=== PATIENT | female | born 1960 | race Caucasian/White ===

== ENCOUNTER → 2018-01-26 08:56 | Outpatient (CLI) | payer BC, SELFPAY ==
--- NOTE | 2018-01-26 08:59 | MM_ITS ---
. MM Dig screening mamm BI w/CAD CAD Screening ORDERING PHYSICIAN : Enma Fleming PATIENT AGE: 57 years GENDER: Female COMPARISON: Previous mammograms: December 2016. September 2015, August 2014 INDICATION: Routine screening. No hormones no new complaints previous benign surgical excisional biopsy right breast Family history. Maternal aunt with breast cancer TECHNIQUE: Standard CC and MLO images were obtained. R2 CAD reviewed. FINDINGS: Moderate breast density with minor elements most evident towards upper-outer quadrant. RIGHT BREAST:Scattered calcifications throughout the upper-outer quadrant right breast appears similar to studies dating back to at least 2016 as well as 2013. No significant progression in interval change. Scattered character favors benign nature follow up one year adequate. The overall glandular pattern of the right breast appears stable. Follow up one year adequate. LEFT BREAST:New~9 mm x 10 mm ovoid density seen at the retroareolar region.. This is labeled X. At may merely reflect a area of ductal prominence cyst but would benefit from from a CC, and 90 degree spot view followed by ultrasound to further evaluate IMPRESSION: LEFT BREAST New appearing 10 mm focal ovoid density retroareolar region. Recommend spot views and ultrasound to further evaluate RIGHT BREAST stable. Follow-up right mammogram in one year BI-RADS Category: 0 Need Additional Imaging Evaluaiton RECOMMENDED FOLLOW-UP: IMM - IMMEDIATE FOLLOW-UP RECOMMENDED Spot views and ultrasound left breast (A letter has been sent to the patient regarding results of the study.)
--- NOTE | 2018-01-26 09:00 | XR_ITS ---
DEXA SCAN.-BONE DENSITY STUDY HIPS AND LUMBAR SPINE HISTORY: Postmenopausal female TECHNIQUE: . The most complete data summary and color graphic presentation of the today's ( and any prior ) DEXA findings are available in PACS. Definition and treatment guidelines included. COMPARISON: None listed LUMBAR SPINE: Mild dextrocurvature L-spine with Overall mild osteopenia L2 vertebral body demonstrates the lowest T score -2.0 with BMD0.961 g/cm sq Overall mean lumbar L1-L4 T score -1.2 with BMD1.04 g/cm sq . . HIPS: Normal bone density at both hips and both femoral necks Femoral neck density is best predictor of hip fracture risk . demonstrates the lowest T score -0.7 with BMD0.935 g/cm sq . Averaging all region included yields today's Hip Mean T score 0.0 with BMD1.008 g/cm sq . . IMPRESSION 1. LUMBAR SPINE: Overall lumbar T score -1.2 indicating osteopenia . Lowest bone density encountered at L2 vertebra with T score = -2.0 2. HIPS: Overall bilateral hip T score 0.0 = normal Normal bone density at AND both femoral necks. WHO criteria for post-menopausal, Women: Normal: T-score at or above -1 SD Osteopenia: T-score between -1 and -2.5 SD Osteoporosis: T-score at or below -2.5 SD
== END ==
PROVIDERS: Family Provider Physician Assistant; PCP Physician Assistant; Visit Provider Physician Assistant
DX: Z12.31 Encounter for screening mammogram for malignant neoplasm of breast (principal); Z13.820 Encounter for screening for osteoporosis
CPT/HCPCS: 77067; 77080

== ENCOUNTER → 2018-02-05 14:19 | Outpatient (CLI) | payer BC, SELFPAY ==
--- NOTE | 2018-02-05 14:25 | MM_ITS ---
MM Dig mamm DX unilat LT CAD, US breast LT complete . ORDERING PHYSICIAN : Enma Fleming PATIENT AGE: 57 years GENDER: Female COMPARISON: Previous mammograms: January 2018, December INDICATION: Further evaluation retroareolar nodular density with diagnostic spot view mammography; & ultrasound TECHNIQUE: Standard CC and MLO images were obtained. R2 CAD reviewed. ======== DIAGNOSTIC LEFT MAMMOGRAM-WITH SPOT VIEWS . Nodular density at the retroareolar region is again seen measuring just over 8 mm. This was noted on recent screening study from January 2018. Ultrasound will be performed to further evaluate. LEFT BREAST ULTRASOUND . Small cluster tiny apocrine cysts most likely accounts for the area seen at the 11:00 retroareolar region on today's ultrasound. This measures up to 8.5 mm length & likely accounts for the ovoid density behind nipple on today and recent mammography. No dilated ducts or intraductal lesions seen on ultrasound. Is also a small, tiny 3.2 mm benign cyst at 10:00. Deep breast. .. Scattered benign axillary lymph nodes surveyed. No significant findings here.. . IMPRESSION: 8 mm cluster small apocrine cyst,... Most Likely accounts for the density on & recent mammograms Would recommend follow-up mammogram and ultrasound 6 months to confirm stability BI-RADS Category: 3 Benign Finding Short Term Follow-up RECOMMENDED FOLLOW-UP: 6M - 6 MONTH FOLLOW-UP (A letter has been sent to the patient regarding results of the study.)
== END ==
PROVIDERS: Family Provider Physician Assistant; PCP Physician Assistant; Visit Provider Physician Assistant
DX: R92.8 Other abnormal and inconclusive findings on diagnostic imaging of breast (principal)
CPT/HCPCS: 76641; 77065

== ENCOUNTER → 2018-07-30 12:46 | Outpatient (CLI) | payer BC, SELFPAY ==
--- NOTE | 2018-07-30 12:52 | MM_ITS ---
MM Dig mamm DX unilat LT CAD Ordering Physician: Enma Fleming Patient Age: 57 years Female COMPARISON: January 26, 2018, December 2016, September 2015, left mammogram February 2017 INDICATION: Follow-up nodularity retroareolar region left breast. . DIAGNOSTIC LEFT MAMMOGRAM: TECHNIQUE. Full Cc MLO along with CC and MLO spot views left breast performed.. findings: Left breast appears stableNo new areas of concern. . If anything the nodularity at retroareolar region slightly less apparent than on February studies.. Resume Routine follow-up adequate ========= LEFT BREAST ULTRASOUND including axillary survey: On previous February 2018 ultrasound there is a cluster of tiny apocrine cysts at 10 o'clock position. This area is regressed decreased in size since prior study intermediate echogenicity-tiny cysts at this specific area with less fluid.... Now measures 6.5 mm length of 2.6 mm (previously 8.3 mm length x 4.2 mm). This can be followed At 10:00 central breast tiny less than 3 mm cyst At 2:00 small benign 6 mm x 2.6 mm cyst.. Axillary survey with a few small benign lymph node nodes. Largest 1.7 cm ------ IMPRESSION: ------ 1. Stable left mammogram. No new areas of concern 2. Left breast ultrasound: Regression of the previously noted clustered tiny apocrine cyst collection at10:00. This area can be followed . 3. Resume annual bilateral screening mammogram schedule follow-up BI-RADS Category: 2 Benign Finding(s) RECOMMENDED FOLLOW-UP: 6M 6 MONTH FOLLOW-UP to Resume annual bilateral screening schedule. A letter has been sent to the patient regarding results of the study.) Dictated By: Raphael Maxwell Signed By: 08/02/18 0809
--- NOTE | 2018-07-30 14:44 | US_ITS ---
Ordering Physician: Enma Fleming Birad: 2Benign Finding(s) Date of Service: 07/30/18 Follow Up: 6 Month Follow-Up Procedure(s): MM Dig mamm DX unilat LT CAD Accession Number(s): [id number] cc: Enma Fleming ; Raphael Maxwell MM Dig mamm DX unilat LT CAD Ordering Physician: Enma Fleming Patient Age: 57 years Female COMPARISON: January 26, 2018, December 2016, September 2015, left mammogram February 2017 INDICATION: Follow-up nodularity retroareolar region left breast. ===== DIAGNOSTIC LEFT MAMMOGRAM: TECHNIQUE. Full Cc MLO along with CC and MLO spot views left breast performed.. findings: Left breast appears stableNo new areas of concern. . If anything the nodularity at retroareolar region slightly less apparent than on February studies.. Resume Routine follow-up adequate ==== LEFT BREAST ULTRASOUND including axillary survey: On previous February 2018 ultrasound there is a cluster of tiny apocrine cysts at 10 o'clock position. This area is regressed decreased in size since prior study intermediate echogenicity-tiny cysts at this specific area with less fluid.... Now measures 6.5 mm length of 2.6 mm (previously 8.3 mm length x 4.2 mm). This can be followed At 10:00 central breast tiny less than 3 mm cyst At 2:00 small benign 6 mm x 2.6 mm cyst.. Axillary survey with a few small benign lymph node nodes. Largest 1.7 cm ------ IMPRESSION: ------ 1. Stable left mammogram. No new areas of concern 2. Left breast ultrasound: Regression of the previously noted clustered tiny apocrine cyst collection at10:00. This area can be followed . 3. Follow-up in one year recommended BI-RADS Category: 2 Benign Finding(s) RECOMMENDED FOLLOW-UP: 6M 6 MONTH FOLLOW-UP to Resume annual bilateral screening schedule. A letter has been sent to the patient regarding results of the study.) Dictated By: Raphael Maxwell Signed By: 08/02/18 0809
== END ==
PROVIDERS: PCP Physician Assistant; Visit Provider Physician Assistant
DX: R92.8 Other abnormal and inconclusive findings on diagnostic imaging of breast (principal)
CPT/HCPCS: 76641; 77065

== ENCOUNTER → 2020-02-19 10:04 | Outpatient (CLI) | payer BC, SELFPAY ==
--- NOTE | 2020-02-19 10:11 | XR_ITS ---
PROCEDURE: XR MULTIPLE SPINE 6+V CLINICAL INDICATION: LOW BACK PAIN COMPARISON: No exams were available for comparison FINDINGS: Thoracic spine: There is mild multilevel degenerative disc disease with normal alignment. No acute fracture or dislocation. Lumbar spine: Mild lumbar scoliosis convex right. Degenerative disc disease L4-5 and L5-S1. No lytic or blastic change. IMPRESSION: Multilevel thoracic and lumbar degenerative changes Dictated by: Zac Live MD 02/19/2020 14:55 Electronically signed by Zac Live MD in [place] 02/19/2020 14:55
== END ==
PROVIDERS: PCP Nurse Practitioner Family; Visit Provider Nurse Practitioner Family
DX: M54.5 Low back pain (principal)
CPT/HCPCS: 72084

== ENCOUNTER → 2020-02-24 16:40 | Outpatient (CLI) | payer BC, SELFPAY ==
--- NOTE | 2020-02-24 | MM_ITS ---
PROCEDURE: MM DIG SCREENING MAMM BI W/CAD DIGITAL BREAST TOMOSYNTHESIS INCLUDED Patient Age:59Y CLINICAL INDICATION: ROUTINE SCREENING but no hormones but no new complaints.. Right breast. Previous excisional biopsy. Family history. Maternal aunt with breast cancer COMPARISON: [facility] D[facility] MAMM-SCREEN MYRANDA from 08/29/2014 [facility] D[facility] MAMM-SCREEN MYRANDA from 09/16/2015 [facility] MAMM-SCREEN MYRANDA W/CAD from 12/22/2016 [facility] MM Dig screening mamm BI w/CAD from 01/26/2018 BREASTLT US breast LT complete from 02/05/2018 [facility] MM Dig mamm DX unilat LT CAD from 02/05/2018 DXLT MM Dig mamm DX unilat LT CAD from 07/30/2018 BREASTLT US breast LT complete from 07/30/2018 TECHNIQUE: Standard CC and MLO images were obtained. R2 CAD reviewed. Bilateral digital breast tomosynthesis included.. Additional axillary CC view both breast included FINDINGS: Stable appearing wqlv-da-admnivit fibroglandular elements bilaterally most evident towards upper-outer quadrant. Stable mild asymmetry but no new dominant or suspicious mass. No suspicious calcifications. Right breast no new areas of concern t Left breast: No new areas of significant concern. The the cyst/nodule at the retroareolar region noted in 1999 [age] a is no longer evident However there is a stable small spindle shaped area lateral central breast is again noted and appears similar to 2018 MLO and CC view is seen on tomosynthesis today. It measures up to 9 mm x 4.5 mm on today's MLO view. A small elongated cyst at 2 o'clock noted on July 2018 ultrasound may correlate. Given the stability since 2018 mammogram believe a follow-up bilateral mammogram 1 year adequate but should be encouraged emphasized IMPRESSION: No new areas of significant concern Small stable ovoid density at the lateral left breast most likely cyst.-No significant change here since 2018 Bilateral follow-up 1 year recommended and should be emphasized/encouraged BI-RAD Category: 2 Benign Finding(s) FOLLOW-UP: 1YR 1 Year Follow-up (A letter has been sent to the patient regarding results of the study.) Dictated by: Kristopher Maxwell MD 02/26/2020 11:13 Electronically signed by Kristopher Maxwell MD in [place] 02/26/2020 11:13
== END ==
PROVIDERS: PCP Nurse Practitioner Family; Visit Provider Nurse Practitioner Family
DX: Z12.31 Encounter for screening mammogram for malignant neoplasm of breast (principal)
CPT/HCPCS: 77063; 77067

== ENCOUNTER → 2020-03-17 13:22 | Outpatient (CLI) | payer BC, SELFPAY ==
--- NOTE | 2020-03-17 | XR_ITS ---
PROCEDURE: XR HIP RT 2-3V W/PELVIS CLINICAL INDICATION: Pain pain COMPARISON: XR HIP LT 2-3V W/PELVIS from 03/17/2020 FINDINGS: No fracture or dislocation is evident. No significant degenerative change. No lytic or blastic change. Unremarkable soft tissues. 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
--- NOTE | 2020-03-17 | XR_ITS ---
PROCEDURE: XR HIP LT 2-3V W/PELVIS CLINICAL INDICATION: USPECIFIED OSTEOARTHRITIS, USPECIFIED SITE Pain COMPARISON: No exams were available for comparison FINDINGS: No fracture or dislocation is evident. No significant degenerative change. No lytic or blastic change. Unremarkable soft tissues. IMPRESSION: Negative left hip Dictated by: Zac Live MD 03/17/2020 14:46 Electronically signed by Zac Live MD in [place] 03/17/2020 14:46
--- NOTE | 2020-03-17 13:30 | XR_ITS ---
PROCEDURE: XR KNEE LT 2V CLINICAL INDICATION: pain COMPARISON: KNEE3R KNEE-3 VIEWS-RT from 09/02/2015 KNEE3L KNEE-3 VIEWS-LT from 06/17/2017 FINDINGS: No fracture or dislocation. No lytic or blastic change. There is normal mineralization. Mild osteoarthritic change of the medial and lateral compartment Other findings:None. IMPRESSION: Mild osteoarthritis Dictated by: Zac Live MD 03/17/2020 14:48 Electronically signed by Zac Live MD in [place] 03/17/2020 14:48
--- NOTE | 2020-03-17 13:30 | XR_ITS ---
PROCEDURE: XR KNEE RT 2V CLINICAL INDICATION: Knee pain COMPARISON: KNEE3R KNEE-3 VIEWS-RT from 09/02/2015 KNEE3L KNEE-3 VIEWS-LT from 06/17/2017 FINDINGS: No fracture or dislocation. No lytic or blastic change. There is normal mineralization. There are mild tricompartmental osteoarthritic changes Other findings:None. IMPRESSION: Mild osteoarthritis Dictated by: Zac Live MD 03/17/2020 14:47 Electronically signed by Zac Live MD in [place] 03/17/2020 14:47
== END ==
PROVIDERS: PCP Nurse Practitioner Family; Visit Provider Internal Medicine Rheumatology
DX: M19.90 Unspecified osteoarthritis, unspecified site (principal)
CPT/HCPCS: 73502; 73560

== ENCOUNTER → 2020-06-18 07:40 | Outpatient (CLI) | payer BC, SELFPAY ==
--- NOTE | 2020-06-18 07:47 | CT_ITS ---
PROCEDURE: CT HEAD/BRAIN WO CON CLINICAL INDICATION: PERSISTENT HEADACHE COMPARISON: No exams were available for comparison TECHNIQUE: Axial images obtained. All CT scans at the facility use one or more dose reduction, viz: automated exposure control, ma/kV adjustment per patient size (including targeted exams where dose is matched to indication, i.e. head), or iterative reconstruction technique. FINDINGS: No midline shift, mass effect, intracranial hemorrhage, hydrocephalus, or extra-axial fluid collection is evident. The calvarium has an unremarkable appearance. No mastoid effusion. No sinus air-fluid level. Because ule thickening of the roof of the maxillary sinus on the right. IMPRESSION: No acute intracranial finding Dictated by: Zac Live MD 06/18/2020 13:25 Zac Live MD in [place] 06/18/2020 13:25
== END ==
PROVIDERS: PCP Nurse Practitioner Family; Visit Provider Nurse Practitioner Family
DX: G44.52 New daily persistent headache (NDPH) (principal)
CPT/HCPCS: 70450

== ENCOUNTER 2021-09-15 17:07 | Emergency (ER) | payer BC, SELFPAY ==
--- NOTE | 2021-09-15 17:21 | XR_ITS ---
PROCEDURE INFORMATION: Exam: XR Right Hand Exam date and time: 09/15/2021 5:21 PM Age: 60 years old Clinical indication: Pain; Hand; Right; Additional info: Pain at 3rd mcp joint; No injury or trauma TECHNIQUE: Imaging protocol: XR Right hand. Views: 3 or more views. COMPARISON: No relevant prior studies available. FINDINGS: Bones/joints: No fracture. Degenerative/arthritic change at the 3rd metacarpal phalangeal joint, no periarticular erosion. Soft tissues: Possible minimal edema. IMPRESSION: 3rd MCP joint degenerative/arthritic change.
[2021-09-15 17:26] VITALS: BP 148/88; PULSE 66; RESP 18; TEMP 36.8; O2SAT 97; BMI 41.5
--- NOTE | 2021-09-15 17:54 | HMH.EDUTC ---
[facility] [place] Disposition Clinical Impression: Hand pain Qualifiers: Laterality: right Qualified Code(s): M79.641 - Pain in right hand Disposition: Home, Self-Care Condition on Discharge: Good Instructions: DI for Arthritis Additional Instructions: Power wrap may help with swelling and pain Elevate when at rest may help with swelling Follow up iwth your Family Doctor if no improvement or any worsening of symptoms Over the counter Motrin and/or Tylenol arthritis if you can take it Return if needed Follow up with your Family Doctor if symptoms persist Referrals: Karen Darling [Primary Care Provider] - As needed Time of Disposition: 18:18 Medical Decision Making - Mika Inquiry Pt receiving controlled substance: No Mika was queried for this patient: No Vital Signs: 09/15/21 17:26 Temperature 98.3 F Temperature Source Oral Pulse Rate [Left] 66 Respiratory Rate 18 Blood Pressure [Right Arm] 148/88 H Blood Pressure Mean [Right Arm] 108 02 Sat by Pulse Oximetry 97 [facility] [place] HPI - General Stated complaint: Pain R hand Time Seen by Provider: 09/15/21 17:54 Mode of Arrival: Ambulatory Source of Information: Patient Limitations: No Limitations Description of Symptoms (Recalled from Triage Doc. by RN): pt states she woke up with am with R hand pain. pt states he hand started swelling as the day went on. pts index and middle finger knuckes are swollen. HEENT Symptoms (Recalled from RN notes): No Resp Symptoms (Recalled from RN notes): No Skin Symptoms (Recalled from RN notes): No MS Symptoms (Recalled from RN notes): Yes Functional Status (Recalled from RN notes): wnl - History of Present Illness Provider Complaint: Patient states that when she woke up this morning she was having pain in her right hand State that she went on about a her day and noticed it looked like she was having some swelling around the base of her index and middle finger and hurt when she would try to bend them so this evening she was still having pain so she came in - Related Data Allergies Allergy/AdvReac Type Severity Reaction Status Date / Time cephalexin [From KEFLEX] Allergy Intermediate I-HIVES Verified 12/12/18 15:23 codeine [CODEINE] Allergy Mild NA-NAUSEA/V Verified 12/12/18 15:23 OMITING levofloxacin [From LEVAQUIN] Allergy Mild JOINT Verified 12/12/18 15:23 PAIN - Worker's Comp Is this a Worker's Comp case?: No H History - Hepatitis A Screen Drug use history?: No High risk sexual behaviors?: No History of sexually transmitted infection?: No Currently employed?: No Childcare worker?: No Do you have indoor plumbing?: Yes Do you have electricity?: Yes Attestation statement:: This patient has been screened for Hepatitis A risk factors. I have reviewed the patient's past medical history: Yes Laterality Cases: Bilateral: Tonsillectomy Fractures: Yes (HAND,ANKLE,ARM) - Social History Alcohol Intake: never Occupational Status: employed ROS Obtained: Yes All systems reviewed & no additional complaints, Yes Systems reviewed as appropriate & no additional complaints - Constitutional Constitutional: Reports system reviewed and no additional complaints, except as docu, Denies body ache, Denies chills, Denies fever(s) - ENT Ears, Nose, Mouth, and Throat: Reports system reviewed and no additional complaints, except as docu - Cardiovascular Cardiovascular: Reports system reviewed and no additional complaints, except as docu - Respiratory Respiratory: Reports system reviewed and no additional complaints, except as docu - Gastrointestinal Gastrointestingal: Reports: system reviewed and no additional complaints, except as docu - Musculoskeletal Musculoskeletal: Reports system reviewed and no additional complaints, except as docu, Reports other (pain and mild swelling in right hand no injury) Physical Exam - General General appearance: alert, in no apparent distress - Respiratory Respiratory exam: Present: n
[2021-09-15 18:20] VITALS: BP 148/88; PULSE 66; RESP 18; TEMP 36.8
== END 2021-09-15 18:21 | disposition home or self-care (01) ==
PROVIDERS: Emergency Provider Nurse Practitioner; PCP Nurse Practitioner Family
DX: M79.641 Pain in right hand (principal); Z88.1 Allergy status to other antibiotic agents
CPT/HCPCS: 73130; 99202; G0463

== ENCOUNTER 2022-06-14 13:18 | Inpatient (IN) | payer BC, SELFPAY ==
[2022-06-14] VITALS (8 sets, daily range): BP systolic 110–147; BP diastolic 62–87; PULSE 85–103; RESP 16–18; TEMP 37.4–38; O2SAT 94–98; BMI 41.9; BMI 42.0
--- NOTE | 2022-06-14 13:35 | CT_ITS ---
FINAL REPORT CLINICAL HISTORY: Lwr abd pain wrapping around to bilat sides of lwr back x 1 day, NKT FINDINGS: CT OF THE ABDOMEN AND PELVIS WITH CONTRAST Axial CT images of the abdomen and pelvis were obtained after the administration of intravenous contrast. Coronal reformatted images were also obtained and reviewed.This study was performed with techniques to keep radiation doses as low as reasonably achievable (ALARA). Individualized dose reduction techniques using automated exposure control or adjustment of mA and/or kV according to the patient's size were employed. Abdomen: There is mild bibasilar atelectasis.. The heart is normal in size. The liver has an unremarkable appearance. There is evidence of cholecystectomy. There is mild biliary duct dilatation that may represent post cholecystectomy change. The spleen is unremarkable. No adrenal mass is present. The pancreas has an unremarkable appearance. The kidneys are normal, without evidence of mass or hydronephrosis. The aorta is normal in caliber. There is no free fluid or adenopathy. No mass or abnormal fluid collection is seen. Pelvis: The appendix is not well-visualized. The urinary bladder is unremarkable. There is diverticulosis of the sigmoid colon. There is stranding adjacent to the proximal sigmoid colon that may represent mild acute diverticulitis or sequela of prior diverticulitis. There is a focus of extraluminal air in this region consistent with micro perforation. Inferior to the inflammation is a 3.4 cm focus of heterogeneous soft tissue of uncertain etiology. This could represent the left ovary or possibly inflamed soft tissue. There has been hysterectomy. IMPRESSION: Sigmoid colon diverticulosis with adjacent stranding that may represent mild acute diverticulitis or sequela of prior diverticulitis. There is a micro perforation in this region. Heterogeneous soft tissue inferior to the inflammation could represent the left ovary or possibly inflamed soft tissue. This could be followed up with CT or ultrasound. Reviewed, Interpreted and Dictated by Young Leroy III, MD Transcribed by Wyatt Saba Authenticated and [facility]
[2022-06-14 13:42] LABS: Microscopic, Urine URINE MICROSCOPIC (MICROSCOPIC)
--- NOTE | 2022-06-14 13:45 | HMH.EDGENADL ---
Discharge Plan Disposition Patient Disposition: Admitted As Inpatient Condition: Fair Referrals Follow up/Referrals: Karen Darling [Primary Care Provider] - See instructions Clinical Impressions Clinical Impression: Diverticulitis of colon with perforation Instructions Patient Instructions: DI for Acute Abdominal Pain Discharge ED Provider: Ismael Sanabria General Adult HPI General Chief complaint: Abdominal Pain Stated complaint: Severe stomach pain Time Seen by Provider: 06/14/22 13:39 Mode of Arrival: Ambulatory Source of Information: Patient Limitations: No Limitations Description of Symptoms (Recalled from ER Triage Doc. by RN): c/o lower abdominal pain that started earlier today with pain traveling to her back now, fever and chills, tylenol taken prior to arrival, clint any n/v/d History of Present Illness HPI narrative: This morning awakened with left lower quadrant pain which is since now become diffuse across her lower abdomen into her lower back. Developed a fever of 102 degrees and chills. She took Tylenol for that. No nausea, vomiting, diarrhea, or urinary symptoms. No previous similar symptoms. She has had a prior cholecystectomy and appendectomy. Related Data Allergies Allergy/AdvReac Type Severity Reaction Status Date / Time cephalexin [From KEFLEX] Allergy Intermediate I-HIVES Verified 12/12/18 15:23 codeine [CODEINE] Allergy Mild NA-NAUSEA/V Verified 12/12/18 15:23 OMITING levofloxacin [From LEVAQUIN] Allergy Mild JOINT Verified 12/12/18 15:23 PAIN PFSH PFSH Social History Smoking Status: Never smoker alcohol intake: never current occupational status: employed Travel in the last 8 weeks: None ROS Obtained: Yes Systems reviewed as appropriate & no additional complaints except as documented Constitutional Constitutional: Reports chills, Reports fever(s), Denies headache(s) and Denies weakness ENT Ears, Nose, Mouth, and Throat: Denies headache(s), Denies nasal discharge and Denies sore throat Cardiovascular Cardiovascular: Denies chest pain Respiratory Respiratory: Denies shortness of breath and Denies cough Gastrointestinal Gastrointestingal: Reports abdominal pain; Denies constipation, diarrhea or vomiting Genitourinary Female Genitourinary: Denies difficulty voiding, Denies dysuria and Denies flank pain Musculoskeletal Musculoskeletal: Denies numbness Neurologic Neurologic: Denies headache(s), Denies numbness and Denies weakness Physical Exam General General appearance: alert and in no apparent distress Head Head exam: atraumatic and normocephalic Eye Eye exam: Present normal appearance and EOMI ENT ENT exam: Present mucous membranes moist Neck Neck exam: Present normal inspection and trachea midline Chest Chest inspection: Present normal inspection and symmetric chest wall rise Respiratory Respiratory exam: Present normal lung sounds bilaterally; Absent respiratory distress Cardiovascular Cardiovascular exam: Present regular rate, normal rhythm and normal heart sounds Abdominal Exam Abdominal exam: Present soft, tenderness and diminished bowel sounds; Absent distention, guarding, rebound or rigidity Abdominal tenderness: Present RLQ, LLQ and suprapubic Extremities Exam Extremities exam: Present normal inspection Back Exam Back exam: Absent CVA tenderness (R) or CVA tenderness (L) Neurological Exam Neurological exam: Present alert and oriented X3 Psychiatric Psychiatric exam: Present normal affect and normal mood Skin Skin exam: Present warm and dry Medical Decision Making Mika Inquiry Pt receiving controlled substance: No Vital Signs: 06/14/22 13:18 06/14/22 14:01 06/14/22 14:30 Temperature 99.5 F Temperature Source Oral Pulse Rate 85 90 Pulse Rate [Left Radial] 91 H Respiratory Rate 18 18 16 Blood Pressure 127/62 147/63 H Blood Pressure [Right Arm] 134/74 Blood Pressure Mean 93 91 Blood Pressure Mean [Right Arm] 94 Blood P
[2022-06-14 13:48] LABS: Alanine Aminotransferase 27 U/L (12-78); Albumin Level 4.2 g/dl (3.5-5.0); Albumin/Globulin Ratio 1.2 (1.1-1.8); Alkaline Phosphatase 143 U/L (38-126); Amylase 62 U/L (30-110); Anion Gap 12.2 mEq/L (5-15); Aspartate Amino Transferase 32 U/L (14-36); Bilirubin,Total 0.6 mg/dl (0.2-1.3); Blood Urea Nitrogen 19 mg/dl (7-17); Carbon Dioxide 27 mmol/L (22.0-30.0); Chloride 102 mmol/L (98-107); Creatinine Clearance Estimated 53 mL/min (50-200); Estimated Glomerular Filt Rate 73 ml/min (>60); GFR (African American) 88 ML/MIN (>60); Globulin 3.4 g/dL (1.3-3.2); Glucose 100 mg/dl (74-100); Lipase 197 U/L (23-300); Potassium 4.2 mmoL/L (3.5-5.1); Sodium 137 mmol/L (136-145); Total Protein,Serum 7.6 g/dl (6.3-8.2)
[2022-06-14 13:50] LABS: Appearance,Urine CLEAR (Clear); Bilirubin,Urine Negative (Negative); Blood, Urine Negative (Negative); Color,Urine YELLOW (Yellow); Glucose,Urine (UA) Negative (Negative); Ketones,Urine Negative (Negative); Leukocyte Esterase,Urine Negative (Negative); Nitrate,Urine Negative (Negative); PH,Urine 6.5 (5.0-8.5); Protein,Urine Negative (Negative); Urobilinogen,Urine 0.2 EU/dl (0.2)
[2022-06-14 13:56] LABS: Basophils # 0.1 K/mm3 (0-0.2); Basophils % 0.4 % (0.1-2.0); Eosinophils # 0.2 K/mm3 (0.0-0.4); Eosinophils % 1.3 % (0.1-12.0); Hemoglobin 14.4 g/dL (12.2-16.2); Lymphocytes # 1.1 K/mm3 (0.7-4.5); Lymphocytes % 8.2 % (10-50); Mean Corpuscular HGB Conc 32.7 g/dL (31.8-35.4); Mean Corpuscular Hemoglobin 27.9 pg (27.0-31.2); Mean Corpuscular Volume 85.1 fl (81-99); Mean Platelet Volume 7.7 fl (7.4-10.4); Monocytes # 0.5 K/mm3 (0.1-1.0); Monocytes % 3.8 % (1.7-9.3); Neutrophils # 11.3 K/mm3 (1.8-7.8); Neutrophils % 86.3 % (37.0-80.0); Platelet Count 282 K/mm3 (142-424); Red Blood Count 5.17 M/mm3 (4.20-5.40); Red Cell Distribution Width 13.4 % (11.5-17.5); White Blood Count 13.1 K/mm3 (4.8-10.8)
[2022-06-14 14:08] LABS: MANUAL DIFFERENTIAL MANUAL DIFFERENTIAL (MANUAL DIFF)
[2022-06-14 14:09] LABS: Coronavirus 19, PCR Not Detected (NotDetected); Influenza A, PCR Not Detected (NotDetected); Influenza B, PCR Not Detected (NotDetected)
[2022-06-14 14:13] LABS: Lymphocytes % 13 % (10-50); Monocytes % 5 % (2-9); Neutrophils % 82 % (42-76); Total Cells Counted 100
[2022-06-14 14:14] LABS: Platelet Estimate Normal; RBC Morphology Normal
--- NOTE | 2022-06-14 15:18 | PC.NURSE ---
Dr Sanabria speaking with Dr Weinstein
--- NOTE | 2022-06-14 15:23 | EXP.SURG.CON ---
History of Present Illness *Admission Date: 06/14/22 *Reason for visit:: Abdominal pain, diverticulitis *History of present illness: Patient is a 61-year-old female from [place]. She had presented to the emergency department with complaints of lower abdominal pain beginning earlier today with radiation into her back. She did have some apparent fevers at home and had treated prior to arrival with Tylenol. Pain initiated in the left lower quadrant and then became more diffuse with radiation to the back. She has previously had cholecystectomy as well as appendectomy. Evaluation in the emergency department revealed mild leukocytosis of 13,000. She underwent CT scan which revealed findings of sigmoid diverticulosis with adjacent stranding which may represent mild acute diverticulitis . However, there was also a microperforation in this region . There was also noted to be heterogeneous soft tissue inferior to the findings of inflammation which was felt to be possibly left ovary or possibly inflamed soft tissue according to the radiologist reading. Patient does state that she had a colonoscopy about 5 years ago. Exact details are unknown. [facility] Medical History (Updated 06/14/22 @ 15:51 by Divya Wilson RN) Hypertension Hypothyroid Surgical History (Updated 06/14/22 @ 15:51 by Divya Wilson RN) History of appendectomy History of cholecystectomy History of hysterectomy History of tonsillectomy Social History Smoking Status: Never smoker alcohol intake: never current occupational status: employed Travel in the last 8 weeks: None Review of Systems Constitutional Constitutional: Denies headache(s) and Denies weakness ENT Ears, Nose, Mouth, and Throat: Denies headache(s) *Musculoskeletal Musculoskeletal: Denies numbness *Neurologic Neurologic: Denies headache(s), Denies numbness and Denies weakness Meds Home Medications and Allergies Home Medications Medication Instructions Recorded Confirmed Type buspirone 10 mg tablet 10 mg PO TID Anxiety 06/14/22 06/14/22 History fluoxetine 10 mg capsule 10 mg PO .EVERY OTHER DAY mood 06/14/22 06/14/22 History levothyroxine 112 mcg tablet 112 mcg PO DAILY thyroid 06/14/22 06/14/22 History liothyronine 5 mcg tablet 5 mcg PO DAILY thyroid 06/14/22 06/14/22 History liraglutide (weight loss) 3 mg/0.5 0.6 mg SQ DAILY Weight loss 06/14/22 06/14/22 History mL (18 mg/3 mL) subcut pen injector (Sathish) losartan 25 mg tablet 25 mg PO DAILY High blood pressure 06/14/22 06/14/22 History meloxicam 15 mg tablet 15 mg PO DAILY muscle relaxant 06/14/22 06/14/22 History New Prescriptions to Start Prescriptions: Allergies Allergy/AdvReac Type Severity Reaction Status Date / Time cephalexin [From KEFLEX] Allergy Intermediate I-HIVES Verified 12/12/18 15:23 codeine [CODEINE] Allergy Mild NA-NAUSEA/V Verified 12/12/18 15:23 OMITING levofloxacin [From LEVAQUIN] Allergy Mild JOINT Verified 12/12/18 15:23 PAIN Exam (Inpt) Vital signs and Labs for Last 24 Hours: Temp Pulse Resp BP Pulse Ox 99.5 F 90 16 147/63 H 98 06/14/22 13:18 06/14/22 14:30 06/14/22 14:30 06/14/22 14:30 06/14/22 14:30 Laboratory Results - last 24 hr 06/14/22 13:21: Urine Color Yellow, Urine Appearance Clear, Urine pH 6.5, Ur Specific [place] 1.010, Urine Protein Negative, Urine Glucose (UA) Negative, Urine Ketones Negative, Urine Blood Negative, Urine Nitrate Negative, Urine Bilirubin Negative, Urine Urobilinogen 0.2, Ur Leukocyte Esterase Negative, Urine RBC None, Urine WBC 3-5, Ur Squamous Epith Cells 5-10, Urine Bacteria None 06/14/22 13:30: WBC 13.1 H, RBC 5.17, Hgb 14.4, Hct 44.0, MCV 85.1, MCH 27.9, MCHC 32.7, RDW 13.4, Plt Count 282, MPV 7.7, Neut % (Auto) 86.3 H, Lymph % (Auto) 8.2 L, [place] % (Auto) 3.8, Eos % (Auto) 1.3, Baso % (Auto) 0.4, Neut # (Auto) 11.3 H, Lymph # (Auto) 1.1, [place] # (Auto) 0.5, Eos # (Auto) 0.2, Baso # (Auto) 0.1, Total Counted 100, Neutr
--- NOTE | 2022-06-14 15:24 | PC.NURSE ---
Dr Sanabria speaking to hospitalist
--- NOTE | 2022-06-14 15:32 | PC.NURSE ---
Dr Sanabria spoke with Dr Kumar for admission
--- NOTE | 2022-06-14 15:46 | PC.NURSE ---
Dr Weinstein in with pt.
--- NOTE | 2022-06-14 15:46 | PC.NURSE ---
Care management called for admission
--- NOTE | 2022-06-14 16:00 | HMH.PHAINT1 ---
Pharmacy Intervention Comments: Home medication reconciliation completed using outpatient pharmacy list.
--- NOTE | 2022-06-14 16:12 | PC.NURSE ---
called report to dylan on med/surg. awaiting admission orders by hospitalist
--- NOTE | 2022-06-14 16:28 | EXP.HP ---
History of Present Illness *Admission Date: 06/14/22 *History of present illness: Patient is a 61-year-old female from [place]. She had presented to the emergency department with complaints of lower abdominal pain beginning earlier today with radiation into her back. She did have some apparent fevers at home and had treated prior to arrival with Tylenol. Pain initiated in the left lower quadrant and then became more diffuse with radiation to the back. Pt has h/o cholecystectomy, appendectomy, and hysterectomy. She does still have her ovaries. Evaluation in the emergency department revealed mild leukocytosis of 13.1. She underwent CT scan which revealed findings of sigmoid diverticulosis with adjacent stranding which may represent mild acute diverticulitis . However, there was also a microperforation in this region . There was also noted to be heterogeneous soft tissue inferior to the findings of inflammation which was felt to be possibly left ovary or possibly inflamed soft tissue according to the radiologist reading. Patient does state that she had a colonoscopy about 5 years ago. Exact details are unknown. - Pt reports fever of 102 at home and chills, ROS is otherwise negative. PFSH PFSH Medical History (Updated 06/14/22 @ 16:37 by Fuentes Kumar MD) Hypertension Hypothyroid Surgical History (Updated 06/14/22 @ 15:51 by Divya Wilson RN) History of appendectomy History of cholecystectomy History of hysterectomy History of tonsillectomy Social History Smoking Status: Never smoker alcohol intake: never current occupational status: employed Travel in the last 8 weeks: None Review of Systems Constitutional Constitutional: Reports chills, Reports fatigue, Reports fever(s), Denies headache(s) and Denies weakness Eyes Eyes: Denies change in vision ENT Ears, Nose, Mouth, and Throat: Denies dizziness, Denies dysphagia, Denies headache(s) and Denies sinus pressure *Cardiovascular Cardiovascular: Denies chest pain, Denies dyspnea, Denies edema and Denies palpitations *Respiratory Respiratory: Denies cough, Denies dyspnea and Denies hemoptysis *Gastrointestinal Gastrointestinal: Reports abdominal pain (LLQ), Denies change in bowel habits, Denies change in stool character, Denies coffee ground emesis, Denies constipation, Denies dysphagia, Denies hematemesis, Denies hematochezia and Denies melena *Genitourinary Genitourinary: Denies difficulty voiding, Denies dysuria and Denies hematuria *Musculoskeletal Musculoskeletal: Denies abnormal gait, Denies arthralgias and Denies numbness *Neurologic Neurologic: Denies abnormal gait, Denies behavioral changes, Denies confusion, Denies dizziness, Denies headache(s), Denies numbness and Denies weakness Psychiatric Psychiatric: Denies anxiety, Denies behavioral changes, Denies change in appetite, Denies confusion and Denies depression Endocrine Endocrine: Reports fatigue and Denies palpitations Meds Home Medications and Allergies Home Medications Medication Instructions Recorded Confirmed Type buspirone 10 mg tablet 10 mg PO TID Anxiety 06/14/22 06/14/22 History fluoxetine 10 mg capsule 10 mg PO .EVERY OTHER DAY mood 06/14/22 06/14/22 History levothyroxine 112 mcg tablet 112 mcg PO DAILY thyroid 06/14/22 06/14/22 History liothyronine 5 mcg tablet 5 mcg PO DAILY thyroid 06/14/22 06/14/22 History liraglutide (weight loss) 3 mg/0.5 0.6 mg SQ DAILY Weight loss 06/14/22 06/14/22 History mL (18 mg/3 mL) subcut pen injector (Saxenda) losartan 25 mg tablet 25 mg PO DAILY High blood pressure 06/14/22 06/14/22 History meloxicam 15 mg tablet 15 mg PO DAILY muscle relaxant 06/14/22 06/14/22 History New Prescriptions to Start Prescriptions: Allergies Allergy/AdvReac Type Severity Reaction Status Date / Time cephalexin [From KEFLEX] Allergy Intermediate I-HIVES Verified 12/12/18 15:23 codeine [CODEINE] Allergy Mild NA-NAUSEA/V Verified 12/12/18 15:23 OMITING levof
[2022-06-15] VITALS (7 sets, daily range): BP systolic 109–127; BP diastolic 60–77; PULSE 72–82; RESP 17–18; TEMP 36.7–37.3; O2SAT 94–97; BMI 42.0
--- NOTE | 2022-06-15 05:44 | PC.NURSE ---
AOx4. Pt has c/o of mid lower abdominal pain 2 x t/o shift. IV Toradol administered per MAR, pt states favorable results. Able to ambulate to BR with standby assist. Call light within reach.
[2022-06-15 06:33] LABS: Chloride 108 mmol/L (98-107); Potassium 3.7 mmoL/L (3.5-5.1); Sodium 140 mmol/L (136-145)
[2022-06-15 06:35] LABS: Blood Urea Nitrogen 14 mg/dl (7-17); Creatinine Clearance Estimated 53 mL/min (50-200); Estimated Glomerular Filt Rate 73 ml/min (>60); GFR (African American) 88 ML/MIN (>60)
[2022-06-15 06:36] LABS: Alanine Aminotransferase 21 U/L (12-78); Albumin Level 3.4 g/dl (3.5-5.0); Albumin/Globulin Ratio 1.2 (1.1-1.8); Alkaline Phosphatase 116 U/L (38-126); Anion Gap 10.7 mEq/L (5-15); Aspartate Amino Transferase 28 U/L (14-36); Bilirubin,Total 0.8 mg/dl (0.2-1.3); Carbon Dioxide 25 mmol/L (22.0-30.0); Globulin 2.9 g/dL (1.3-3.2); Glucose 99 mg/dl (74-100); Total Protein,Serum 6.3 g/dl (6.3-8.2)
[2022-06-15 06:37] LABS: Magnesium 2.1 mg/dl (1.6-2.3)
[2022-06-15 06:46] LABS: Basophils % 0.4 % (0.1-2.0); Eosinophils # 0.2 K/mm3 (0.0-0.4); Eosinophils % 2.8 % (0.1-12.0); Hematocrit 38.7 % (37.0-47.0); Lymphocytes # 1.1 K/mm3 (0.7-4.5); Lymphocytes % 13.1 % (10-50); Mean Corpuscular HGB Conc 31.4 g/dL (31.8-35.4); Mean Corpuscular Hemoglobin 27.2 pg (27.0-31.2); Mean Corpuscular Volume 86.7 fl (81-99); Mean Platelet Volume 7.3 fl (7.4-10.4); Monocytes # 0.5 K/mm3 (0.1-1.0); Monocytes % 5.9 % (1.7-9.3); Neutrophils # 6.5 K/mm3 (1.8-7.8); Neutrophils % 77.9 % (37.0-80.0); Platelet Count 207 K/mm3 (142-424); Red Blood Count 4.47 M/mm3 (4.20-5.40); Red Cell Distribution Width 12.7 % (11.5-17.5); White Blood Count 8.3 K/mm3 (4.8-10.8)
[2022-06-15 06:48] LABS: Hemoglobin 12.1 g/dL (12.2-16.2)
--- NOTE | 2022-06-15 08:29 | P.PN_ITS ---
Subjective Patient reports: feels better and still having pain Exam Data for Last 24 hours Vital signs and Labs for Last 24 Hours: Temp Pulse Resp BP Pulse Ox 98.2 F 76 17 124/61 96 06/15/22 07:49 06/15/22 07:49 06/15/22 07:49 06/15/22 07:49 06/15/22 07:49 Laboratory Results - last 24 hr 06/14/22 13:21: Urine Color Yellow, Urine Appearance Clear, Urine pH 6.5, Ur Specific [place] 1.010, Urine Protein Negative, Urine Glucose (UA) Negative, Urine Ketones Negative, Urine Blood Negative, Urine Nitrate Negative, Urine Bilirubin Negative, Urine Urobilinogen 0.2, Ur Leukocyte Esterase Negative, Urine RBC None, Urine WBC 3-5, Ur Squamous Epith Cells 5-10, Urine Bacteria None 06/14/22 13:30: WBC 13.1 H, RBC 5.17, Hgb 14.4, Hct 44.0, MCV 85.1, MCH 27.9, MCHC 32.7, RDW 13.4, Plt Count 282, MPV 7.7, Neut % (Auto) 86.3 H, Lymph % (Auto) 8.2 L, [place] % (Auto) 3.8, Eos % (Auto) 1.3, Baso % (Auto) 0.4, Neut # (Auto) 11.3 H, Lymph # (Auto) 1.1, [place] # (Auto) 0.5, Eos # (Auto) 0.2, Baso # (Auto) 0.1, Total Counted 100, Neutrophils % (Manual) 82 H, Lymphocytes % (Manual) 13, Monocytes % (Manual) 5, Platelet Estimate Normal, RBC Morphology Normal 06/14/22 13:30: Sodium 137, Potassium 4.2, Chloride 102, Carbon Dioxide 27, Anion Gap 12.2, BUN 19 H, Creatinine 0.80, Estimated Creat Clear 53, Estimated GFR 73, Est GFR ( Amer) 88, Glucose 100, Calcium 9.0, Total Bilirubin 0.6, AST 32, ALT 27, Alkaline Phosphatase 143 H, Total Protein 7.6, Albumin 4.2, Globulin 3.4 H, Albumin/Globulin Ratio 1.2, Amylase 62, Lipase 197 06/14/22 13:30: SARS-CoV-2 (PCR) Not detected, Influenza A Untype (PCR) Not detected, Influenza Type B (PCR) Not detected 06/15/22 05:46: WBC 8.3 D, RBC 4.47, Hgb 12.1 L D, Hct 38.7, MCV 86.7, MCH 27.2, MCHC 31.4 L, RDW 12.7, Plt Count 207 D, MPV 7.3 L, Neut % (Auto) 77.9, Lymph % (Auto) 13.1, [place] % (Auto) 5.9, Eos % (Auto) 2.8, Baso % (Auto) 0.4, Neut # (Auto) 6.5, Lymph # (Auto) 1.1, [place] # (Auto) 0.5, Eos # (Auto) 0.2, Baso # (Auto) 0.0 06/15/22 05:46: Sodium 140, Potassium 3.7, Chloride 108 H, Carbon Dioxide 25, Anion Gap 10.7, BUN 14 D, Creatinine 0.80, Estimated Creat Clear 53, Estimated GFR 73, Est GFR ( Amer) 88, Glucose 99, Calcium 8.0 L, Magnesium 2.1, Total Bilirubin 0.8, AST 28, ALT 21, Alkaline Phosphatase 116, Total Protein 6.3, Albumin 3.4 L D, Globulin 2.9, Albumin/Globulin Ratio 1.2 I & O for Last 24 hours: Intake & Output 06/12/22 06/13/22 06/14/22 06/15/22 11:59 11:59 11:59 11:59 Intake Total 2627 / 2627 Output Total 300 / 300 Balance 2327 / 2327 Weight 252 lb 4 oz Constitutional Constitutional: no acute distress *Routine Respiratory Exam Respiratory: Absent respiratory distress *Routine Cardiovascular Exam Cardiovascular: Absent tachycardia *Routine Abdominal Exam Abdominal: Present soft and tenderness Progress Note: A&P Assessment and plan (1) Diverticulitis large intestine: Status: Acute Assessment and plan: Clinically improving on antibiotics. Continue current therapy for now. Likely transition to PO antibiotics soon. Full liquid diet ordered. (2) Hypothyroid: Status: Acute (3) Hypertension: Status: Acute (4) Anxiety and depression: Status: Acute
--- NOTE | 2022-06-15 15:03 | EXP.PN ---
Subjective *Date: 06/15/22 *Time: 15:03 Interval history: Patient reports feeling better today, she still does not have much of an appetite and is eating very little of her clear liquid diet. Abdominal pain improved. Exam Data for Last 24 hours Vital signs and Labs for Last 24 Hours: Temp Pulse Resp BP Pulse Ox 98.1 F 72 17 118/73 97 06/15/22 11:12 06/15/22 11:12 06/15/22 11:12 06/15/22 11:12 06/15/22 11:12 Laboratory Results - last 24 hr 06/15/22 05:46: WBC 8.3 D, RBC 4.47, Hgb 12.1 L D, Hct 38.7, MCV 86.7, MCH 27.2, MCHC 31.4 L, RDW 12.7, Plt Count 207 D, MPV 7.3 L, Neut % (Auto) 77.9, Lymph % (Auto) 13.1, [place] % (Auto) 5.9, Eos % (Auto) 2.8, Baso % (Auto) 0.4, Neut # (Auto) 6.5, Lymph # (Auto) 1.1, [place] # (Auto) 0.5, Eos # (Auto) 0.2, Baso # (Auto) 0.0 06/15/22 05:46: Sodium 140, Potassium 3.7, Chloride 108 H, Carbon Dioxide 25, Anion Gap 10.7, BUN 14 D, Creatinine 0.80, Estimated Creat Clear 53, Estimated GFR 73, Est GFR ( Amer) 88, Glucose 99, Calcium 8.0 L, Magnesium 2.1, Total Bilirubin 0.8, AST 28, ALT 21, Alkaline Phosphatase 116, Total Protein 6.3, Albumin 3.4 L D, Globulin 2.9, Albumin/Globulin Ratio 1.2 I & O for Last 24 hours: Intake & Output 06/12/22 06/13/22 06/14/22 06/15/22 23:59 23:59 23:59 23:59 Intake Total 600 / 600 2447 / 2447 Output Total 300 / 300 0 / 0 Balance 300 / 300 2447 / 2447 Weight 114.419 kg 114.4 kg Constitutional Constitutional: no acute distress and cooperative *Routine HEENT Exam Head: Present normocephalic and atraumatic Eye: Present EOMI and PERRL ENT: Present mucous membranes moist and oropharynx clear *Routine Neck Exam Neck: Present supple and full ROM *Routine Respiratory Exam Respiratory: Present CTA bilaterally; Absent accessory muscle use or respiratory distress *Routine Cardiovascular Exam Cardiovascular: Present RRR, Normal S1 and Normal S2; Absent murmur *Routine Abdominal Exam Abdominal: Present soft, normoactive bowel sounds and tenderness (diffusely but better than yesterday ); Absent distended, rebound or guarding *Routine Extremities Exam Extremities: Present full ROM, pulses intact and normal capillary refill; Absent edema or tenderness *Routine Neurological Exam Neurological: Present alert, oriented X3, CN II-XII intact, moving all extremities, normal tone and normal speech; Absent sensory deficit or motor deficit Routine Psychiatric Exam Psychiatric: Present normal affect, normal thought process, cooperative, good insight and good judgment Assessment and Plan *Assessment and plan (1) Diverticulitis of colon with perforation: Status: Acute Category: Medical Code(s): K57.20 - Diverticulitis of large intestine with perforation and abscess without bleeding (2) Hypothyroid: Status: Acute Category: Medical Code(s): E03.9 - Hypothyroidism, unspecified (3) Hypertension: Status: Acute Category: Medical Code(s): I10 - Essential (primary) hypertension (4) Anxiety and depression: Status: Acute Category: Medical Code(s): F41.9 - Anxiety disorder, unspecified; F32.A - Depression, unspecified Plan Patient is a pleasant 61-year-old female with past medical history of hypertension, hypothyroidism, and anxiety who is admitted to the hospital for diverticulitis with micro perforation of the colon. Surgery was consulted in the ER and Dr. Weinstein does not see an immediate need for surgical intervention. - Continue Zosyn 4.5 mg every 6 hours, transition to Augmentin perhaps tomorrow. - Surgery following and they agree pt seems to be improving with non-surgical intervention. - Continue home meds including irbesartan 37.5 mg PO qd (for losartan 25 mg PO qd) (BP well controlled), levothyroxine, fluoxetine, and BuSpar. Will hold her home meds of Saxenda and liothyronine
[2022-06-16 04:00] VITALS: BP 159/57; PULSE 88; RESP 18; TEMP 37.2; O2SAT 96
[2022-06-16 04:57] VITALS: BMI 42.2
[2022-06-16 06:57] LABS: Basophils % 0.4 % (0.1-2.0); Eosinophils # 0.3 K/mm3 (0.0-0.4); Eosinophils % 3.2 % (0.1-12.0); Hemoglobin 12.5 g/dL (12.2-16.2); Lymphocytes # 1.1 K/mm3 (0.7-4.5); Lymphocytes % 11.2 % (10-50); Mean Corpuscular HGB Conc 32.8 g/dL (31.8-35.4); Mean Corpuscular Hemoglobin 27.4 pg (27.0-31.2); Mean Corpuscular Volume 83.6 fl (81-99); Mean Platelet Volume 7.9 fl (7.4-10.4); Monocytes # 0.6 K/mm3 (0.1-1.0); Monocytes % 5.9 % (1.7-9.3); Neutrophils # 7.7 K/mm3 (1.8-7.8); Neutrophils % 79.3 % (37.0-80.0); Platelet Count 229 K/mm3 (142-424); Red Blood Count 4.55 M/mm3 (4.20-5.40); Red Cell Distribution Width 13.2 % (11.5-17.5); White Blood Count 9.7 K/mm3 (4.8-10.8)
--- NOTE | 2022-06-16 07:27 | EXP.SURG.PN ---
Subjective Narrative: Patient states she feels terrible . She has persistent pain with exacerbations produced when eating full liquids. Exam Data for Last 24 hours Vital signs and Labs for Last 24 Hours: Temp Pulse Resp BP Pulse Ox 98.9 F 88 18 159/57 H 96 06/16/22 04:00 06/16/22 04:00 06/16/22 04:00 06/16/22 04:00 06/16/22 04:00 Laboratory Results - last 24 hr 06/16/22 05:53: WBC 9.7, RBC 4.55, Hgb 12.5, Hct 38.0, MCV 83.6, MCH 27.4, MCHC 32.8, RDW 13.2, Plt Count 229, MPV 7.9, Neut % (Auto) 79.3, Lymph % (Auto) 11.2, [place] % (Auto) 5.9, Eos % (Auto) 3.2, Baso % (Auto) 0.4, Neut # (Auto) 7.7, Lymph # (Auto) 1.1, [place] # (Auto) 0.6, Eos # (Auto) 0.3, Baso # (Auto) 0.0 I & O for Last 24 hours: Intake & Output 06/13/22 06/14/22 06/15/22 06/16/22 11:59 11:59 11:59 11:59 Intake Total 2627 / 2627 1794 / 1794 Output Total 300 / 300 0 / 0 Balance 2327 / 2327 1794 / 1794 Weight 252 lb 3.341 oz 253 lb 8.505 oz *Routine Abdominal Exam Abdominal: Present soft and tenderness Progress Note: A&P Assessment and plan (1) Diverticulitis of colon with perforation: Status: Acute Assessment and plan: Will switch to Invanz. Repeat CT scan with IV and ORAL contrast. May need surgical intervention. (2) Hypothyroid: Status: Acute (3) Hypertension: Status: Acute (4) Anxiety and depression: Status: Acute
[2022-06-16 07:50] LABS: Chloride 107 mmol/L (98-107); Sodium 140 mmol/L (136-145)
[2022-06-16 07:53] LABS: Alanine Aminotransferase 28 U/L (12-78); Albumin Level 3.4 g/dl (3.5-5.0); Alkaline Phosphatase 143 U/L (38-126); Aspartate Amino Transferase 35 U/L (14-36); Bilirubin,Total 0.5 mg/dl (0.2-1.3); Blood Urea Nitrogen 6 mg/dl (7-17); Carbon Dioxide 23 mmol/L (22.0-30.0); Creatinine Clearance Estimated 51 mL/min (50-200); Estimated Glomerular Filt Rate 102 ml/min (>60); GFR (African American) 123 ML/MIN (>60)
[2022-06-16 07:54] LABS: Albumin/Globulin Ratio 1.1 (1.1-1.8); Anion Gap 13.5 mEq/L (5-15); Calcium 7.9 mg/dl (8.4-10.2); Glucose 88 mg/dl (74-100); Potassium 3.5 mmoL/L (3.5-5.1); Total Protein,Serum 6.4 g/dl (6.3-8.2)
[2022-06-16 08:00] VITALS: BP 121/74; PULSE 87; RESP 17; TEMP 36.9; O2SAT 95
--- NOTE | 2022-06-16 08:01 | PC.NURSE ---
Shift summary: Pt has c/o lower abdominal pain 1x t/o shift. Toradol admin per mar with favorable results. Pt able to ambulate to BR independently. Call light within reach.
--- NOTE | 2022-06-16 10:00 | CT_ITS ---
FINAL REPORT TECHNIQUE: After the administration of oral and intravenous contrast, axial images were obtained through the abdomen and pelvis by computed tomography. The study was performed with techniques to keep radiation dose as low as reasonably achievable, (ALARA). Individual dose reduction techniques using automated exposure control or adjustment of mA and/or kV according to the patient's size were employed. CLINICAL HISTORY: ABDOMINAL PAIN, DIVERTICULITIS COMPARISON: June 14, 2022 FINDINGS: Abdomen: Calcified granulomas in the lung bases. The liver parenchyma is homogeneous. The gallbladder is surgically absent. Calcified granulomas in the spleen. The pancreas, adrenals and kidneys appear unremarkable. The aorta is normal in caliber. There is no free fluid or adenopathy. Pelvis: The appendix is not identified. Abnormal mucosal thickening throughout the proximal sigmoid colon. Extensive sigmoid diverticulosis. Persistent extraluminal air seen on image 83 of series 2. Uterus is not identified and probably surgically absent. Soft tissue density is again seen in the left hemipelvis favoring the left ovary. The urinary bladder is unremarkable. There is no free fluid or adenopathy. IMPRESSION: Extensive mucosal edema throughout the proximal sigmoid colon with extensive sigmoid diverticulosis. Persistent extraluminal air. Reviewed, Interpreted and Dictated by Tim Gallardo MD Transcribed by Wyatt Saba Authenticated and [facility]
[2022-06-16 11:07] VITALS: BP 131/72; PULSE 73; RESP 17; TEMP 37.1; O2SAT 98
--- NOTE | 2022-06-16 11:51 | EXP.SURG.PN ---
Subjective Narrative: Patient feels much better now than several hours ago. Her abdominal pain is improved. She has been switched to Invanz. I did add some Toradol. CT scan reveals no worsening with findings consistent with uncomplicated acute diverticulitis. Exam Data for Last 24 hours Vital signs and Labs for Last 24 Hours: Temp Pulse Resp BP Pulse Ox 98.7 F 73 17 131/72 98 06/16/22 11:07 06/16/22 11:07 06/16/22 11:07 06/16/22 11:07 06/16/22 11:07 Laboratory Results - last 24 hr 06/16/22 05:53: WBC 9.7, RBC 4.55, Hgb 12.5, Hct 38.0, MCV 83.6, MCH 27.4, MCHC 32.8, RDW 13.2, Plt Count 229, MPV 7.9, Neut % (Auto) 79.3, Lymph % (Auto) 11.2, [place] % (Auto) 5.9, Eos % (Auto) 3.2, Baso % (Auto) 0.4, Neut # (Auto) 7.7, Lymph # (Auto) 1.1, [place] # (Auto) 0.6, Eos # (Auto) 0.3, Baso # (Auto) 0.0 06/16/22 05:53: Sodium 140, Potassium 3.5, Chloride 107, Carbon Dioxide 23, Anion Gap 13.5, BUN 6 L D, Creatinine 0.60 D, Estimated Creat Clear 51, Estimated GFR 102, Est GFR ( Amer) 123 D, Glucose 88, Calcium 7.9 L, Total Bilirubin 0.5, AST 35, ALT 28 D, Alkaline Phosphatase 143 H, Total Protein 6.4, Albumin 3.4 L, Globulin 3.0, Albumin/Globulin Ratio 1.1 I & O for Last 24 hours: Intake & Output 06/13/22 06/14/22 06/15/22 06/16/22 11:59 11:59 11:59 11:59 Intake Total 2627 / 2627 4208 / 4208 Output Total 300 / 300 0 / 0 Balance 2327 / 2327 4208 / 4208 Weight 252 lb 3.341 oz 253 lb 8.505 oz Progress Note: A&P Assessment and plan (1) Diverticulitis of colon with perforation: Status: Acute Assessment and plan: Continue Invanz. I will limit her to a clear liquid diet. She may be a candidate ultimately for PICC line and outpatient Invanz for complete course. (2) Hypothyroid: Status: Acute (3) Hypertension: Status: Acute (4) Anxiety and depression: Status: Acute
--- NOTE | 2022-06-16 14:18 | EXP.PN ---
Subjective *Date: 06/16/22 *Time: 14:18 Interval history: Patient reports she is feeling a little better on midmorning rounds. She does get some abdominal pain with eating. She had a bowel movement yesterday that she describes as soft but not bloody or dark and tarry. Abdominal pain has improved although is still present Exam Data for Last 24 hours Vital signs and Labs for Last 24 Hours: Temp Pulse Resp BP Pulse Ox 98.7 F 73 17 131/72 98 06/16/22 11:07 06/16/22 11:07 06/16/22 11:07 06/16/22 11:07 06/16/22 11:07 Laboratory Results - last 24 hr 06/16/22 05:53: WBC 9.7, RBC 4.55, Hgb 12.5, Hct 38.0, MCV 83.6, MCH 27.4, MCHC 32.8, RDW 13.2, Plt Count 229, MPV 7.9, Neut % (Auto) 79.3, Lymph % (Auto) 11.2, [place] % (Auto) 5.9, Eos % (Auto) 3.2, Baso % (Auto) 0.4, Neut # (Auto) 7.7, Lymph # (Auto) 1.1, [place] # (Auto) 0.6, Eos # (Auto) 0.3, Baso # (Auto) 0.0 06/16/22 05:53: Sodium 140, Potassium 3.5, Chloride 107, Carbon Dioxide 23, Anion Gap 13.5, BUN 6 L D, Creatinine 0.60 D, Estimated Creat Clear 51, Estimated GFR 102, Est GFR ( Amer) 123 D, Glucose 88, Calcium 7.9 L, Total Bilirubin 0.5, AST 35, ALT 28 D, Alkaline Phosphatase 143 H, Total Protein 6.4, Albumin 3.4 L, Globulin 3.0, Albumin/Globulin Ratio 1.1 I & O for Last 24 hours: Intake & Output 06/13/22 06/14/22 06/15/22 06/16/22 23:59 23:59 23:59 23:59 Intake Total 600 / 600 3821 / 3821 2414 / 2414 Output Total 300 / 300 0 / 0 0 / 0 Balance 300 / 300 3821 / 3821 241 / 2414 Weight 114.419 kg 114.4 kg 115 kg Constitutional Constitutional: no acute distress and cooperative *Routine HEENT Exam Head: Present normocephalic and atraumatic Eye: Present EOMI and PERRL ENT: Present mucous membranes moist and oropharynx clear *Routine Neck Exam Neck: Present supple and full ROM *Routine Respiratory Exam Respiratory: Present CTA bilaterally; Absent accessory muscle use or respiratory distress *Routine Cardiovascular Exam Cardiovascular: Present RRR, Normal S1 and Normal S2; Absent murmur *Routine Abdominal Exam Abdominal: Present soft, normoactive bowel sounds and tenderness (diffusely but again better than yesterday ); Absent distended, rebound or guarding *Routine Extremities Exam Extremities: Present full ROM, pulses intact and normal capillary refill; Absent edema or tenderness *Routine Neurological Exam Neurological: Present alert, oriented X3, CN II-XII intact, moving all extremities, normal tone and normal speech; Absent sensory deficit or motor deficit Routine Psychiatric Exam Psychiatric: Present normal affect, normal thought process, cooperative, good insight and good judgment Assessment and Plan *Assessment and plan (1) Diverticulitis of colon with perforation: Status: Acute Category: Medical Code(s): K57.20 - Diverticulitis of large intestine with perforation and abscess without bleeding (2) Hypothyroid: Status: Acute Category: Medical Code(s): E03.9 - Hypothyroidism, unspecified (3) Hypertension: Status: Acute Category: Medical Code(s): I10 - Essential (primary) hypertension (4) Anxiety and depression: Status: Acute Category: Medical Code(s): F41.9 - Anxiety disorder, unspecified; F32.A - Depression, unspecified Plan Patient is a pleasant 61-year-old female with past medical history of hypertension, hypothyroidism, and anxiety who is admitted to the hospital for diverticulitis with micro perforation of the colon. - Surgery is consulted and following, appreciate Dr. Weinstein's recommendations. - Zosyn 4.5 mg every 6 hours is switched to ertapenam 1g IV qd. - Repeat CT Ab/pelvis x/contrast today is stable as compared to - Continue home meds including irbesartan 37.5 mg PO qd (for losartan 25 mg PO qd) (BP well controlled), levothyroxine, fluoxetine, and BuSpar. Will hold her home meds of Saxenda and liothyronine
[2022-06-16 15:19] VITALS: BP 147/68; PULSE 76; RESP 17; TEMP 37.3; O2SAT 97
--- NOTE | 2022-06-16 18:43 | PC.NURSE ---
aox4, did c/o abd pain this am that was relieved by toradol iv. has ambulated to restroom independently.
[2022-06-16 20:00] VITALS: BP 155/95; PULSE 84; RESP 20; TEMP 37.2; O2SAT 97
[2022-06-17] VITALS: BP 135/68; PULSE 86; RESP 18; TEMP 37.1; O2SAT 99
[2022-06-17 04:00] VITALS: BP 127/72; PULSE 76; RESP 20; TEMP 37; O2SAT 95
[2022-06-17 05:00] VITALS: BMI 42.9
--- NOTE | 2022-06-17 05:32 | PC.NURSE ---
NO ACUTE CHANGES THIS SHIFT. PT HAS RESTED WELL. LUNG SOUNDS CLEAR, TOLERATING ROOM AIR WELL. AMBULATING INDEPENDENTLY TO THE BATHROOM. HAS STATED THAT HER ABD PAIN HAS BEEN ABOUT A 4/10 THIS SHIFT. RECEIVING [facility] PAIN MEDS. NO C/O N/V/D. TOLERATING SMALL AMOUNTS OF CLEAR LIQUIDS. VSS. CALL TABARES WITHIN REACH.
[2022-06-17 06:37] LABS: Basophils % 0.3 % (0.1-2.0); Eosinophils # 0.4 K/mm3 (0.0-0.4); Eosinophils % 4.8 % (0.1-12.0); Hemoglobin 12.5 g/dL (12.2-16.2); Lymphocytes # 1.2 K/mm3 (0.7-4.5); Lymphocytes % 14.9 % (10-50); Mean Corpuscular HGB Conc 32.8 g/dL (31.8-35.4); Mean Corpuscular Hemoglobin 27.3 pg (27.0-31.2); Mean Corpuscular Volume 83.2 fl (81-99); Mean Platelet Volume 7.7 fl (7.4-10.4); Monocytes # 0.4 K/mm3 (0.1-1.0); Monocytes % 5.5 % (1.7-9.3); Neutrophils # 5.9 K/mm3 (1.8-7.8); Neutrophils % 74.5 % (37.0-80.0); Platelet Count 245 K/mm3 (142-424); Red Blood Count 4.56 M/mm3 (4.20-5.40); Red Cell Distribution Width 13.2 % (11.5-17.5); White Blood Count 7.9 K/mm3 (4.8-10.8)
[2022-06-17 06:40] LABS: Chloride 107 mmol/L (98-107)
[2022-06-17 06:41] LABS: Potassium 3.4 mmoL/L (3.5-5.1); Sodium 140 mmol/L (136-145)
[2022-06-17 06:43] LABS: Alanine Aminotransferase 27 U/L (12-78); Aspartate Amino Transferase 32 U/L (14-36); Bilirubin,Total 0.5 mg/dl (0.2-1.3); Blood Urea Nitrogen 4 mg/dl (7-17); Creatinine Clearance Estimated 51 mL/min (50-200); Estimated Glomerular Filt Rate 102 ml/min (>60); GFR (African American) 123 ML/MIN (>60)
[2022-06-17 06:44] LABS: Albumin Level 3.4 g/dl (3.5-5.0); Albumin/Globulin Ratio 1.1 (1.1-1.8); Alkaline Phosphatase 136 U/L (38-126); Anion Gap 14.4 mEq/L (5-15); Carbon Dioxide 22 mmol/L (22.0-30.0); Globulin 3.1 g/dL (1.3-3.2); Glucose 78 mg/dl (74-100); Total Protein,Serum 6.5 g/dl (6.3-8.2)
[2022-06-17 08:00] VITALS: O2SAT 95
--- NOTE | 2022-06-17 08:10 | XR_ITS ---
FINAL REPORT CLINICAL HISTORY: Confirm PICC line placement FINDINGS: SINGLE-VIEW CHEST The heart size is normal. The mediastinum is normal. The lungs are clear. Left PICC line tip terminates in the mid SVC. There is postoperative change in the left shoulder. There is no pneumothorax. IMPRESSION: Left PICC line tip terminates in the mid SVC. Reviewed, Interpreted and Dictated by Young Leroy III, MD Transcribed by Viola West Authenticated and [facility]
--- NOTE | 2022-06-17 08:11 | P.PN_ITS ---
Subjective Patient reports: feels better and tolerating liquids well Exam Data for Last 24 hours Vital signs and Labs for Last 24 Hours: Temp Pulse Resp BP Pulse Ox 98.6 F 76 20 127/72 95 06/17/22 04:00 06/17/22 04:00 06/17/22 04:00 06/17/22 04:00 06/17/22 04:00 Laboratory Results - last 24 hr 06/17/22 05:58: WBC 7.9, RBC 4.56, Hgb 12.5, Hct 38.0, MCV 83.2, MCH 27.3, MCHC 32.8, RDW 13.2, Plt Count 245, MPV 7.7, Neut % (Auto) 74.5, Lymph % (Auto) 14.9, [place] % (Auto) 5.5, Eos % (Auto) 4.8, Baso % (Auto) 0.3, Neut # (Auto) 5.9, Lymph # (Auto) 1.2, [place] # (Auto) 0.4, Eos # (Auto) 0.4, Baso # (Auto) 0.0 06/17/22 05:58: Sodium 140, Potassium 3.4 L, Chloride 107, Carbon Dioxide 22, Anion Gap 14.4, BUN 4 L D, Creatinine 0.60, Estimated Creat Clear 51, Estimated GFR 102, Est GFR ( Amer) 123, Glucose 78, Calcium 8.0 L, Total Bilirubin 0.5, AST 32, ALT 27, Alkaline Phosphatase 136 H, Total Protein 6.5, Albumin 3.4 L, Globulin 3.1, Albumin/Globulin Ratio 1.1 I & O for Last 24 hours: Intake & Output 06/14/22 06/15/22 06/16/22 06/17/22 11:59 11:59 11:59 11:59 Intake Total 2627 / 2627 4208 / 4208 1310 / 1310 Output Total 300 / 300 0 / 0 500 / 500 Balance 2327 / 2327 4208 / 4208 810 / 810 Weight 252 lb 3.341 oz 253 lb 8.505 oz 257 lb 12.8 oz Constitutional Constitutional: no acute distress *Routine Respiratory Exam Respiratory: Absent respiratory distress *Routine Cardiovascular Exam Cardiovascular: Absent tachycardia *Routine Abdominal Exam Abdominal: Present soft and tenderness Progress Note: A&P Assessment and plan (1) Diverticulitis large intestine: Status: Acute Assessment and plan: Continuing to improve after episodic increased pain yesterday morning. She is currently on Invanz (changed from Zosyn yesterday). PICC line ordered for continuation of Invanz in the outpatient setting Full liquid diet ordered
--- NOTE | 2022-06-17 09:04 | SW/DCPLANNER ---
This patient will have a PICC line placed today and will need 8 additional days of IV Invanz. CM did have a discussion with patient regarding discharge plans: patient prefers to return to [facility] [place] outpatient setting for 8 days of IV Invanz. Patient will discharge home later today. Patient has no further needs at this time.
[2022-06-17 10:00] VITALS: BP 140/86; PULSE 74; RESP 18; TEMP 36.7; O2SAT 97
[2022-06-17 12:00] VITALS: BP 156/82; PULSE 99; RESP 16; TEMP 36.8; O2SAT 98
--- NOTE | 2022-06-17 12:17 | EXP.DC.SUM ---
General Admission date:: 06/14/22 Discharge date: 06/17/22 HPI HPI HPI: Patient is a 61-year-old female from [place]. She had presented to the emergency department with complaints of lower abdominal pain beginning earlier today with radiation into her back. She did have some apparent fevers at home and had treated prior to arrival with Tylenol. Pain initiated in the left lower quadrant and then became more diffuse with radiation to the back. Pt has h/o cholecystectomy, appendectomy, and hysterectomy. She does still have her ovaries. Evaluation in the emergency department revealed mild leukocytosis of 13.1. She underwent CT scan which revealed findings of sigmoid diverticulosis with adjacent stranding which may represent mild acute diverticulitis . However, there was also a microperforation in this region . There was also noted to be heterogeneous soft tissue inferior to the findings of inflammation which was felt to be possibly left ovary or possibly inflamed soft tissue according to the radiologist reading. Patient does state that she had a colonoscopy about 5 years ago. Exact details are unknown. - Pt reports fever of 102 at home and chills, ROS is otherwise negative. Hospital Course Hospital Course Hospital Course: Patient was admitted late afternoon on 06/14 for acute sigmoid diverticulitis with microperforation. She was initially placed on Zosyn 4.5 g every 6 hours, however she seem to be improving gradually, and therefore a repeat CT abdomen and pelvis with contrast was ordered the morning of 06/16 which was essentially unchanged. Patient was switched from Zosyn to IV or ertapenem and today she feels much better. She tolerated a full liquid diet and mashed potatoes for lunch without any difficulty. Patient will be discharged home today and will continue ertapenem 1 g IV daily for 8 days to complete a 10-day course. Patient will do this by coming to the hospital daily in the morning to receive an outpatient IV infusion. Exam Data for Last 24 hours Vital signs and Labs for Last 24 Hours: Temp Pulse Resp BP Pulse Ox 98.1 F 74 18 140/86 97 06/17/22 10:00 06/17/22 10:00 06/17/22 10:00 06/17/22 10:00 06/17/22 10:00 Laboratory Results - last 24 hr 06/17/22 05:58: WBC 7.9, RBC 4.56, Hgb 12.5, Hct 38.0, MCV 83.2, MCH 27.3, MCHC 32.8, RDW 13.2, Plt Count 245, MPV 7.7, Neut % (Auto) 74.5, Lymph % (Auto) 14.9, [place] % (Auto) 5.5, Eos % (Auto) 4.8, Baso % (Auto) 0.3, Neut # (Auto) 5.9, Lymph # (Auto) 1.2, [place] # (Auto) 0.4, Eos # (Auto) 0.4, Baso # (Auto) 0.0 06/17/22 05:58: Sodium 140, Potassium 3.4 L, Chloride 107, Carbon Dioxide 22, Anion Gap 14.4, BUN 4 L D, Creatinine 0.60, Estimated Creat Clear 51, Estimated GFR 102, Est GFR ( Amer) 123, Glucose 78, Calcium 8.0 L, Total Bilirubin 0.5, AST 32, ALT 27, Alkaline Phosphatase 136 H, Total Protein 6.5, Albumin 3.4 L, Globulin 3.1, Albumin/Globulin Ratio 1.1 I & O for Last 24 hours: Intake & Output 06/14/22 06/15/22 06/16/22 06/17/22 23:59 23:59 23:59 23:59 Intake Total 600 / 600 3821 / 3821 3724 / 3724 Output Total 300 / 300 0 / 0 0 / 250 500 / 500 Balance 300 / 300 3821 / 3821 3724 / 3474 -500 / -500 Weight 114.419 kg 114.4 kg 115 kg 116.936 kg Constitutional Constitutional: no acute distress and cooperative *Routine HEENT Exam Head: Present normocephalic and atraumatic Eye: Present EOMI and PERRL ENT: Present mucous membranes moist and oropharynx clear *Routine Neck Exam Neck: Present supple and full ROM *Routine Respiratory Exam Respiratory: Present CTA bilaterally; Absent accessory muscle use or respiratory distress *Routine Cardiovascular Exam Cardiovascular: Present RRR, Normal S1 and Normal S2; Absent murmur *Routine Abdominal Exam Abdominal: Present soft and normoactive bowel sounds; Absent tenderness, distended, rebound or guarding *Routine Extremities Exam Extremities: Present full ROM, pulses intact and normal capillary refill; Absent edema
--- NOTE | 2022-06-20 14:28 | CARE MANAGER ---
Spoke with patient for post-discharge phone interview. Patient states that she is doing well and has no issues since discharge, she is returning for IV antibitocs to [facility].
== END 2022-06-17 14:02 | disposition home or self-care (01) | DRG 392 ==
LOC: ER 15:30 → 2ND 16:29
PROVIDERS: Admitting Provider Emergency Medicine; Emergency Provider Emergency Medicine; PCP Nurse Practitioner Family; Visit Provider Emergency Medicine
DX: K57.20 Diverticulitis of large intestine with perforation and abscess without bleeding (principal); F41.9 Anxiety disorder, unspecified; F32.A Depression, unspecified; E03.9 Hypothyroidism, unspecified; I10 Essential (primary) hypertension
CPT/HCPCS: 36410; 36415; 36569; 71045; 74177; 80053; 81001; 82150; 83690; 83735; 85007; 85025; 99285; C1751; C9803; J1335; J2543; Q9967; U0003; U0005

== ENCOUNTER → 2022-06-18 08:05 | Outpatient (CLI) | payer BC, OTHER, SELFPAY | PROVIDERS: PCP Nurse Practitioner Family; Visit Provider Internal Medicine Adolescent Medicine | DX: K57.32 Diverticulitis of large intestine without perforation or abscess without bleeding (principal) | CPT/HCPCS: 96365; J1335 ==

== ENCOUNTER → 2022-06-19 08:13 | Outpatient (CLI) | payer BC, OTHER, SELFPAY ==
[2022-06-19 09:15] VITALS: BP 123/74; PULSE 69; RESP 18; TEMP 37; O2SAT 94
[2022-06-19 09:55] VITALS: BP 123/74; PULSE 69; RESP 18; TEMP 37; O2SAT 94
== END ==
PROVIDERS: PCP Nurse Practitioner Family; Visit Provider Internal Medicine Adolescent Medicine
DX: K57.20 Diverticulitis of large intestine with perforation and abscess without bleeding (principal)
CPT/HCPCS: 96365; J1335

== ENCOUNTER 2022-06-20 07:48 | Outpatient (CLI) | payer BC, SELFPAY ==
[2022-06-20 08:22] VITALS: BP 115/66; PULSE 75; RESP 18; O2SAT 95
[2022-06-20 09:10] VITALS: BP 123/75; PULSE 68; RESP 18
== END 2022-06-20 09:10 | disposition home or self-care (01) ==
LOC: INF 07:49
PROVIDERS: PCP Nurse Practitioner Family; Visit Provider Internal Medicine Adolescent Medicine
DX: K57.20 Diverticulitis of large intestine with perforation and abscess without bleeding (principal)
CPT/HCPCS: 96365

== ENCOUNTER → 2022-06-21 07:41 | Outpatient (CLI) | payer BC, OTHER, SELFPAY ==
[2022-06-21 08:23] VITALS: BP 102/52; PULSE 74; RESP 18; O2SAT 93
[2022-06-21 09:02] VITALS: BP 115/66; PULSE 61; RESP 18
== END ==
PROVIDERS: PCP Nurse Practitioner Family; Visit Provider Internal Medicine Adolescent Medicine
DX: K57.20 Diverticulitis of large intestine with perforation and abscess without bleeding (principal)
CPT/HCPCS: 96365; J1335

== ENCOUNTER 2022-06-22 07:46 | Outpatient (CLI) | payer BC, OTHER, SELFPAY ==
[2022-06-22 08:17] VITALS: BP 116/63; PULSE 56; RESP 18; O2SAT 99
[2022-06-22 09:10] VITALS: BP 120/76; PULSE 72; RESP 18; O2SAT 99
== END 2022-06-22 09:10 | disposition home or self-care (01) ==
LOC: INF 07:47
PROVIDERS: PCP Nurse Practitioner Family; Visit Provider Internal Medicine Adolescent Medicine
DX: K57.20 Diverticulitis of large intestine with perforation and abscess without bleeding (principal)
CPT/HCPCS: 96365; J1335

== ENCOUNTER 2022-06-23 07:41 | Outpatient (CLI) | payer BC, OTHER, SELFPAY ==
[2022-06-23 08:54] VITALS: BP 113/59; PULSE 66; RESP 18; TEMP 36.4; O2SAT 96
[2022-06-23 09:40] VITALS: BP 129/81; PULSE 64; RESP 18; O2SAT 97
== END 2022-06-23 09:45 | disposition home or self-care (01) ==
LOC: INF 07:42
PROVIDERS: PCP Nurse Practitioner Family; Visit Provider Internal Medicine Adolescent Medicine
DX: K57.20 Diverticulitis of large intestine with perforation and abscess without bleeding (principal)
CPT/HCPCS: 96365; J1335

== ENCOUNTER 2022-06-24 07:40 | Outpatient (CLI) | payer BC, OTHER, SELFPAY ==
[2022-06-24 08:45] VITALS: BP 130/73; PULSE 81; RESP 18; TEMP 36.3; O2SAT 99
[2022-06-24 08:58] VITALS: BP 135/76; PULSE 72; RESP 18; O2SAT 100
== END 2022-06-24 08:58 | disposition home or self-care (01) ==
LOC: INF 07:41
PROVIDERS: PCP Nurse Practitioner Family; Visit Provider Internal Medicine Adolescent Medicine
DX: K57.20 Diverticulitis of large intestine with perforation and abscess without bleeding (principal); Z45.2 Encounter for adjustment and management of vascular access device
CPT/HCPCS: 96365; J1335

== ENCOUNTER 2022-06-25 08:21 | Outpatient (CLI) | payer BC, OTHER, SELFPAY ==
[2022-06-25 09:25] VITALS: BP 118/67; PULSE 59; RESP 16; TEMP 36.8; O2SAT 93
[2022-06-25 09:30] VITALS: BMI 42.9
== END 2022-06-25 09:51 | disposition home or self-care (01) ==
LOC: INF 08:21
PROVIDERS: PCP Nurse Practitioner Family; Visit Provider Surgery
DX: K57.20 Diverticulitis of large intestine with perforation and abscess without bleeding (principal)
CPT/HCPCS: 96365; J1335

== ENCOUNTER 2022-06-26 08:21 | Outpatient (CLI) | payer BC, OTHER, SELFPAY ==
[2022-06-26 08:28] VITALS: BMI 42.9
== END 2022-06-26 09:28 | disposition home or self-care (01) ==
LOC: INF 08:22
PROVIDERS: PCP Nurse Practitioner Family; Visit Provider Surgery
DX: K57.20 Diverticulitis of large intestine with perforation and abscess without bleeding (principal)
CPT/HCPCS: 96365; J1335

== ENCOUNTER 2022-06-27 07:48 | Outpatient (CLI) | payer BC, OTHER, SELFPAY ==
[2022-06-27 08:17] VITALS: BP 120/76; PULSE 68; RESP 18; O2SAT 99
[2022-06-27 09:03] VITALS: BP 114/74; PULSE 72; RESP 18; O2SAT 100
== END 2022-06-27 09:04 | disposition home or self-care (01) ==
LOC: INF 07:49
PROVIDERS: PCP Nurse Practitioner Family; Visit Provider Surgery
DX: Z45.2 Encounter for adjustment and management of vascular access device (principal); K57.32 Diverticulitis of large intestine without perforation or abscess without bleeding
CPT/HCPCS: 96365; J1335

== ENCOUNTER 2022-06-28 07:54 | Outpatient (CLI) | payer BC, OTHER, SELFPAY ==
[2022-06-28 08:22] VITALS: BP 114/67; PULSE 85; RESP 20; TEMP 36.4; O2SAT 97
[2022-06-28 09:15] VITALS: BP 122/74; PULSE 78; RESP 20; O2SAT 97
== END 2022-06-28 09:20 | disposition home or self-care (01) ==
LOC: INF 07:54
PROVIDERS: PCP Nurse Practitioner Family; Visit Provider Surgery
DX: K57.32 Diverticulitis of large intestine without perforation or abscess without bleeding (principal); Z45.2 Encounter for adjustment and management of vascular access device
CPT/HCPCS: 96365; J1335

== ENCOUNTER 2022-06-29 07:47 | Outpatient (CLI) | payer BC, OTHER, SELFPAY ==
[2022-06-29 08:26] VITALS: BP 97/56; PULSE 66; RESP 18; TEMP 36.3; O2SAT 99
[2022-06-29 09:13] VITALS: BP 111/50; PULSE 68; RESP 18; O2SAT 99
== END 2022-06-29 09:14 | disposition home or self-care (01) ==
LOC: INF 07:48
PROVIDERS: PCP Nurse Practitioner Family; Visit Provider Surgery
DX: K57.32 Diverticulitis of large intestine without perforation or abscess without bleeding (principal); Z48.01 Encounter for change or removal of surgical wound dressing
CPT/HCPCS: 96365; J1335

== ENCOUNTER 2022-06-30 07:49 | Outpatient (CLI) | payer BC, SELFPAY ==
[2022-06-30 08:33] VITALS: BMI 41.2
[2022-06-30 08:55] VITALS: BP 124/80; PULSE 60; RESP 16; TEMP 36.6; O2SAT 97
[2022-06-30 09:07] LABS: Blood Urea Nitrogen 9 mg/dl (7-17); Creatinine Clearance Estimated 53 mL/min (50-200); Estimated Glomerular Filt Rate 73 ml/min (>60); GFR (African American) 88 ML/MIN (>60)
== END 2022-06-30 08:55 | disposition home or self-care (01) ==
LOC: INF 07:51
PROVIDERS: PCP Nurse Practitioner Family; Visit Provider Surgery
DX: K57.32 Diverticulitis of large intestine without perforation or abscess without bleeding (principal); Z45.2 Encounter for adjustment and management of vascular access device
CPT/HCPCS: 36592; 82565; 84520

== ENCOUNTER → 2022-07-01 07:33 | Outpatient (CLI) | payer BC, SELFPAY ==
--- NOTE | 2022-07-01 07:34 | CT_ITS ---
FINAL REPORT TECHNIQUE: After the administration of oral and intravenous contrast, axial images were obtained through the abdomen and pelvis by computed tomography. The study was performed with techniques to keep radiation dose as low as reasonably achievable, (ALARA). Individual dose reduction techniques using automated exposure control or adjustment of mA and/or kV according to the patient's size were employed. CLINICAL HISTORY: diverticulitis COMPARISON: 06/16/2022 FINDINGS: Abdomen: There is mild bibasilar atelectasis. There are several calcified granulomas at the lung bases. The patient is status post cholecystectomy. The liver is normal in size and attenuation. The spleen is unremarkable. The adrenals are normal. The pancreas is unremarkable. The kidneys enhance appropriately. The aorta is normal in caliber. There is no free fluid or adenopathy. Pelvis: The appendix is not identified. There is descending and sigmoid diverticulosis. There has been interval improvement in the inflammatory change in the region of the proximal sigmoid colon. There is a persistent focus of extra luminal air adjacent to the sigmoid colon measuring 22 mm consistent with micro perforation. No new fluid collection is identified to suggest an abscess. The urinary bladder is unremarkable. There is no free fluid or adenopathy. IMPRESSION: Improved diverticulitis. Persistent focus of extra luminal air consistent with micro perforation. Reviewed, Interpreted and Dictated by Young Leroy III, MD Transcribed by Viola West Authenticated and [facility]
== END ==
PROVIDERS: PCP Nurse Practitioner Family; Visit Provider Surgery
DX: K57.32 Diverticulitis of large intestine without perforation or abscess without bleeding (principal)
CPT/HCPCS: 74177; Q9967

== ENCOUNTER 2022-07-07 09:08 | Outpatient (CLI) | payer BC, SELFPAY | END 2022-07-07 09:20 | disposition home or self-care (01) | PROVIDERS: PCP Nurse Practitioner Family; Visit Provider Surgery | DX: K57.32 Diverticulitis of large intestine without perforation or abscess without bleeding (principal); Z45.2 Encounter for adjustment and management of vascular access device | CPT/HCPCS: G0463 ==

== ENCOUNTER 2022-08-05 08:12 | Day surgery (SDC) | payer BC, SELFPAY ==
[2022-08-05 08:49] VITALS: BP 125/63; PULSE 67; RESP 18; TEMP 36.3; O2SAT 94; BMI 39.9
--- NOTE | 2022-08-05 09:22 | EXP.ANES.CKL ---
[facility] Disclaimer: The information contained in this section may have been updated after the patient was seen, as this information can be updated by other users. Medical History COPD (chronic obstructive pulmonary disease) Hypertension Continue losartan 25 mg p.o. daily Hypothyroid Continue levothyroxine Sleep apnea Surgical History History of appendectomy History of cholecystectomy History of colonoscopy History of hysterectomy History of tonsillectomy Family History (Updated 08/05/22 @ 08:48 by Kevin Beach RN) Other Family history of cancer Family history of diabetes mellitus type II Family history of hypertension Social History (Updated 08/05/22 @ 08:48 by Kevin Beach RN) Smoking Status: Never smoker alcohol intake: never substance use type: denies use current occupational status: employed Travel in the last 8 weeks: None [facility] Anesthesia Checklist Patient Identification Patient Identification: Arm Band Structural Data Admitted From: Home Planned Operative Procedure/s: EGD/Colonoscopy Consent for Planned Operative Procedure(s) Verified: Yes Verified Documents: Surgical Consent and History and Physical NPO Status Verified Time NPO: 00:00 Additional verifications Anesthesia Reactions: No Airway Assessment C-Spine Mobility Assessed: Yes TMJ Mobility Assessed: Yes Dentition: Good Dentition Neurological Assessment Level of Consciousness: Awake and Alert Anesthesia Plan Anesthesia Risk discussed: Yes Anesthesia Plan: Verified ASA Class: III Anesthesia Type: MAC
[2022-08-05 09:29] VITALS: O2SAT 94
--- NOTE | 2022-08-05 09:40 | P.PCN_ITS ---
Procedure: Date: 08/05/22 Patient Date of :: 1960 Procedure Performed:: Esophagogastroduodenoscopy with biopsies Indications:: Patient is a 61-year-old female who presents for colonoscopy due to recent hi story of diverticulitis. She is also had postprandial epigastric pain. She has had previous cholecystectomy. Plan was made for upper endoscopy along with colonoscopy. Patient is on meloxicam. At the time of presentation for endoscopy her symptoms have improved. Performing Provider:: Young Weinstein MD Referring Provider:: Karen Darling Sedation:: MAC sedation Procedure:: Patient was taken to endoscopy procedure room. She was positioned in lateral decubitus position. Adequate intravenous sedation was achieved with anesthesia titration of propofol. Olympus endoscope was inserted via the oropharynx. Esophagus was cannulated. There is minor tortuosity to the esophagus but no evidence of any obvious esophagitis. Gastroesophageal junction was encountered at 38 cm. Stomach was cannulated and insufflated. Retroflexion revealed no evidence of any obvious hiatal hernia. There is diffuse moderate gastritis/gastropathy. Gastric antral mucosal biopsies obtained for CLOtest for H. pylori. Pylorus was traversed. Within the duodenal bulb there was moderate duodenitis. Distal duodenum appeared unremarkable. Biopsies were obtained of the duodenitis. Endoscope was withdrawn into the stomach and gastric biopsy was obtained for histopathologic analysis. Endoscope was withdrawn. Findings:: Gastroesophageal junction at 38 cm Moderate diffuse gastritis/gastropathy Moderate duodenitis within the duodenal bulb Recommendations:: May require H2 gisselle or PPI Complications:: None immediate Estimated blood obtained (mL): 2
--- NOTE | 2022-08-05 10:18 | HMH.SCOPE ---
Procedure: Date: 08/05/22 Patient Date of :: 1960 Procedure Performed:: Total colonoscopy with polypectomy using biopsy Indications:: Patient presents for colonoscopy and EGD.? She was admitted with diverticulitis on 06/14/2022.? There was a small focus of extraluminal air.? She was initially placed on Zosyn and seem to be improving but then had developed some acute abdominal pain and was switched to Invanz.? She improved significantly with this and was discharged home on continued IV Invanz.? She has been seen in the office in follow-up and was doing better.? I had her undergo a follow-up CT scan which revealed improved diverticulitis .? But there was a persistent small focus of extraluminal air.? I have been able to obtain her prior colonoscopy which I had actually performed in 2013 which revealed poor colonic preparation.? Patient states that that time she did not begin moving her bowels until she actually presented for the colonoscopy that morning.? She has undergone cholecystectomy which I had performed in the past. When she was seen in the office for second follow-up after her inpatient admission for diverticulitis she had been complaining of some postprandial epigastric pain. Plan was made to proceed with interval colonoscopy as well as EGD. Her postprandial epigastric pain has improved. She underwent aggressive bowel preparation due to prior history. Performing Provider:: Young Weinstein MD Referring Provider:: Karen Darling Sedation:: MAC sedation Procedure:: Patient history was obtained and appropriate physical examination was performed. Patient's medications and allergies were reviewed. Informed consent was obtained after explaining the benefits, alternatives, and risks of the procedure including, but not limited to, bleeding, perforation, missed lesions, and adverse reaction to anesthesia medications. Patient was transported to endoscopy procedure room. Patient was connected to monitoring devices. Throughout the procedure the patient's blood pressure, pulse, and oxygen saturations were monitored continuously. Patient identification and planned procedure were verified by the staff. Patient was positioned in lateral decubitus position. Digital anorectal exam was performed. Variable stiffness Olympus colonoscope was inserted and advanced under direct visualization to the cecum. Adequacy of the colonic preparation was noted. The ileocecal valve and appendiceal orifice were identified. The colonoscope was then slowly withdrawn while carefully examining the color, texture, anatomy, and integrity of the mucosoa circumferentially. Within the rectum retroflexion was performed. Colonoscope was then withdrawn. Impression: She had somewhat of fair preparation mostly of the right colon with some particulate liquid stool and some stool coating the ruiz of the colon. With aggressive irrigation this was able to be cleared. There was a minor possible irregularity of the mucosa in the ascending colon and this was biopsied, likely lymphoid aggregate. There was noted to be moderate diverticular burden in the distal sigmoid colon between 20 and 30 cm. No evidence of any active diverticulitis. In the rectosigmoid region there were several hyperplastic appearing polyps removed with cold biopsy forceps. Retroflexion in the rectum revealed no evidence of any pathologic internal hemorrhoids. Colonoscope was withdrawn. Findings:: Initially fair preparation, good visualization with thorough irrigation and suctioning Hyperplastic appearing rectosigmoid polyps Diverticulosis of distal sigmoid without diverticulitis Recommendations:: Likely repeat colonoscopy 3 to 5 years. Complications:: None immediately apparent Estimated blood obtained (mL): 1
[2022-08-05 10:20] VITALS: BP 106/62; PULSE 72; RESP 16; TEMP 36.2; O2SAT 91
[2022-08-05 10:30] VITALS: BP 123/77; PULSE 64; RESP 18; O2SAT 94
[2022-08-05 10:40] VITALS: BP 120/79; PULSE 56; RESP 18; O2SAT 96
[2022-08-05 10:50] VITALS: BP 122/79; PULSE 53; RESP 18; O2SAT 96
== END 2022-08-05 10:50 | disposition home or self-care (01) ==
PROVIDERS: PCP Nurse Practitioner Family; Visit Provider Surgery
PROC: 0DJ08ZZ Inspection of Upper Intestinal Tract, Via Natural or Artificial Opening Endoscopic (ICD-10-PCS; CPT 43235; principal; 2022-08-05 09:30)
DX: K29.80 Duodenitis without bleeding (principal); K63.5 Polyp of colon; Z12.11 Encounter for screening for malignant neoplasm of colon
CPT/HCPCS: 45380; 43239; 87339; 88305; J2704

== ENCOUNTER 2022-08-11 17:07 | Emergency (ER) | payer BC, SELFPAY ==
[2022-08-11 17:19] VITALS: BP 158/96; PULSE 100; RESP 18; TEMP 37.9; O2SAT 97; BMI 39.9
--- NOTE | 2022-08-11 18:55 | HMH.EDFEV ---
Discharge Plan Disposition Patient Disposition: Home, Self-Care Condition: Good Prescriptions Prescriptions: New benzonatate [benzonatate] 100 mg capsule 100 mg PO TIDP PRN (Reason: Cough) Qty: 30 0RF methylprednisolone 4 mg Tablets,Dose Pack 4 mg PO DIRECTED Qty: 21 0RF No Action sodium,potassium,mag sulfates [Suprep Bowel Prep Kit] 17.5-3.13-1.6 gram recon soln See Rx Instructions PO .COMPLEX Rx Instructions: DILUTE; drink full amount early evening before AND next morning at least 2 hr before procedure; follow w 960 mL water PO levothyroxine 112 mcg tablet 112 mcg PO DAILY Saxenda 3 mg/0.5 mL (18 mg/3 mL) pen injector 0.6 mg SQ DAILY meloxicam 15 mg tablet 15 mg PO DAILY liothyronine 5 mcg tablet 5 mcg PO DAILY buspirone 10 mg tablet 10 mg PO TID losartan 25 mg tablet 25 mg PO DAILY fluoxetine 10 mg capsule 10 mg PO .EVERY OTHER DAY Referrals Follow up/Referrals: Karen Darling [Primary Care Provider] - See instructions Activity Restrictions/Add. Instructions Additional Instructions/Restrictions: Drink plenty of fluids. Take tylenol or ibuprofen for pain or fever. Take the medications as directed. Follow up with your regular doctor. GO TO THE ER FOR ANY WORSENING SYMPTOMS If your abdominal symptoms worsen or continue, please follow up or go to the ER. Clinical Impressions Clinical Impression: Acute viral syndrome, Pharyngitis Stand Alone Forms Stand Alone Forms: Work/School Release Instructions Patient Instructions: DI for Pharyngitis/Tonsillopharyngitis -- Adult, DI for Viral Syndrome Discharge ED Provider: Saqib Cueto Fever HPI General Chief Complaint: Fever Stated Complaint: Vomiting& Diarrhea, Fever Time Seen by Provider: 08/11/22 18:55 Mode of Arrival: Ambulatory Source of Information: Patient Limitations: No Limitations Description of Symptoms (Recalled from ER Triage Doc. by RN): pt states she hasn't felt good since Monday, she vomited on Monday, woke up with a fever this morning, has also had body aches and back pain, states she has been around her grandson that has the flu History of Present Illness HPI Narrative: She states that for the past 2 days she has had fever, chills, body aches, productive cough with yellowish sputum and malaise. Related Data Home Medications Medication Instructions Recorded Confirmed buspirone 10 mg tablet 10 mg PO TID Anxiety 06/14/22 07/07/22 fluoxetine 10 mg capsule 10 mg PO .EVERY OTHER DAY mood 06/14/22 07/07/22 levothyroxine 112 mcg tablet 112 mcg PO DAILY thyroid 06/14/22 07/07/22 liothyronine 5 mcg tablet 5 mcg PO DAILY thyroid 06/14/22 07/07/22 liraglutide (weight loss) 3 mg/0.5 0.6 mg SQ DAILY Weight loss 06/14/22 07/07/22 mL (18 mg/3 mL) subcut pen injector (Saxenda) losartan 25 mg tablet 25 mg PO DAILY High blood pressure 06/14/22 07/07/22 meloxicam 15 mg tablet 15 mg PO DAILY muscle relaxant 06/14/22 07/07/22 sodium,potassium,mag sulfates 17.5 See Rx Instructions PO .COMPLEX 08/05/22 gram-3.13 gram-1.6 gram oral soln prep (Suprep Bowel Prep Kit) Previous Rx's Medication Instructions Recorded benzonatate 100 mg capsule 100 mg PO TIDP PRN Cough #30 caps 08/11/22 methylprednisolone 4 mg tablets in 4 mg PO DIRECTED #21 tabs 08/11/22 a dose pack Allergies Allergy/AdvReac Type Severity Reaction Status Date / Time cephalexin [From KEFLEX] Allergy Intermediate I-HIVES Verified 08/11/22 19:19 codeine [CODEINE] Allergy Mild NA-NAUSEA/V Verified 08/11/22 19:19 OMITING levofloxacin [From LEVAQUIN] Allergy Mild JOINT Verified 08/11/22 19:19 PAIN PFSH [facility] Disclaimer: The information contained in this section may have been updated after the patient was seen, as this information can be updated by other users. Medical History COPD (chronic obstructive pulmonary disease)
[2022-08-11 18:58] LABS: Coronavirus 19, PCR Not Detected (NotDetected); Influenza A, PCR Not Detected (NotDetected); Influenza B, PCR Not Detected (NotDetected)
[2022-08-11 19:17] VITALS: BP 145/87; PULSE 92; RESP 18; TEMP 37.6; O2SAT 97; BMI 39.9
[2022-08-11 20:15] VITALS: BP 145/87; PULSE 92; RESP 18; TEMP 37.6
[2022-08-11 20:24] LABS: Adenovirus,PCR Not Detected (NotDetected); Bordetella Pertussis Not Detected (NotDetected); Chlamydophila Pneumoniae, PCR Not Detected (NotDetected); Coronavirus 19, PCR Not Detected (NotDetected); Coronavirus 229E Not Detected (NotDetected); Coronavirus NL63 Not Detected (NotDetected); Coronavirus OC43 Not Detected (NotDetected); Coronovirus HKU1,PCR Not Detected (NotDetected); Human Metapneumovirus Not Detected (NotDetected); Influenza A, PCR Not Detected (NotDetected); Influenza AH1, 2009 Not Detected (NotDetected); Influenza AH1, PCR Not Detected (NotDetected); Influenza AH3,PCR Not Detected (NotDetected); Influenza B, PCR Not Detected (NotDetected); Mycoplasma Pneumoniae, PCR Not Detected (NotDetected); Parainfluenza 1, PCR Not Detected (NotDetected); Parainfluenza 2, PCR Not Detected (NotDetected); Parainfluenza 3, PCR Not Detected (NotDetected); Parainfluenza 4, PCR Not Detected (NotDetected); Respiratory Syncytial Virus Not Detected (NotDetected); Rhinovirus/Enterovirus Not Detected (NotDetected)
== END 2022-08-11 20:23 | disposition home or self-care (01) ==
PROVIDERS: Emergency Provider Nurse Practitioner Family; PCP Nurse Practitioner Family
DX: R50.9 Fever, unspecified (principal); R11.10 Vomiting, unspecified; R19.7 Diarrhea, unspecified; M79.10 Myalgia, unspecified site; M54.9 Dorsalgia, unspecified; Z20.822 Contact with and (suspected) exposure to COVID-19; R05.9 Cough, unspecified; R53.81 Other malaise; I10 Essential (primary) hypertension; E03.9 Hypothyroidism, unspecified; G47.30 Sleep apnea, unspecified; J44.9 Chronic obstructive pulmonary disease, unspecified; Z79.52 Long term (current) use of systemic steroids; Z88.5 Allergy status to narcotic agent; Z88.8 Allergy status to other drugs, medicaments and biological substances; Z82.49 Family history of ischemic heart disease and other diseases of the circulatory system; Z83.3 Family history of diabetes mellitus; Z80.9 Family history of malignant neoplasm, unspecified
CPT/HCPCS: 87581; 87632; 87798; 99213; C9803; G0463; U0003; U0005

== ENCOUNTER 2023-09-03 10:19 | Emergency (ER) | payer BC, SELFPAY ==
[2023-09-03 10:20] VITALS: BP 132/79; PULSE 108; RESP 20; O2SAT 95; BMI 43.2
--- NOTE | 2023-09-03 10:24 | ED_ITS ---
Discharge Plan Disposition Patient Disposition: Home, Self-Care Condition: Good Prescriptions Prescriptions: New albuterol sulfate 90 mcg/actuation HFA aerosol inhaler 4 inh inhalation Q6H PRN (Reason: shortness of breath or wheezing) Qty: 8.5 0RF prednisone 20 mg tablet 20 mg PO BID 3 Days Qty: 6 0RF dextromethorphan-guaifenesin 10-100 mg/5 mL liquid 10 ml PO Q6H PRN (Reason: cough) Qty: 500 0RF Discontinued methylprednisolone 4 mg Tablets,Dose Pack 4 mg PO DIRECTED Qty: 21 0RF No Action omeprazole 40 mg capsule,delayed release(DR/EC) 40 mg PO DAILY Qty: 30 2RF sodium,potassium,mag sulfates [Suprep Bowel Prep Kit] 17.5-3.13-1.6 gram recon soln See Rx Instructions PO .COMPLEX Rx Instructions: DILUTE; drink full amount early evening before AND next morning at least 2 hr before procedure; follow w 960 mL water PO benzonatate [benzonatate] 100 mg capsule 100 mg PO TIDP PRN (Reason: Cough) Qty: 30 0RF levothyroxine 112 mcg tablet 112 mcg PO DAILY Saxenda 3 mg/0.5 mL (18 mg/3 mL) pen injector 0.6 mg SQ DAILY meloxicam 15 mg tablet 15 mg PO DAILY liothyronine 5 mcg tablet 5 mcg PO DAILY buspirone 10 mg tablet 10 mg PO TID losartan 25 mg tablet 25 mg PO DAILY fluoxetine 10 mg capsule 10 mg PO .EVERY OTHER DAY Referrals Follow up/Referrals: Karen Darling [Primary Care Provider] - See instructions Activity Restrictions/Add. Instructions Additional Instructions/Restrictions: Please take the medications as described. Please return with any new or worsening symptoms. Please be cognizant of any triggers that might be making him more short of breath. Clinical Impressions Clinical Impression: Bronchitis Instructions Patient Instructions: DI for Acute Bronchitis Discharge ED Provider: Cal Lynch General Adult HPI General Chief complaint: Upper Respiratory Infection Stated complaint: cough,SOA Time Seen by Provider: 09/03/23 10:24 History of Present Illness HPI narrative: The patient reports having bronchitis off and on since the 04 of August. They have been treated with two rounds of antibiotics and steroids, which provided temporary relief. However, the patient's symptoms worsened this morning. The patient experienced some improvement in their symptoms while on medication, but the relief was not sustained. They deny any specific triggers for their symptoms and express concern about the possibility of multiple infectious illnesses or environmental factors affecting their lungs. Related Data Home Medications Medication Instructions Recorded Confirmed buspirone 10 mg tablet 10 mg PO TID Anxiety 06/14/22 07/07/22 fluoxetine 10 mg capsule 10 mg PO .EVERY OTHER DAY mood 06/14/22 07/07/22 levothyroxine 112 mcg tablet 112 mcg PO DAILY thyroid 06/14/22 07/07/22 liothyronine 5 mcg tablet 5 mcg PO DAILY thyroid 06/14/22 07/07/22 liraglutide (weight loss) 3 mg/0.5 0.6 mg SQ DAILY Weight loss 06/14/22 07/07/22 mL (18 mg/3 mL) subcut pen injector (Saxenda) losartan 25 mg tablet 25 mg PO DAILY High blood pressure 06/14/22 07/07/22 meloxicam 15 mg tablet 15 mg PO DAILY muscle relaxant 06/14/22 07/07/22 sodium,potassium,mag sulfates 17.5 See Rx Instructions PO .COMPLEX 08/05/22 gram-3.13 gram-1.6 gram oral soln prep (Suprep Bowel Prep Kit) Previous Rx's Medication Instructions Recorded benzonatate 100 mg capsule 100 mg PO TIDP PRN Cough #30 caps 08/11/22 omeprazole 40 mg capsule,delayed 40 mg PO DAILY #30 caps 08/16/22 release albuterol sulfate 90 mcg/actuation 4 inh inhalation Q6H PRN shortness 09/03/23 aerosol inhaler of breath or wheezing #8.5 grams dextromethorphan-guaifenesin 10 10 ml PO Q6H PRN cough #500 mL 09/03/23 mg-100 mg/5 mL oral liquid prednisone 20 mg tablet 20 mg PO BID 3 days #6 tabs 09/03/23 Allergies Allergy/AdvReac Type Severity Reaction Status Date / Time cephalexin [From KEFLEX] Allergy Intermediate I-HIVES Verified 08/11/22 19:19 codeine [CODEINE] Allergy Mild NA-NAUSEA/V Verified 08/11/22 19:19 OMITING levofloxacin [From LEVAQUIN] Allergy Mild JOINT Verified 08/11/22 19:19 PAIN cefaclor [From Ceclor] Allergy Verified 09/03/23 10:28 [facility] Disclaimer: The information contained in this section may have been updated after the patient was seen, as this information can be updated by other users. Medical History COPD (chronic obstructive pulmonary disease) Hypertension Hypothyroid Sleep apnea Surgical History History of appendectomy History of cholecystectomy History of colonoscopy History of hysterectomy History of tonsillectomy Family History Other Family history of cancer Family history of diabetes mellitus type II Family history of hypertension Social History Smoking Status: Never smoker alcohol intake: never substance use type: denies use current occupational status: employed Travel in the last 8 weeks: None ROS Obtained: Yes Systems reviewed as appropriate & no additional complaints except as documented As per HPI Physical Exam General General appearance: alert, in no apparent distress and other (Frequent nonproductive cough) Head Head exam: atraumatic and normocephalic Eye Eye exam: Present normal appearance Neck Neck exam: Present normal inspection Chest Chest inspection: Present normal inspection and symmetric chest wall rise Respiratory Respiratory exam: Present normal lung sounds bilaterally and wheezes; Absent respiratory distress Cardiovascular Cardiovascular exam: Present regular rate and normal rhythm Abdominal Exam Abdominal exam: Present soft Neurological Exam Neurological exam: Present alert and oriented X3 Psychiatric Psychiatric exam: Present normal affect and normal mood Skin Skin exam: Present warm and dry Medical Decision Making Medical Records Medical records reviewed: Yes I reviewed the patient's medical records. Mika Inquiry Pt receiving controlled substance: No Vital Signs: 09/03/23 10:20 09/03/23 11:52 Temperature 97.9 F Temperature Source Oral Pulse Rate 108 H Pulse Rate [Radial] 108 H Respiratory Rate 20 20 Blood Pressure 132/79 Blood Pressure [Right Arm] 132/79 Blood Pressure Mean [Right Arm] 96 Blood Pressure Source Automatic Cuff Blood Pressure Source [Right Arm] Automatic Cuff Blood Pressure Position Sitting Blood Pressure Position [Right Arm] Sitting 02 Sat by Pulse Oximetry 95 Oxygen Delivery Method Room Air Room Air Lab Data Lab Results 09/03/23 10:40: SARS-CoV-2 (PCR) Not detected, Influenza A Untype (PCR) Not detected, Influenza Type B (PCR) Not detected Orders (Tests/Meds): ED MEDICATIONS Discontinued Medications Generic Name Dose Route Start Last Admin Trade Name Freq PRN Reason Stop Dose Admin Albuterol/Ipratropium 3 ml 09/03/23 10:35 09/03/23 10:40 Ipratropium/Albuterol 3 Ml Neb IH 09/03/23 10:36 3 ml ONCE ONE Administration Albuterol/Ipratropium 3 ml 09/03/23 11:32 09/03/23 11:34 Ipratropium/Albuterol 3 Ml Neb IH 09/03/23 11:33 3 ml ONCE ONE Administration Guaifenesin 10 ml 09/03/23 11:01 09/03/23 11:09 Guaifenesin/Dextromethorphan 200mg/20mg 10ml Udc PO 09/03/23 11:02 10 ml ONCE ONE Administration ORDERS Category Date Time Status XR chest 2V Stat Exams 09/03/23 10:35 Completed Rapid PCR Covid and Flu A/B Stat Lab 09/03/23 10:40 Completed Medical Decision Narrative: Patient with history and exam per above presenting for evaluation of frequent nonproductive cough Diagnoses considered include bronchitis, pneumonia, FERNANDA inhibitor induced, reactive airway disease, asthma, URI ED workup and treatment included: ED MEDICATIONS Discontinued Medications Generic Name Dose Route Start Last Admin Trade Name Freq PRN Reason Stop Dose Admin Albuterol/Ipratropium 3 ml 09/03/23 10:35 09/03/23 10:40 Ipratropium/Albuterol 3 Ml Neb IH 09/03/23 10:36 3 ml ONCE ONE Administration Albuterol/Ipratropium 3 ml 09/03/23 11:32 09/03/23 11:34 Ipratropium/Albuterol 3 Ml Neb IH 09/03/23 11:33 3 ml ONCE ONE Administration Guaifenesin 10 ml 09/03/23 11:01 09/03/23 11:09 Guaifenesin/Dextromethorphan 200mg/20mg 10ml Udc PO 09/03/23 11:02 10 ml ONCE ONE Administration ORDERS Category Date Time Status XR chest 2V Stat Exams 09/03/23 10:35 Completed Rapid PCR Covid and Flu A/B Stat Lab 09/03/23 10:40 Completed Labs were independently interpreted by me, significant for COVID-negative Imaging was independently visualized and interpreted by me, significant for small right infrahilar opacity, etiology unclear, will require outpatient CT scanning, patient and family member were notified of this finding and verbalized understanding and plan to follow-up Symptoms at this time are thought to be most consistent with bronchitis, react carline airway disease, patient had improvement of symptoms after administration of breathing treatment and antitussive, etiology of finding on chest x-ray is unclear at this time however his clinical picture is overall reassuring. I suspect patient likely has component of reactive airway disease. She will continue as needed nebulizer, prescribe short course of steroids, I do not have a clear indication to administer antibiotics at this time, will return with any new or worsening symptoms, additionally prescribed antitussive. Return precautions were given. Critical Care Critical Care Time Critical Care Time: No
--- NOTE | 2023-09-03 10:35 | XR_ITS ---
PROCEDURE INFORMATION: Exam: XR Chest Exam date and time: 09/03/2023 10:56 AM Age: 62 years old Clinical indication: Cough and shortness of breath; Additional info: SOA, productive cough, HX reported bronchitis, TECHNIQUE: Imaging protocol: Radiologic exam of the chest. Views: 2 views. COMPARISON: CR XR CHEST PORTABLE PICC PLAC 06/17/2022 8:49 AM FINDINGS: Lungs: Small indistinct right infrahilar opacity on the current study that may represent confluence of overlapping bronchovascular structures and inconclusive for small infiltrate or mass. Remaining lung mac are aerated and clear. Pleural spaces: Unremarkable. No pleural effusion. No pneumothorax. Heart/Mediastinum: Unremarkable. No cardiomegaly. Bones/joints: Unremarkable for age. IMPRESSION: Interval development of indistinct right infrahilar opacity inconclusive for small infiltrate or mass. Recommend continued follow-up or nonemergent CT chest for further assessment.
[2023-09-03] MEDS: IPRATROPIUM/ALBUTEROL 3 ML NEB IH ×2 (10:40→11:34)
[2023-09-03 10:43] LABS: Coronavirus 19, PCR Not Detected (NotDetected); Influenza A, PCR Not Detected (NotDetected); Influenza B, PCR Not Detected (NotDetected)
[2023-09-03] MEDS: GUAIFENESIN/DEXTROMETHORPHAN 200MG/20MG 10ML UDC 10 ML PO (11:09)
[2023-09-03 11:52] VITALS: BP 132/79; PULSE 108; RESP 20; TEMP 36.6; O2SAT 95
== END 2023-09-03 11:53 | disposition home or self-care (01) ==
PROVIDERS: Emergency Provider Emergency Medicine; PCP Nurse Practitioner Family
DX: J44.0 Chronic obstructive pulmonary disease with (acute) lower respiratory infection (principal); I10 Essential (primary) hypertension; E03.9 Hypothyroidism, unspecified; G47.30 Sleep apnea, unspecified
CPT/HCPCS: 71046; 87636; 99284

== ENCOUNTER 2023-09-14 17:29 | Emergency (ER) | payer BC, SELFPAY ==
--- NOTE | 2023-09-14 17:28 | ECG_ITS ---
APPROVED REPORT Exam: Resting ECG HR:81 bpm ECG Measurements Heart Rate 81 AXES NE 165 P 50 QRSd 92 QRS 19 QT 372 T 20 QTc 409 Conclusion SINUS RHYTHM LOW QRS VOLTAGE IN PRECORDIAL LEADS [QRS DEFLECTION < 1.0 mV IN CHEST LEADS] BORDERLINE ECG UNCONFIRMED REPORT Electronically signed by : Steve Sanchez MD 09/14/2023 20:06:10
[2023-09-14 17:29] VITALS: BP 136/116; PULSE 87; RESP 16; O2SAT 95; BMI 43.2
--- NOTE | 2023-09-14 18:00 | [facility].EDCP ---
Discharge Plan Disposition Patient Disposition: Home, Self-Care Chief Complaint: Chest Pain Prescriptions Prescriptions: No Action omeprazole 40 mg capsule,delayed release(DR/EC) 40 mg PO DAILY Qty: 30 2RF sodium,potassium,mag sulfates [Suprep Bowel Prep Kit] 17.5-3.13-1.6 gram recon soln See Rx Instructions PO .COMPLEX Rx Instructions: DILUTE; drink full amount early evening before AND next morning at least 2 hr before procedure; follow w 960 mL water PO benzonatate [benzonatate] 100 mg capsule 100 mg PO TIDP PRN (Reason: Cough) Qty: 30 0RF levothyroxine 112 mcg tablet 112 mcg PO DAILY Saxenda 3 mg/0.5 mL (18 mg/3 mL) pen injector 0.6 mg SQ DAILY meloxicam 15 mg tablet 15 mg PO DAILY liothyronine 5 mcg tablet 5 mcg PO DAILY buspirone 10 mg tablet 10 mg PO TID losartan 25 mg tablet 25 mg PO DAILY fluoxetine 10 mg capsule 10 mg PO .EVERY OTHER DAY albuterol sulfate 90 mcg/actuation HFA aerosol inhaler 4 inh inhalation Q6H PRN (Reason: shortness of breath or wheezing) Qty: 8.5 0RF prednisone 20 mg tablet 20 mg PO BID 3 Days Qty: 6 0RF dextromethorphan-guaifenesin 10-100 mg/5 mL liquid 10 ml PO Q6H PRN (Reason: cough) Qty: 500 0RF Referrals Follow up/Referrals: Provider,Referral, MD [Primary Care Provider] - See instructions Activity Restrictions/Add. Instructions Additional Instructions/Restrictions: Call your family doctor to establish care for this visit to the emergency department and schedule follow-up within 48 hours to ensure improvement. If you have any worsening of your condition or any other concerning signs or symptoms, return to the emergency department or your primary care doctor for further evaluation. Take 40 mg of your daily antacid (esomeprazole or omeprazole) Clinical Impressions Clinical Impression: Chest pain Discharge ED Provider: Kaushal Godd[facility] Chief Complaint: Chest Pain Stated Complaint: chest pain Time Seen by Provider: 09/14/23 17:35 Mode of Arrival: Ambulatory Source of Information: Patient Limitations: No Limitations Description of Symptoms (Recalled from ER Triage Doc. by RN): Patient states that she has had bronchitis for approx 1 month and today she began to have chest pain that radiates to her back. States she is scheduled for an echo and ct scan in the morning. History of Present Illness HPI narrative: 62-year-old history of COPD, hypothyroidism, sleep apnea presenting with chest pain. Patient states that she has been fighting bronchitis on and off for about a month. Was seen here on 09/03/2023 and diagnosed with bronchitis. She has been following with her PCP. Recently finished a 10-day course of levofloxacin as well as steroid, this does not seem to help. At her visit on , patient was found to have a nodule. She has a CT scan and a echo scheduled for tomorrow, 09/15 to further follow these up. Patient states that she was just sitting at her desk today when she started having a pain that started in substernal and radiates to her left side of her back/shoulder. Denies shortness of breath, nausea or vomiting, diaphoresis, or any other concerns. It has been persistent, dull, and unremitting, so came to the emergency department for further evaluation. Related Data Home Medications Medication Instructions Recorded Confirmed buspirone 10 mg tablet 10 mg PO TID Anxiety 06/14/22 07/07/22 fluoxetine 10 mg capsule 10 mg PO .EVERY OTHER DAY mood 06/14/22 07/07/22 levothyroxine 112 mcg tablet 112 mcg PO DAILY thyroid 06/14/22 07/07/22 liothyronine 5 mcg tablet 5 mcg PO DAILY thyroid 06/14/22 07/07/22 liraglutide (weight loss) 3 mg/0.5 0.6 mg SQ DAILY Weight loss 06/14/22 07/07/22 mL (18 mg/3 mL) subcut pen injector (Saxenda) losartan 25 mg tablet 25 mg PO DAILY High blood pressure 06/14/22 07/07/22 meloxicam 15 mg tablet 15 mg PO DAILY muscle relaxant 06/14/22 07/07/22 sodium,potassium,mag sulfates 17.5 See Rx Instructions PO .COMPLEX 08/05/22 gram-3.13 gram-1.6 gram oral soln prep (Suprep Bowel Prep Kit) Previous Rx's Medication Instructions Recorded benzonatate 100 mg capsule 100 mg PO TIDP PRN Cough #30 caps 08/11/22 omeprazole 40 mg capsule,delayed 40 mg PO DAILY #30 caps 08/16/22 release albuterol sulfate 90 mcg/actuation 4 inh inhalation Q6H PRN shortness 09/03/23 aerosol inhaler of breath or wheezing #8.5 grams dextromethorphan-guaifenesin 10 10 ml PO Q6H PRN cough #500 mL 09/03/23 mg-100 mg/5 mL oral liquid prednisone 20 mg tablet 20 mg PO BID 3 days #6 tabs 09/03/23 Allergies Allergy/AdvReac Type Severity Reaction Status Date / Time cephalexin [From KEFLEX] Allergy Intermediate I-HIVES Verified 08/11/22 19:19 codeine [CODEINE] Allergy Mild NA-NAUSEA/V Verified 08/11/22 19:19 OMITING levofloxacin [From LEVAQUIN] Allergy Mild JOINT Verified 08/11/22 19:19 PAIN cefaclor [From Ceclor] Allergy Verified 09/03/23 10:28 PFSH [facility] Disclaimer: The information contained in this section may have been updated after the patient was seen, as this information can be updated by other users. Medical History COPD (chronic obstructive pulmonary disease) Hypertension Hypothyroid Sleep apnea Surgical History History of appendectomy History of cholecystectomy History of colonoscopy History of hysterectomy History of tonsillectomy Family History Other Family history of cancer Family history of diabetes mellitus type II Family history of hypertension Social History Smoking Status: Never smoker alcohol intake: never substance use type: denies use current occupational status: employed Travel in the last 8 weeks: None ROS Obtained: Yes All systems reviewed & no additional complaints except as documented Physical Exam General General appearance: alert Neck Neck exam: Present trachea midline Chest Chest inspection: Present normal inspection and symmetric chest wall rise Respiratory Respiratory exam: Present normal lung sounds bilaterally; Absent respiratory distress, wheezes, stridor, accessory muscle use or prolonged expiratory phase Cardiovascular Cardiovascular exam: Present regular rate and normal rhythm Extremities Exam Extremities exam: Absent edema Neurological Exam Neurological exam: Present alert, oriented X3 and CN II-XII intact Skin Skin exam: Present warm and dry; Absent cyanosis, diaphoresis or pallor HEART Score HEART Score HEART Score assessment performed?: Yes HEART Score: 3 Procedures Limited Ultrasound Indication:: Limited cardiac ultrasound Indication: Chest pain Identified cardiac views: -Cardiac parasternal long axis -Cardiac parasternal short axis Findings: -Cardiac activity present -Gross wall motion normal -Pericardial effusion absent -Right heart strain absent Impression: Normal cardiac ultrasound Images were saved to permanent archive The study was technically adequate CPT: 06154 This study was performed by me, and I personally interpreted all images/videos. Based on my clinical judgement, these images were adequate and not necessitate further imaging. Critical Care Critical Care Time Critical Care Time: No Medical Decision Making Medical Records Medical records reviewed: Yes I reviewed the patient's medical records. Mika Inquiry Pt receiving controlled substance: No Mika was queried for this patient: No Vital Signs Vital Signs: 09/14/23 17:29 09/14/23 18:01 09/14/23 18:34 Pulse Rate 78 77 Pulse Rate [Radial] 87 Respiratory Rate 16 23 18 Blood Pressure 145/73 H 159/103 H Blood Pressure [Right Arm] 136/116 H Blood Pressure Mean [Right Arm] 122 Blood Pressure Source [Right Arm] Automatic Cuff Blood Pressure Position [Right Arm] Supine 02 Sat by Pulse Oximetry 95 95 96 Oxygen Delivery Method Room Air Lab Data Labs: Lab Results 09/14/23 17:35: WBC 10.3, RBC 5.11, Hgb 14.2, Hct 42.9, MCV 84.0, MCH 27.8, MCHC 33.1, RDW 14.0, Plt Count 248, MPV 8.0, Neut % (Auto) 66.1, Lymph % (Auto) 17.8, Parker % (Auto) 4.4, Eos % (Auto) 11.4, Baso % (Auto) 0.4, Neut # (Auto) 6.8, Lymph # (Auto) 1.8, Parker # (Auto) 0.5, Eos # (Auto) 1.2 H, Baso # (Auto) 0.0, Sodium 139, Potassium 4.2, Chloride 103, Carbon Dioxide 30, Anion Gap 10.2, BUN 17, Creatinine 1.00, Estimated Creat Clear 52, Estimated GFR 56 L, Est GFR ( Amer) 68, Glucose 106 H, Calcium 8.8, Total Bilirubin 0.4, AST 30, ALT 27, Alkaline Phosphatase 115, Troponin I < 0.01, Total Protein 7.3, Albumin 4.0, Globulin 3.3 H, Albumin/Globulin Ratio 1.2 09/14/23 20:44: Troponin I < 0.01 09/14/23 17:35 09/14/23 17:35 Response Orders (Tests/Meds): ED MEDICATIONS Generic Name Dose Route Start Last Admin Trade Name Freq PRN Reason Stop Dose Admin Sodium Chloride 8 ml 09/14/23 18:24 Sodium Chloride 0.9% 10ml Vial IV 10/14/23 18:23 NEEDED PRN dilute pepcid Discontinued Medications Generic Name Dose Route Start Last Admin Trade Name Freq PRN Reason Stop Dose Admin Aspirin 324 mg 09/14/23 18:04 09/14/23 18:11 Aspirin 81mg Chewable Tablet PO 09/14/23 18:05 324 mg ONCE ONE Administration Belladonna Alkaloids 60 ml 09/14/23 18:24 09/14/23 18:27 Belladonna Alkaloids 60 Ml Ml PO 09/14/23 18:25 60 ml ONCE ONE Administration Famotidine 20 mg 09/14/23 18:24 09/14/23 18:27 Famotidine 20mg/2ml Vial IV 09/14/23 18:25 20 mg ONCE ONE Administration Ketorolac Tromethamine 15 mg 09/14/23 18:03 09/14/23 18:12 Ketorolac 30mg/Ml Vial IV 09/14/23 18:04 15 mg ONCE ONE Administration Pantoprazole Sodium 40 mg 09/14/23 18:24 09/14/23 18:27 Pantoprazole 40mg Tablet PO 09/14/23 18:25 40 mg ONCE ONE Administration ORDERS Category Date Time Status CXR --portable [XR chest portable] Stat Exams 09/14/23 18:03 Completed POCUS Point of Care (ER Only) Stat Exams 09/14/23 18:04 Taken CBC w/Auto Diff [Complete Blood Count Auto Diff] Stat Lab 09/14/23 17:35 Completed CMP [Comprehensive Metabolic Panel] Stat Lab 09/14/23 17:35 Completed Trop I [Troponin I] Stat Lab 09/14/23 17:35 Completed Troponin I Q3H Lab 09/14/23 20:44 Completed Troponin I Q3H Lab 09/15/23 00:15 Ordered ECG initial Besson Routine Y 09/14/23 17:28 Completed MDM Narrative Medical Decision Narrative: 62-year-old history of hypothyroidism, sleep apnea presenting with chest pain. Patient states that she has been fighting bronchitis on and off for about a month. Was seen here on 09/03/2023 and diagnosed with bronchitis. She has been following with her PCP. Recently finished a 10-day course of levofloxacin as well as steroid, this does not seem to help. At her visit on new received, patient was found to have a nodule. She has a CT scan and a echo scheduled for tomorrow, 09/15 to further follow these up. Patient states that she was just sitting at her desk today when she started having a pain that started in substernal and radiates to her left side of her back/shoulder. Denies shortness of breath, nausea or vomiting, diaphoresis, or any other concerns. It has been persistent, dull, and unremitting, so came to the emergency department for further evaluation. History was obtained via conversation with patient and family. On arrival, patient hemodynamically stable, alert, oriented x4, appropriate, GCS 15, moving all extremities spontaneously, pupils equal and reactive to light. Full physical exam performed and significant for well-appearing woman in no acute distress. Saturating appropriately, afebrile. Mildly hypertensive, nontachycardic. Lungs clear to auscultation bilaterally. Pulses equal and symmetric. Cardiac exam within normal limits without extracardiac sounds. Neurologically intact. Patient intermittently coughing Differential includes bronchitis, pneumonia, ACS, AZ, PE, pneumothorax, dissection, aneurysm, among others. Patient was given aspirin, Toradol for symptomatic management and correction of underlying abnormalities. Workup independently interpreted and significant for negative initial troponin. CBC remarkable for elevated eosinophils. Nonactionable chemistry. Chest x-ray without acute cardiopulmonary airspace disease. Bedside ultrasound normal. See radiology read for full review of final results. Independent interpretation of EKG shows sinus rhythm [address] or T wave changes concerning for acute ischemia. Good R wave progression. VT, QRS, QT intervals within normal limits. Patient was placed in observation beginning at 1735 in order to rule out delta troponins and evolving AZ and determine need for admission versus home-going. The patient was provided GI cocktail, Pepcid, bedside ultrasound while awaiting results. Independent interpretation of results demonstrated nonactionable CBC or chemistry. Negative delta troponin. Normal bedside ultrasound. On reevaluation, patient feeling much better after Pepcid and GI cocktail. At this time, I feel patient is appropriate for discharge. Total observation time 3 hours. Because patient at baseline without signs or symptoms of clinical decompensation, deemed appropriate for discharge. Results were relayed to patient who voiced understanding and were agreeable to outpatient management and follow up. At the time of discharge the patient was hemodynamically stable, tolerating PO, and mobilizing appropriately.
[2023-09-14 18:01] VITALS: BP 145/73; PULSE 78; RESP 23; O2SAT 95
--- NOTE | 2023-09-14 18:03 | XR_ITS ---
PROCEDURE INFORMATION: Exam: XR Chest Exam date and time: 09/14/2023 6:12 PM Age: 62 years old Clinical indication: Pain; Chest pressure; Additional info: Cough, bronchitis, cp TECHNIQUE: Imaging protocol: Radiologic exam of the chest. Views: 1 view. COMPARISON: CR XR CHEST 2V 09/03/2023 10:56 AM FINDINGS: Lungs: Low lung volumes with mild bibasilar atelectasis. No consolidation. Pleural spaces: Normal No pleural effusion. No pneumothorax. Heart/Mediastinum: Normal. No cardiomegaly. Vasculature: Tortuous atherosclerotic thoracic aorta. Bones/joints: [place] screws in the left glenoid. IMPRESSION: Low lung volumes with mild bibasilar atelectasis. No consolidation.
[2023-09-14] MEDS: ASPIRIN 81MG CHEWABLE TABLET 324 MG PO (18:11)
[2023-09-14] MEDS: KETOROLAC 30MG/ML VIAL 15 MG IV (18:12)
[2023-09-14 18:16] LABS: Basophils % 0.4 % (0.1-2.0); Eosinophils # 1.2 K/mm3 (0.0-0.4); Eosinophils % 11.4 % (0.1-12.0); Hematocrit 42.9 % (37.0-47.0); Hemoglobin 14.2 g/dL (12.2-16.2); Lymphocytes # 1.8 K/mm3 (0.7-4.5); Lymphocytes % 17.8 % (10-50); Mean Corpuscular HGB Conc 33.1 g/dL (31.8-35.4); Mean Corpuscular Hemoglobin 27.8 pg (27.0-31.2); Monocytes # 0.5 K/mm3 (0.1-1.0); Monocytes % 4.4 % (1.7-9.3); Neutrophils # 6.8 K/mm3 (1.8-7.8); Neutrophils % 66.1 % (37.0-80.0); Platelet Count 248 K/mm3 (142-424); Red Blood Count 5.11 M/mm3 (4.20-5.40); White Blood Count 10.3 K/mm3 (4.8-10.8)
[2023-09-14 18:17] LABS: Chloride 103 mmol/L (98-107); Sodium 139 mmol/L (136-145)
--- NOTE | 2023-09-14 18:17 | PC.NURSE ---
CHECKED ON PT WAS GIVEN SMALL AMOUNT OF WATER TO SWALLOW MED RN WAS GIVING HER NO OTHER NEEDS AT THIS TIME,CALL LIGHT AT BS
[2023-09-14 18:18] LABS: Potassium 4.2 mmoL/L (3.5-5.1)
[2023-09-14 18:20] LABS: Alanine Aminotransferase 27 U/L (12-78); Albumin/Globulin Ratio 1.2 (1.1-1.8); Alkaline Phosphatase 115 U/L (38-126); Anion Gap 10.2 mEq/L (5-15); Aspartate Amino Transferase 30 U/L (14-36); Bilirubin,Total 0.4 mg/dl (0.2-1.3); Blood Urea Nitrogen 17 mg/dl (7-17); Carbon Dioxide 30 mmol/L (22.0-30.0); Creatinine Clearance Estimated 52 mL/min (50-200); Estimated Glomerular Filt Rate 56 ml/min (>60); GFR (African American) 68 ML/MIN (>60); Globulin 3.3 g/dL (1.3-3.2); Total Protein,Serum 7.3 g/dl (6.3-8.2)
[2023-09-14 18:21] LABS: Calcium 8.8 mg/dl (8.4-10.2); Glucose 106 mg/dl (74-100)
[2023-09-14] MEDS: FAMOTIDINE 20MG/2ML VIAL 20 MG IV (18:27)
[2023-09-14] MEDS: BELLADONNA ALKALOIDS 60 ML ML PO (18:27)
[2023-09-14] MEDS: PANTOPRAZOLE 40MG TABLET 40 MG PO (18:27)
[2023-09-14 18:32] LABS: Troponin I < 0.01 ng/ml (0.00-0.034)
[2023-09-14 18:34] VITALS: BP 159/103; PULSE 77; RESP 18; O2SAT 96
[2023-09-14 21:23] LABS: Troponin I < 0.01 ng/ml (0.00-0.034)
[2023-09-14 21:57] VITALS: BP 144/93; PULSE 66; RESP 11; TEMP 36.7; O2SAT 95
== END 2023-09-14 21:59 | disposition home or self-care (01) ==
PROVIDERS: Emergency Provider Emergency Medicine
DX: R07.9 Chest pain, unspecified (principal); M54.6 Pain in thoracic spine; M25.512 Pain in left shoulder; J44.0 Chronic obstructive pulmonary disease with (acute) lower respiratory infection; E03.9 Hypothyroidism, unspecified; G47.30 Sleep apnea, unspecified; I10 Essential (primary) hypertension
CPT/HCPCS: 71045; 80053; 84484; 85025; 93005; 96374; 96375; 99285

== ENCOUNTER 2023-09-15 06:55 | Outpatient (CLI) | payer BC, SELFPAY ==
--- NOTE | 2023-09-15 07:12 | CT_ITS ---
FINAL REPORT TECHNIQUE: Axial CT images were performed from the lung apices through the upper abdomen. Coronal reformats were submitted. This study was performed with techniques to keep radiation doses as low as reasonably achievable (ALARA). Individualized dose reduction techniques using automated exposure control or adjustment of mA and/or kV according to the patient's size were employed. CLINICAL HISTORY: LUNG NODULE FINDINGS: There are multiple mildly enlarged mediastinal nodes. Right paratracheal node measures 21 mm. Some of the nodes are partially calcified. Heart size is normal. There is no pericardial or pleural effusion. There are several calcified granulomas bilaterally. There are numerous small noncalcified pulmonary nodules. Most of the pulmonary nodules are in the posterior right upper lobe. Anterior right upper lobe nodule measures 7 mm is seen on image 34. Limited images of the upper abdomen demonstrate mild fatty infiltration of the liver. The patient is status post cholecystectomy. IMPRESSION: Numerous noncalcified pulmonary nodules, favor postinflammatory. Recommend chest CT follow-up in 6 months. Reviewed, Interpreted and Dictated by Young Leroy III, MD Transcribed by Viola West Authenticated and [facility]
--- NOTE | 2023-09-15 07:27 | CA_ITS ---
APPROVED REPORT EXAM: Comprehensive 2D, Doppler, and color-flow Echocardiogram Plan Examiner: Belinda Canseco RDCS Ht: 5 ft 5 in Wt: 246lbs BSA: 2.16 BP: 132/79 mmHg Indications: JUSTICE,ROMELIA,COPD,HTN M-Mode Dimensions RVDd 2.72 cm (0.9-2.6) LA Diam 3.83 cm (1.9-4.0) LVDd 4.90 cm (3.5-5.7) LVDs 3.52 cm (3.5-5.7) IVSd 0.67 cm (0.6-1.1) PWd 0.67 cm (0.6-1.1) EF (Teich) 54.30% FS 28.20% EDV (Teich) 112.80 mL ESV (Teich) 51.60 mL LV Diastology E Decel Time 210 (160-240 msec) E/A Ratio 1.0 Mitral Valve MV E Max Keaton. 78.0 (40-130 cm/s) MV A Velocity 75.0 (40-130 cm/s) E/A Ratio 1.04 MV PHT 62.0 ms Left Ventricle The left ventricle is normal size. The left ventricular systolic function is normal. The left ventricular ejection fraction is within the normal range. There is normal left ventricular wall thickness. There is normal LV segmental wall motion. The left ventricular diastolic function is normal. LVEF is 55%. Right Ventricle Right ventricle is moderately dilated. Right ventricle is moderately hypokinetic. Atria The left atrium size is normal. The right atrium size is normal. There is no Doppler evidence of interatrial shunt. Aortic Valve The aortic valve is mildly thickened. There is no aortic valvular stenosis. Trace aortic regurgitation is present. Mitral Valve The mitral valve is normal in structure. No evidence of mitral valve stenosis. Mild mitral regurgitation. Tricuspid Valve The tricuspid valve leaflets are thin and pliable. Trace tricuspid regurgitation. There is insufficient TR jet to estimate RVSP. Pulmonic Valve The pulmonary valve is normal in structure. Mild pulmonic regurgitation. Great Vessels The aortic root is normal in size. The ascending aorta is normal in size. The IVC is not well-visualized. Pericardium There is no pericardial effusion. Other Information Study Quality: Fair Conclusion Normal LV systolic function. Moderate RV dilation with moderate RV dysfunction. Mild MR. Mild PI. Electronically signed by : Zoraida Grey MD 09/18/2023 00:51:09
== END 2023-09-15 23:59 ==
LOC: RAD 06:57
PROVIDERS: PCP Nurse Practitioner Family; Visit Provider Nurse Practitioner Family
DX: R91.1 Solitary pulmonary nodule (principal); R06.09 Other forms of dyspnea
CPT/HCPCS: 71250; 93306

== ENCOUNTER 2024-04-22 16:29 | Outpatient (CLI) | payer BC, SELFPAY ==
--- NOTE | 2024-04-22 16:32 | MM_ITS ---
PROCEDURE INFORMATION: Exam: MG Bilateral Screening 3D Mammography Exam date and time: 04/22/2024 4:23 PM Age: 63 years old Clinical indication: Screening examination TECHNIQUE: Imaging protocol: Bilateral Screening tomosynthesis and 2D mammography including computer-aided detection (CAD) when performed. COMPARISON: 1. MG MM DIG SCREENING MAMM BI W/CAD 02/24/2020 4:56 PM 2. MG DXLT MM Dig mamm DX unilat LT CAD 07/30/2018 1:15 PM FINDINGS: MAMMOGRAPHY: Breast composition: There are scattered areas of fibroglandular density. Mass: 0.8 cm mass in the middle third of the left central breast Architectural distortion: None. Calcifications: No suspicious calcifications. Asymmetric density: None. Skin thickening: None. Axillary adenopathy: None. IMPRESSION: Patient to be recalled for spot compression views of the left breast in the CC and MLO projections, a full 90 degree lateral view, and possible left breast ultrasound for further evaluation of a left breast mass. ASSESSMENT: BI-RADS Category 0: Incomplete- Need Additional Imaging Evaluation and/or Prior Mammograms for Comparison.
== END 2024-04-22 23:59 | disposition home or self-care (01) ==
LOC: RAD 16:29
PROVIDERS: PCP Nurse Practitioner Family; Visit Provider Nurse Practitioner Family
DX: Z12.31 Encounter for screening mammogram for malignant neoplasm of breast (principal)
CPT/HCPCS: 77063; 77067

== ENCOUNTER 2024-04-30 13:39 | Outpatient (CLI) | payer BC, SELFPAY ==
--- NOTE | 2024-04-30 13:42 | MM_ITS ---
PROCEDURE INFORMATION: Exam: US Left Breast, Complete MG Left Diagnostic Breast Tomosynthesis Exam date and time: 04/30/2024 2:13 PM Age: 63 years old Clinical indication: Patient recalled on the basis of a screening mammogram for further evaluation; Left breast; mass TECHNIQUE: Imaging protocol: Complete ultrasound of all four quadrants of the left breast and the retroareolar regions, including ultrasound of the axilla when performed. Left Diagnostic tomosynthesis and 2D mammography including computer-aided detection (CAD) when performed. Unilateral or bilateral exam. COMPARISON: US BREAST LT COMPLETE 04/30/2024 2:13 PM FINDINGS: MAMMOGRAPHY: Breast composition: There are scattered areas of fibroglandular density (based on the most recent screening mammogram report). Breast mammogram findings: Digital diagnostic spot compression views of the left breast and 90 degree lateral view of the left breast demonstrate a persistent ovoid 0.8 cm mass slightly lateral to the nipple line. ULTRASOUND: Breast ultrasound findings: Sonographic images of the left upper outer quadrant demonstrate 3 subcentimeter cysts. Left 2 o'clock axis 0.7 cm cyst 7 cm from the nipple. 0.9 cm cyst in the 2 o'clock axis 4 cm from the nipple most closely corresponds to the mass on mammography. Additional 0.7 cm cyst in the left 3 o'clock axis 2 cm from the nipple. No solid masses. No architecture distortion or acoustical shadowing. No other focal findings in the remainder of the left breast. No axillary adenopathy. IMPRESSION: Mass on screening mammography corresponds to underlying cystic change sonographically. There is no mammographic evidence of malignancy.Annual bilateral mammographic screening is recommended unless otherwise clinically indicated. ASSESSMENT: BI-RADS Category 2: Benign.
== END 2024-04-30 23:59 | disposition home or self-care (01) ==
LOC: RAD 13:39
PROVIDERS: PCP Nurse Practitioner Family; Visit Provider Nurse Practitioner Family
DX: R92.8 Other abnormal and inconclusive findings on diagnostic imaging of breast (principal)
CPT/HCPCS: 76641; 77061; 77065; G0279

== ENCOUNTER 2025-06-24 16:16 | Outpatient (CLI) | payer BC, SELFPAY ==
--- OUTSIDE RECORDS SUMMARY | 2025-05-19 10:30 | XMS_ITS | Encounter Summary ---
Author Organization [facility] Address [address] [place] [address] Care Team Providers Care Sammying Machine Operator Name Role Phone Karen Darling APRN Primary Care Provider [phone] Reason for Referral * Diagnostic Imaging (Routine) - Pending Review Specialty Diagnoses / Procedures Referred By Contac t Referred To Contact Diagnoses Sarcoidosis of lung Hypertension, essential Procedures Adult Transthoracic Echo Complete W/ Cont if Necessary Per Protocol WI ECHO TTHRC R-T 2D W/WOM-MODE COMPL SPEC&COLR D WI ECHO TRANSTHORC R-T 2D W/WO M-MODE REC F-UP/LMTD Charis [place] [address] Phone: tel: fax: [facility] [address] [place] [address] Phone: tel: fax: Referral ID Status Reason Start Date Expiration Date V isits Requested Visits Authorized [id number] Pending Review 05/19/2025 08/18/2026 1 1 Reason for Visit * Reason Comments Hypertension Pt states she is her e today for follow up HTN. No chest pain, SOA, Palpitations or dizziness. Encounter Details Date Type Department Care Team (Late st Contact Info) Description 05/19/2025 10:30 AM EDT Office Visit [facility] [address] [place] [address] Chrais Vazquez MD [address] [place] [address] Sarcoidosis of lung (Primary Dx); Class 3 obesity with alveolar hypoventilation, serious comorbidity, and body mass index (BMI) of 45.0 to 49.9 in adult; Hypertension, essential Social History Tobacco Use Types Packs/Day Years Used Date Smoking Tobacco: Never Passive Smoke Exposure: Never Smokeless Tobacco: Never Tobacco Cessation:Counseling Given: Yes Alcohol Use Standard Drinks/Week Comments Not Currently 0 (1 standard drink = 0.6 oz pur e alcohol) Once or twice a year Abuse Screen Answer Date Recorded Feels Unsafe at Home or Work/School no 12/07/2023 Feels Threatened by Someone no 12/2023 Does Anyone Try to Keep You From Having Contact with Others or Doing Things Outside Your Home? no 12/07/2023 Physical Signs of Abuse Present no 12/07/2023 Disabilities Answer Date Recorded Difficulty Concentrating, Remembering or Making Decisions no 12/07/2023 Difficulty Managing Errands Independently no 12/07/2023 Education Answer Date Recorded Help with school or training? Not on file Preferred Language Puerto Rican 12/04/2023 Comments Unknown Sex and Gender Information Value Date Recorded Sex Assigned at Female 11/04/2024 9:33 AM EST Legal Sex Female 12:28 PM EDT Gender Identity Not on file Sexual Orientation Not on file documented as of this encounter Last Filed Vital Signs Vital Sign Reading Time Taken Comments Blood Pressure 110/68 05/19/2025 10:26 AM EDT Pulse 75 05/19/2025 10:26 AM EDT Temperature - - Respiratory Rate - - Oxygen Saturation 97% 05/19/2025 10:26 AM EDT Inhaled Oxygen Concentration - - Weight 88 kg (194 lb) 05/19/2025 10:26 AM EDT Height 160 cm (5' 3 ) 05/19/2025 10:26 AM EDT Body Mass Index 34.37 05/19/2025 10:26 AM EDT documented in this encounter Progress Notes * Charis Vazquez MD - 05/19/2025 10:30 AM EDT Images from the original note were not included. [facility] Provider Note Date: 05/19/2025 Name: Tiffani Ralph : 1960 PCP: Karen Darling APRN Chief Complaint Patient presents with Hypertension Pt states she is here today for follow up HTN. No chest pain, SOA, Palpitations or dizziness. Subjective History of Present Illness Tiffani Ralph is a 64 y.o. female who presents today for Follow up with sarcoidosis. B/P has been doing well. Wegovy and weight loss.Still losing weight and doing good with. No Shortness of air No Chest pain or palpitations No Swelling No Dizziness or syncope 05/19/2025 Updated with no new issues or concerns. Cardiac related problem list Sarcoidosis - pulmonary involvement, follows with Dr. Schrader, no treatment at this time. HTN Obesity - on wegovy sent in thru our office Allergies Allergen Reactions Ceclor [Cefaclor] Other (See Comments) Blacked out Codeine Nausea And Vomiting Paxlovid [Nirmatrelvir-Ritonavir] Nausea And Vomiting Current Outpatient Medications: albuterol (PROVENTIL) (2.5 MG/3ML) 0.083% nebulizer solution, Inhale 3 mL 3 times a day by nebulization route as needed. (Patient taking differently: No sig reported), Disp: , Rfl: busPIRone (BUSPAR) 10 MG tablet, TAKE ONE TABLET BY MOUTH THREE TIMES DAILY for anxiety, Disp: , Rfl: estradiol (ESTRACE) 0.1 MG/GM vaginal cream, Insert 1 applicatorful twice a week by vaginal route, for UTI prevention., Disp: , Rfl: FLUoxetine (PROzac) 10 MG capsule, Take 1 capsule by mouth Daily., Disp: , Rfl: furosemide (LASIX) 20 MG tablet, Take 1 tablet by mouth Daily As Needed (swelling)., Disp: 30 tablet, Rfl: 11 levothyroxine (SYNTHROID, LEVOTHROID) 125 MCG tablet, Take 1 tablet by mouth Every Morning., Disp: , Rfl: liothyronine (CYTOMEL) 5 MCG tablet, Take 1 tablet by mouth 2 (Two) Times a Day., Disp: , Rfl: losartan (COZAAR) 25 MG tablet, Take 1 tablet by mouth Daily., Disp: , Rfl: meclizine (ANTIVERT) 25 MG tablet, Take 1 tablet by mouth Every 8 (Eight) Hours., Disp: , Rfl: metFORMIN ER (GLUCOPHAGE-XR) 500 MG 24 hr tablet, Take 1 tablet by mouth Daily., Disp: , Rfl: ondansetron ODT (ZOFRAN-ODT) 4 MG disintegrating tablet, DISSOLVE ONE TABLET ON THE TONGUE every SIX hours as needed FOR nausea, Disp: , Rfl: pantoprazole (PROTONIX) 40 MG EC tablet, Take 1 tablet by mouth Daily., Disp: , Rfl: vitamin D (ERGOCALCIFEROL) 1.25 MG (11232 UT) capsule capsule, Take 1 capsule by mouth Every 7 (Seven) Days., Disp: , Rfl: Wegovy 1.7 MG/0.75ML solution auto-injector, INJECT 1.7 MG SUBCUTANEOUSLY every week, Disp: , Rfl: Past Medical History: Diagnosis Date Arthritis Bronchitis Chronic bronchitis 08/04/2023 Diabetes mellitus GERD (gastroesophageal reflux disease) 09/14/2023 Hypertension Lung nodule 09/03/2023 Pneumonia PONV (postoperative nausea and vomiting) Primary central sleep apnea 09/2016 Sleep apnea, obstructive 09/2016 Thyroid disease Past Surgical History: Procedure Laterality Date ANKLE SURGERY plate put in APPENDECTOMY BLADDER SURGERY BRONCHOSCOPY N/A 12/07/2023 Procedure: BRONCHOSCOPY WITH ENDOBRONCHIAL ULTRASOUND; Surgeon: Kevin Schrader MD; Location: [facility]; Service: Pulmonary; Laterality: N/A; EBUS scope removed with balloon intact. GALLBLADDER SURGERY HYSTERECTOMY SHOULDER SURGERY Family History Problem Relation Age of Onset Hypertension Mother Diabetes Mother Brother Kentrell Wong Heart failure Mother Cancer Father Brother -cancer Heart failure Sister Diabetes Brother Diabetes Brother Social History Socioeconomic History Marital status: Tobacco Use Smoking status: Never Passive exposure: Never Smokeless tobacco: Never Vaping Use Vaping status: Never Used Substance and Sexual Activity Alcohol use: Not Currently Comment: Once or twice a year Drug use: Never Sexual activity: Yes Partners: Male control/protection: None Objective Vital Signs: BP 110/68 (BP Location: Right arm, Patient Position: Sitting, Cuff Size: Large Adult) Pulse 75 Ht 160 cm (63 ) Wt 88 kg (194 lb) SpO2 97% BMI 34.37 kg/m?? Estimated body mass index is 34.37 kg/m?? as calculated from the following: Height as of this encounter: 160 cm (63 ). Weight as of this encounter: 88 kg (194 lb). Physical Exam Constitutional: Appearance: Normal appearance. She is well-developed. HENT: Head: Normocephalic and atraumatic. Eyes: General: No scleral icterus. Pupils: Pupils are equal, round, and reactive to light. Cardiovascular: Rate and Rhythm: Normal rate and regular rhythm. Heart sounds: Normal heart sounds. No murmur heard. Pulmonary: Breath sounds: Normal breath sounds. No wheezing or rhonchi. Musculoskeletal: Right lower leg: No edema. Left lower leg: No edema. Skin: Capillary Refill: Capillary refill takes less than 2 seconds. Coloration: Skin is not cyanotic. Nails: There is no clubbing. Neurological: Mental Status: She is alert and oriented to person, place, and time. Motor: No weakness. Gait: Gait normal. Psychiatric: Mood and Affect: Mood normal. Behavior: Behavior is cooperative. Thought Content: Thought content normal. Cognition and Memory: Memory normal. Assessment and Plan Diagnoses and all orders for this visit: 1. Sarcoidosis of lung (Primary) - Adult Transthoracic Echo Complete W/ Cont if Necessary Per Protocol; Future 2. Class 3 obesity with alveolar hypoventilation, serious comorbidity, and body mass index (BMI) of45.0 to 49.9 in adult 3. Hypertension, essential - Adult Transthoracic Echo Complete W/ Cont if Necessary Per Protocol; Future PLAN: -doing well on wegovy. Will stay on current dose, hit a little plateau so suggest doing strength training and protein intake to help further fat loss -no shortness of breath, will email Dr. Schrader as she is due for follow up soon. -will do an annual echo in november. -blood pressure looking good. Continue meds Follow Up Return in about 6 months (around 11/16/2025) for Next scheduled follow up, with testing at that appointment. Martha Vazquez MD Cardiology and Sleep [facility] 05/19/2025 Please note that this explicitly excludes time spent on other separate billable services such as performing procedures or test interpretation, when applicable. This note was created using dictation software which occasionally transcribes nonsensical phrases. Please contact the provider if any clarification is needed. documented in this encounter Plan of Treatment Upcoming Encounters Date Type Department Care Team (Late st Contact Info) Description 07/23/2025 8:00 AM EST Office Visit [facility] [address] [facility] [facility] [place] [address] 07/23/2025 9:00 AM EST Office Visit [facility] MEDIC[facility] [address] [facility] [place] [address] Kevin Schrader MD [address] [place], [place] [id number] 11/17/2025 9:30 AM EDT Ancillary Procedure [facility] [place] [address] 11/17/2025 11:30 AM EDT Office Visit [facility] [place] [address] Charis Vazquez MD [address] [place] [address] Scheduled Orders Name Type Priority Associated Diagnoses Order Schedule Adult Transthoracic Echo Complete W/ Cont if Necessary Per Protocol Echocardiography Routine Sarcoidosis of lung Hypertension, essential Expected: 11/15/2025, Expires: 05/19/2026 documented as of this encounter Visit Diagnoses Diagnosis Sarcoidosis of lung- Primary Sarcoidosis Class 3 obesity with alveolar hypoventilation, serious comorbidity, and body mass index (BMI) of 45.0 to 49.9 in adult Hypertension, essential Unspecified essential hypertension documented in this encounter Care Teams Sammying Machine Operator Relationship Specialty Start Date End Date Karen Darling APRN [address] [place] [id number] PCP - General Nurse Practitioner 09/22/23 documented as of this encounter
--- OUTSIDE RECORDS SUMMARY | 2025-06-24 16:17 | XMS_ITS | Clinical Summary ---
Author Organization [facility] Address [address] [place] [address] Care Team Providers Care Pathology Collector Name Role Phone Enma Fleming Primary Care Provider Family History Medical History Relation Name Comments Celiac disease Brother 1 Diabetes Brother 2 Cardiac disorder Father Diabetes Father Hypertension Father Other cancer Father Cardiac disorder Mother Dementia Mother Depression Mother Diabetes Mother Hypertension Mother Kidney disease Mother Hypertension Sister Relation Name Status Comments Brother 1 Brother 2 Father Mother Sister Social History Tobacco Use Types Packs/Day Years Used Date Smoking Tobacco: Never Alcohol Use Standard Drinks/Week Comments Yes 0 (1 standard drink = 0.6 oz pur e alcohol) Comments Unknown Sex and Gender Information Value Date Recorded Sex Assigned at Female 10/14/2023 8:44 AM EST Legal Sex Female 7:37 PM EDT Gender Identity Female 10/14/2023 8:44 AM EST Sexual Orientation Not on file Last Filed Vital Signs Vital Sign Reading Time Taken Comments Blood Pressure 138/92 10/18/2023 9:37 AM EST Pulse 69 10/18/2023 9:37 AM EST Temperature - - Respiratory Rate 19 10/18/2023 9:37 AM EST Oxygen Saturation 93% 10/18/2023 9:37 AM EST Inhaled Oxygen Concentration - - Weight 118 kg (260 lb 12.9 oz) 10/18/2023 9:37 A M EST Height 167.6 cm (5' 6 ) 10/09/2013 2:41 PM EST Body Mass Index - - Plan of Treatment Health Maintenance Due Date Last Done Comments [facility]-Depression Screening 1960 [facility]-HIV Screening 1960 [facility]-Hepatitis C Screening 1960 [facility]-/Child/Adol SDOH Screenings 1960 [facility]- SDOH Screenings 1978 [facility]-Adult SDOH Screenings 1978 [facility]-DTaP,Tdap,and Td Vaccine s (1 - Tdap) 11/14/1979 CT Colonography 2005 Colonoscopy 2005 FIT-DNA 2005 FIT 2005 FOBT 2005 Sigmoidoscopy 2005 [facility]-Colorectal Cancer Screening 2005 [facility]-Pneumococcal Vaccine: 50 + Years (1 of 1 - PCV) 2010 [facility]-Breast Cancer Screening 02/24/202502/03, 02/24/2023 [id number] Vaccine ( season) 2025 11/26/2020, 10/29/2020 [facility]-Influenza Vaccine (#1) 2025 11/27/2019 [facility]-RSV Vaccine: 60+ Years o r (1 - 1-dose 75+ series) 11/14/2035 [facility]-Cervical Cancer Screening Discontinued [facility]-HPV/Cotest Discontinued 11/03/2000 [facility]-Pap Smear Discontinued 11/03/2000 [facility]-Zoster Vaccines Completed 03/04/2022, 10/20/2021 HPV Vaccines Aged Out No longer eligi ble based on patient's age to complete this topic [facility]-HIB Vaccines Aged Out No longer e ligible based on patient's age to complete this topic [facility]-Hepatitis A Vaccines Aged Out No longer eligible based on patient's age to complete this topic [facility]-IPV Vaccines Aged Out No longer e ligible based on patient's age to complete this topic [facility]-Rotavirus Vaccines Aged Out No lo nger eligible based on patient's age to complete this topic Procedures Procedure Name Priority Date/Time Associated Diagnosis Comments CYTO DATA CONVERSION Routine 11/03/2000 12:00 AM EST from Last 3 Months or Most Recently Relevant to Health Maintenance Results * Cytology (11/03/2000 12:00 AM EST) Specimen from vagina (specimen) 11/03/2000 11/06/2000 9:5 7 AM EST Narrative SUNQUEST - 11/07/2000 8:51 AM EST [facility] MR #: [id number] [facility] [address] [place] [place], [place] [address] 1960 (Age: 39) FW Collect Date: 11/03/2000 00:00 Receipt Date: 11/06/2000 09:57 Page 1 DEPARTMENT OF PATHOLOGY AND LABORATORY MEDICINE CYTOPATHOLOGY REPORT Email: [email or web address] ATTENDING MD/Practitioner: Farnaz Gonzalez MD Service: PAT Location: OUTS Reported: 11/07/2000 08:51 Collected: 11/03/2000 00:00 INTERPRETATION VAGINAL: WITHIN NORMAL LIMITS. SATISFACTORY FOR INTERPRETATION. Electronically Signed Out By KRISTINA King (ASCP) KRISTINA King (ASCP) Cervical cytology is a screening test primarily for squamous cancers and precursors and has associated false negative and positive results. New technologies such as liquid based sampling may decrease but will not eliminate all false negative results. Regular screening and follow-up of unexplained clinical signs and symptoms are recommended to minimize false negative results. Please see the ASCCP website (www.asccp.org) for followup recommendations. If HPV testing was requested, correlation with the results is suggested (please call Microbiology at [phone] for results). CLINICAL INFORMATION: Menstrual History: Post-hysterectomy Date of Last Menstrual Period: 95 Other Clinical Conditions: Specimen obtained on: 11/03/00 SPECIMEN DESCRIPTION: A: VAGINAL SMEARS: PAP STAIN ICD: V76.2 CERVIX, SPECIAL SCREENING FOR MALIGNANT NEOPLASM F: A; [id number] SCREEN SNOMED CODES: A; [id number] In cases where a pathologist has signed out the report, the service has been rendered in part by a resident. The signing pathologist has performed and is responsible for the reported pathologic evaluation. us Historical Provider LAB PATHOLOGY ORDERABLES Fin al Result SUNQUEST from Last 3 Months or Most Recently Relevant to Health Maintenance [place] [address] [place] [address] Care Teams Pathology Collector Relationship Specialty Start Date End Date Enma Fleming PA [address] [place] [address] PCP - General 01/15/21
--- OUTSIDE RECORDS SUMMARY | 2025-06-24 16:17 | XMS_ITS | Clinical Summary ---
Author Organization [facility] Address [address] [facility] [place] [address] Phone Care Team Providers Care Instrument Maker And Repairer Name Role Phone Unavailable Primary Care Provider Unavailabl e Social History Tobacco Use Types Packs/Day Years Used Date Smoking Tobacco: Never Assessed Comments Unknown Sex and Gender Information Value Date Recorded Sex Assigned at Not on file Legal Sex Female 1:49 PM EDT Gender Identity Not on file Sexual Orientation Not on file Plan of Treatment Health Maintenance Due Date Last Done Comments Annual Wellness Exam 11/14/1963 Hepatitis C Screening 1978 DTaP/TDaP/Td (1 - Tdap) 11/14/1979 Cervical Cancer Screening 1981 Pap Smear 1981 HPV/Pap Cotest 1990 Cologuard 2005 Colon Cancer Screening 2005 Colonoscopy 2005 FIT 2005 Sigmoidoscopy 2005 Virtual Colonography 2005 Pneumococcal Vaccine 50+ (1 of 1 - PCV) 2010 Breast Cancer Screening 02/24/2025 02/24/2023 COVID-19 Vaccine (3 - 2024-2 6 season) 2025 11/26/2020, 10/29/2020 Influenza Vaccine (#1) 2025 11/27/2019 Zoster Completed 03/04/2022, 10/20/2021 Hepatitis B Vaccine Aged Out No longe r eligible based on patient's age to complete this topic Meningococcal B Vaccine Aged Out No l onger eligible based on patient's age to complete this topic Procedures Procedure Name Priority Date/Time Associated Diagnosis Comments MM MAMMO DIGITAL GABRIEL SCREEN BILAT Routine 02/24/2023 10:48 AM EDT Encounter for screening mammogram for malignant neoplasm of breast from Last 3 Months or Most Recently Relevant to Health Maintenance Results * MM MAMMO DIGITAL GABRIEL SCREEN BILAT (02/24/2023 10:48 AM EDT) Anatomical Region Laterality Modality Breast Bilateral Mammography 03/14/2023 12:3 4 PM EDT Impressions 03/14/2023 12:34 PM EDT Negative ([id number]) ~ RECOMMENDATION: Routine screening mammogram in 1 year. ~ DISCLAIMER * Any patient with a palpable abnormality, unexplained by breast imaging, should be managed on clinical basis by the attending physician. * Breast imaging has a false negative rate of 15%. * The patient was notified by mail of the results of this examination. *The patient's information was entered into a reminder system with a target due date for the next mammogram, in accordance with the [employer] and the Society of Breast Imaging recommendations. Narrative 03/14/2023 12:34 PM EDT Procedure:MM MAMMO DIGITAL GABRIEL SCREEN BILAT ~ Reason for exam: screening, asymptomatic. Z12.31-Encounter for screening mammogram for malignant neoplasm of [id number] ~ MM MAMMO DIGITAL GABRIEL SCREEN BILAT Bilateral CC and MLO view(s) were taken. There are scattered fibroglandular densities. Prior study comparison: Compared with prior studies the most recent being none No mammographic evidence of malignancy. ~ Procedure Note Garry Bradshaw III, MD - 03/14/2023 Procedure:MM MAMMO DIGITAL GABRIEL SCREEN BILAT ~ Reason for exam: screening, asymptomatic. Z12.31-Encounter for screening mammogram for malignant neoplasm of [id number] ~ MM MAMMO DIGITAL GABRIEL SCREEN BILAT Bilateral CC and MLO view(s) were taken. There are scattered fibroglandular densities. Prior study comparison: Compared with prior studies the most recentbeing none No mammographic evidence of malignancy. ~ IMPRESSION: Negative ([id number]) ~ RECOMMENDATION: Routine screening mammogram in 1 year. ~ DISCLAIMER * Any patient with a palpable abnormality, unexplained by breast imaging, should be managed on clinical basis by the attending physician. * Breast imaging has a false negative rate of 15%. * The patient was notified by mail of the results of this examination. *The patient's information was entered into a reminder system with atarget due date for the next mammogram, in accordance with the [employer] and the Society of Breast Imaging recommendations. Karen Darling HEALTH SERVICES RN IMG MAMMOGRAPHY ORDERABLES Fin al Result from Last 3 Months or Most Recently Relevant to Health Maintenance Insurance O
--- NOTE | 2025-06-24 16:18 | MM_ITS ---
PROCEDURE INFORMATION: Exam: MG Bilateral Screening 3D Mammography Exam date and time: 06/24/2025 4:22 PM Age: 64 years old Clinical indication: Screening mammogram TECHNIQUE: Imaging protocol: Bilateral Screening tomosynthesis and 2D mammography including computer-aided detection (CAD) when performed. COMPARISON: 1. MG MM DIG MAMM DX UNILAT LT CAD 04/30/2024 1:41 PM 2. MG MM DIG SCREENING MAMM BI W/CAD 04/22/2024 4:23 PM 3. MG MM MAMMO DIGITAL GABRIEL SCREEN BILAT 02/24/2023 10:24 AM 4. MG MM DIG SCREENING MAMM BI W/CAD 02/24/2020 4:56 PM FINDINGS: MAMMOGRAPHY: Breast composition: There are scattered areas of fibroglandular density. Mass: None. Architectural distortion: No new or suspicious architectural distortion. Calcifications: No new or suspicious calcifications are present Asymmetric density: No new or suspicious asymmetric density is present Skin thickening: None. Axillary adenopathy: None. IMPRESSION: No mammographic evidence of malignancy. Recommend annual screening mammography unless otherwise clinically indicated. ASSESSMENT: BI-RADS category 1: Negative.
--- OUTSIDE RECORDS SUMMARY | 2025-06-24 16:18 | XMS_ITS | Encounter Summary ---
Author Organization [facility] Address [address] [place] [address] Care Team Providers Care Jigger Machine Operator Name Role Phone Karen Darling DAFNE Primary Care Provider [phone] Encounter Details Date Type Department Care Team (Latest Contact Info) Description 05/19/2025 Travel Social History Tobacco Use Types Packs/Day Years Used Date Smoking Tobacco: Never Passive Smoke Exposure: Never Smokeless Tobacco: Never Alcohol Use Standard Drinks/Week Comments Not Currently [...] or training? Not on file Preferred Language Yoruba 12/04/2023 Comments Unknown Sex and Gender Information Value Date Recorded Sex Assigned at Female 11/04/2024 9:33 AM EST Legal Sex Female 12:28 PM EDT Gender Identity Not on file Sexual Orientation Not on file documented as of this encounter Plan of Treatment Upcoming Encounters Date Type Department Care Team (Late st Contact Info) Description 07/23/2025 8:00 AM EST Office Visit [facility] PULMONARY & CRITICAL CARE MEDICINE [address] [place] [address] 07/23/2025 9:00 AM EST Office Visit [facility] PULMONARY & CRITICAL CARE MEDICINE [address] [place] [address] Kevin Schrader MD [address] [place], [place] [id number] 11/17/2025 9:30 AM EDT Ancillary Procedure [facility] CARDIOLOG[facility] [address] [place] [address] 11/17/2025 11:30 AM EDT Office Visit [facility] CARDIOLOG[facility] [address] [place] [address] Charis Vazquez MD [address] [place] [address] documented as of this encounter Visit Diagnoses Not on filedocumented in this encounter Care Teams Jigger Machine Operator Relationship Specialty Start Date End Date Karen Darling APRN [address] [place] [address] PCP - General Nurse Practitioner 09/22/23 documented as of this encounter
--- OUTSIDE RECORDS SUMMARY | 2025-06-24 16:18 | XMS_ITS | Data Portability ---
Author Organization [facility] [place] - [place] Address [address] [place] [address] Assessment No assessment recorded. Plan of Treatment Reminders Order Date Submit Date Provider Last Modified By Organization Details Last Modified Time Details Appointments FOLLOW UP 30 2025 08:00A M Karolina Darling APRN Not available Not available Not available Lab HbA1c (hemoglob in A1c), blood [address], [id number], 06/06/2025 09:03:16 rapid SARS CoV 2 Ag, QL, IA, upper respirato ry specimen 2024 025 [facility] [address] [place] [address], [phone], 05/31/2025 11:54:22 rapid flu (A+B) 2024 [email or web address] [place] [address], [phone], 05/31/2025 11:54:22 HbA1c (hemoglob in A1c), blood [email or web address], [address], 02/14/2025 08:31:37 TSH + free T4, serum 2024 025 [facility] [address] [place], [address], 02/15/2025 08:12:13 lipid panel, serum 2024 025 [facility] [address] [place] [address], [id number], 10/19/2024 01:06:25 CBC w/ auto diff 2024 025 [facility] [address] [place] [address], [id number], 10/19/2024 01:06:24 CMP, serum or plasma 2024 025 [facility] [address] [place] [address], [address], 10/19/2024 01:06:24 HbA1c (hemoglob in A1c), blood [address], [address], 10/16/2024 08:53:39 urinalysi s complete, reflex culture 2024 025 [facility] [address] [place] [address], [address], 10/19/2024 01:06:25 TSH + free T4, serum 2024 025 [facility] [address] [place] [address], [address], 10/19/2024 01:06:23 vitamin D, 25-hydrox y, total, serum 2024 025 [facility]), [address] [place] [address], [address], 10/19/2024 01:06:26 HbA1c (hemoglob in A1c), blood [email or web address] [place] [address], [address] [place] [address], [phone], 07/17/2024 09:46:23 TSH, ultra-sen sitive, serum 2023 024 [facility], [address] [place] [address], [place], [address], 07/18/2024 05:07:26 Referral None recorded. Procedures None recorded. Surgeries None recorded. Imaging MAMMO, screening , digital, bilateral - Late June please [address] ([facility] [address], [place], [address], 06/13/2025 09:15:17 Medication Orders Vitamin D3 50 mcg (2,000 unit) capsule 2024 025 [facility], [address] [place] [address], [address], 06/10/2025 15:35:06 Wegovy 2.4 mg/0.75 mL subcutane ous pen injector 2024 025 [facility], [address] [place] [address], [address], 06/06/2025 09:24:43 scopolami ne 1 mg over 3 days transderm al patch 2024 025 [facility], [address] [place] [address], [address], 06/06/2025 14:41:52 Wegovy 1.7 mg/0.75 mL subcutane ous pen injector 2024 025 [facility], [address] [place] [address], [address], 06/06/2025 09:24:42 fluticaso ne propionat e 50 mcg/actua tion nasal spray,earl pension 2024 025 [facility], [address] [place] [address], [address], 05/31/2025 12:08:42 cetirizin e 10 mg tablet 2024 025 [facility], [address] [place] [address], [address], 05/31/2025 12:08:41 Wegovy 1.7 mg/0.75 mL subcutane ous pen injector [email or web address], [address] [place] [address], [address], 06/06/2025 08:56:40 ondansetr on 4 mg disintegr ating tablet 2023 025 [facility], [address] [place] [address], [address], 10/16/2024 09:05:08 Patient TargetsNo targets recorded. Patient InstructionsNo instructions recorded. Reason for Referral None Reported. Results Created Date Observation Date Name Description Value Unit Range Abnormal Flag Note LastModifiedBy Organization Detail LastModifiedTime 07/17/2007/18/2024 TSH RFX ON ABNOR MAL TO FREE T4 TSH 0.103 uIU/m L 0.450- 4.500 below low normal Not Available [facility] ([facility]) [address] [place], [address], 07/18/2024 05:07:26 07/17/2007/18/2024 TSH RFX ON ABNOR MAL TO FREE T4 T4,free (direct) 1.64 NG/dL 0.82-1 .77 normal Not Available [facility] ([facility]) [address] [place], [address], 07/18/2024 05:07:26 07/17/20 24 07/17/2024 HbA1c (hemo globi n A1c), blood HbA1c 5.5 Not Available [address], [address], 07/17/2024 09:40:04 10/16/1910/17/2024 TSH+F REE T4 TSH 0.063 uIU/m L 0.450- 4.500 below low normal Not Available [facility] ([facility]) [address] [place], [address], 10/19/2024 01:06:23 10/16/1910/17/2024 TSH+F REE T4 T4,free(dire ct) 1.83 NG/dL 0.82-1 .77 above high normal Not Available [facility] ([facility]) [address] [place], [address], 10/19/2024 01:06:23 10/16/19 25 10/17/2024 CBC WITH DIFFE RENTI AL/PL ATELE T WBC 6.9 x10e3 /uL 3.4-10 .8 normal Not Available [facility] ([facility]) [address] [place], [address], 10/19/2024 01:06:24 10/16/19 25 10/17/2024 CBC WITH DIFFE RENTI AL/PL ATELE T RBC 5.53 x10e6 /uL 3.77-5 .28 above high normal Not Available [facility] ([facility]) [address] [place], [address], 10/19/2024 01:06:24 10/16/19 25 10/17/2024 CBC WITH DIFFE RENTI AL/PL ATELE T hemoglobin 15.2 g/dL 11.1-1 5.9 normal Not Available [facility] ([facility]) [address] [place], [address], 10/19/2024 01:06:24 10/16/1910/17/2024 CBC WITH DIFFE RENTI AL/PL ATELE T hematocrit 45.8 % 34.0-4 6.6 normal Not Available [facility] ([facility]) [address] [place], [address], 10/19/2024 01:06:24 10/16/1910/17/2024 CBC WITH DIFFE RENTI AL/PL ATELE T MCV 83 fL 79-97 normal Not Available [facility] ([facility]) [address] [place], [address], 10/19/2024 01:06:24 10/16/1910/17/2024 CBC WITH DIFFE RENTI AL/PL ATELE T MCH 27.5 pg 26.6-3 3.0 normal Not Available [facility] ([facility]) [address] [place], [address], 10/19/2024 01:06:24 10/16/1910/17/2024 CBC WITH DIFFE RENTI AL/PL ATELE T MCHC 33.2 g/dL 31.5-3 5.7 normal Not Available [facility] ([facility]) [address] [place], [address], 10/19/2024 01:06:24 10/16/1910/17/2024 CBC WITH DIFFE RENTI AL/PL ATELE T RDW 12.9 % 11.7-1 5.4 Not Available [facility] ([facility]) [address] [place], [address], 10/19/2024 01:06:24 10/16/19 25 10/17/2024 CBC WITH DIFFE RENTI AL/PL ATELE T platelets 281 x10e3 /uL 150-45 0 normal Not Available [facility] ([facility]) [address] [place], [address], 10/19/2024 01:06:24 10/16/19 25 10/17/2024 CBC WITH DIFFE RENTI AL/PL ATELE T neutrophils 69 % not estab. normal Not Available [facility] ([facility]) [address] [facility], [place], [address], 10/19/2024 01:06:24 10/16/19 25 10/17/2024 CBC WITH DIFFE RENTI AL/PL ATELE T lymphs 19 % not estab. normal Not Available [facility] ([facility]) [address] [facility], [place], [address], 10/19/2024 01:06:24 10/16/19 25 10/17/2024 CBC WITH DIFFE RENTI AL/PL ATELE T monocytes 7 % not estab. normal Not Available [facility] ([facility]) [address] [facility], [place], [address], 10/19/2024 01:06:24 10/16/19 25 10/17/2024 CBC WITH DIFFE RENTI AL/PL ATELE T eos 5 % not estab. normal Not Available [facility] ([facility]) [address] [facility], [place], [address], 10/19/2024 01:06:24 10/16/19 25 10/17/2024 CBC WITH DIFFE RENTI AL/PL ATELE T basos 0 % not estab. 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 0 normal Not Available [facility] ([facility]) [address] [place], [address], 10/19/2024 01:06:24 10/16/19 25 10/17/2024 CBC WITH DIFFE RENTI AL/PL ATELE T lymphs (absolute) 1.3 x10e3 /uL 0.7-3. 1 normal Not Available [facility] ([facility]) [address] [place], [address], 10/19/2024 01:06:24 10/16/19 25 10/17/2024 CBC WITH DIFFE RENTI AL/PL ATELE T monocytes(ab solute) 0.5 x10e3 /uL 0.1-0. 9 normal Not Available [facility] ([facility]) [address] [place], [address], 10/19/2024 01:06:24 10/16/19 25 10/17/2024 CBC WITH DIFFE RENTI AL/PL ATELE T eos (absolute) 0.3 x10e3 /uL 0.0-0. 4 normal Not Available [facility] ([facility]) [address] [place], [address], 10/19/2024 01:06:24 10/16/19 25 10/17/2024 CBC WITH DIFFE RENTI AL/PL ATELE T baso (absolute) 0.0 x10e3 /uL 0.0-0. 2 normal Not Available [facility] ([facility]) [address] [place], [address], 10/19/2024 01:06:24 10/16/19 25 10/17/2024 CBC WITH DIFFE RENTI AL/PL ATELE T immature granulocytes 0 % not estab. Not Available [facility] ([facility]) [address] [place], [address], 10/19/2024 01:06:24 10/16/19 25 10/17/2024 CBC WITH DIFFE RENTI AL/PL ATELE T immature grans (abs) 0.0 x10e3 /uL 0.0-0. 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 METAB OLIC PANEL (14) glucose 90 mg/dL 70-99 normal Not Available [facility] ([facility]) [address] [facility], [place], [address], 10/19/2024 01:06:24 10/16/19 25 10/17/2024 COMP. METAB OLIC PANEL (14) BUN 16 mg/dL 8-27 normal Not Available [facility] ([facility]) [address] [facility], [place], [address], 10/19/2024 01:06:24 10/16/19 25 10/17/2024 COMP. METAB OLIC PANEL (14) creatinine 1.01 mg/dL 0.57-1 .00 above high normal Not Available [facility] ([facility]) [address] [facility], [place], [address], 10/19/2024 01:06:24 10/16/19 25 10/17/2024 COMP. METAB OLIC PANEL (14) eGFR 63 mL/mi n/1.7 3 >59 normal Not Available [facility] ([facility]) [address] [place], [address], 10/19/2024 01:06:24 10/16/19 25 10/17/2024 COMP. METAB OLIC PANEL (14) BUN/creatini ne ratio 16 12-28 normal Not Available [facility] ([facility]) [address] [place], [address], 10/19/2024 01:06:24 10/16/19 25 10/17/2024 COMP. METAB OLIC PANEL (14) sodium 139 mmol/ L 134-14 4 normal Not Available [facility] ([facility]) [address] [place], [address], 10/19/2024 01:06:24 10/16/19 25 10/17/2024 COMP. METAB OLIC PANEL (14) potassium 4.3 mmol/ L 3.5-5. 2 normal Not Available [facility] ([facility]) [address] [place], [address], 10/19/2024 01:06:24 10/16/19 25 10/17/2024 COMP. METAB OLIC PANEL (14) chloride 102 mmol/ L 96-106 normal Not Available [facility] ([facility]) [address] [place], [address], 10/19/2024 01:06:24 10/16/19 25 10/17/2024 COMP. METAB OLIC PANEL (14) carbon dioxide, total 23 mmol/ L 20-29 normal Not Available [facility] ([facility]) [address] [place], [address], 10/19/2024 01:06:24 10/16/19 25 10/17/2024 COMP. METAB OLIC PANEL (14) calcium 10.1 mg/dL 8.7-10 .3 normal Not Available [facility] ([facility]) [address] [facility] [place], [address], 10/19/2024 01:06:24 10/16/19 25 10/17/2024 COMP. METAB OLIC PANEL (14) protein, total 7.7 g/dL 6.0-8. 5 normal Not Available [facility] ([facility]) [address] [facility] [place], [address], 10/19/2024 01:06:24 10/16/19 25 10/17/2024 COMP. METAB OLIC PANEL (14) albumin 4.5 g/dL 3.9-4. 9 normal Not Available [facility] ([facility]) [address] [facility] [place], [address], 10/19/2024 01:06:24 10/16/19 25 10/17/2024 COMP. METAB OLIC PANEL (14) globulin, total 3.2 g/dL 1.5-4. 5 Not Available [facility] ([facility]) [address] [facility] [place], [address], 10/19/2024 01:06:24 10/16/19 25 10/17/2024 COMP. METAB OLIC PANEL (14) bilirubin, total 0.4 mg/dL 0.0-1. 2 normal Not Available [facility] ([facility]) [address] [facility] [place], [address], 10/19/2024 01:06:24 10/16/19 25 10/17/2024 COMP. METAB OLIC PANEL (14) alkaline phosphatase 147 IU/L 44-121 above high normal Not Available [facility] ([facility]) [address] [facility] [place], [address], 10/19/2024 01:06:24 10/16/19 25 10/17/2024 COMP. METAB OLIC PANEL (14) AST (SGOT) 18 IU/L 0-40 normal Not Available [facility] ([facility]) [address], [place], [address], 10/19/2024 01:06:24 10/16/19 25 10/17/2024 COMP. METAB OLIC PANEL (14) ALT (SGPT) 15 IU/L 0-32 normal Not Available [facility] ([facility]) [address], [place], [address], 10/19/2024 01:06:24 10/16/19 25 10/17/2024 UA WITH CULTU RE REFLE X specific gravity 1.016 1.005- 1.030 normal Not Available [facility] ([facility]) [address] [facility], [place], [address], 10/19/2024 01:06:25 10/16/19 25 10/17/2024 UA WITH CULTU RE REFLE X pH 5.5 5.0-7. 5 normal Not Available [facility] ([facility]) [address] [facility], [place], [address], 10/19/2024 01:06:25 10/16/19 25 10/17/2024 UA WITH CULTU RE REFLE X urine-color Yellow yellow Not Available [facility] ([facility]) [address] [facility], [place], [address], 10/19/2024 01:06:25 10/16/19 25 10/17/2024 UA WITH CULTU RE REFLE X appearance Clear clear Not Available [facility] ([facility]) [address] [facility], [place], [address], 10/19/2024 01:06:25 10/16/1910/17/2024 UA WITH CULTU RE REFLE X WBC esterase 1+ negati ve abnormal Not Available [facility] ([facility]) [address] [facility], [place], [address], 10/19/2024 01:06:25 0210/17/2024 UA WITH CULTU RE REFLE X protein Negati ve negati ve/tra ce Not Available [facility] ([facility]) [address] [place], [address], 10/19/2024 01:06:25 10/16/19 25 10/17/2024 UA WITH CULTU RE REFLE X glucose Negati ve negati ve Not Available [facility] ([facility]) [address] [place], [address], 10/19/2024 01:06:25 10/16/1910/17/2024 UA WITH CULTU RE REFLE X ketones Negati ve negati ve Not Available [facility] ([facility]) [address] [place], [address], 10/19/2024 01:06:25 10/16/1910/17/2024 UA WITH CULTU RE REFLE X occult blood Negati ve negati ve Not Available [facility] ([facility]) [address] [place], [address], 10/19/2024 01:06:25 10/16/1910/17/2024 UA WITH CULTU RE REFLE X bilirubin Negati ve negati ve Not Available [facility] ([facility]) [address] [place], [address], 10/19/2024 01:06:25 10/16/1910/17/2024 UA WITH CULTU RE REFLE X urobilinogen ,semi-qn 0.2 mg/dL 0.2-1. 0 normal Not Available [facility] ([facility]) [address] [place], [address], 10/19/2024 01:06:25 10/16/19 25 10/17/2024 UA WITH CULTU RE REFLE X nitrite, urine Positi ve negati ve abnormal Not Available [facility] ([facility]) [address] [place], [address], 10/19/2024 01:06:25 10/16/19 25 10/17/2024 UA WITH CULTU RE REFLE X microscopic examination See below: Inocencio noriega c was indic ated and was perfo rmed. Not Available [facility] ([facility]) [address] [facility], [place], [address], 10/19/2024 01:06:25 10/16/19 25 10/17/2024 UA WITH CULTU RE REFLE X WBC 0-5 /hpf 0 - 5 Not Available [facility] ([facility]) [address] [facility], [place], [address], 10/19/2024 01:06:25 10/16/19 25 10/17/2024 UA WITH CULTU RE REFLE X RBC None seen /hpf 0 - 2 Not Available [facility] ([facility]) [address] [facility], [place], [address], 10/19/2024 01:06:25 10/16/19 25 10/17/2024 UA WITH CULTU RE REFLE X epithelial cells (non renal) 0-10 /hpf 0 - 10 Not Available [facility] ([facility]) [address] [facility], [place], [address], 10/19/2024 01:06:25 10/16/19 25 10/17/2024 UA WITH CULTU RE REFLE X epithelial cells (renal) 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 Not Available [facility] ([facility]) [address] [facility], [place], [address], 10/19/2024 01:06:25 10/16/1910/17/2024 UA WITH CULTU RE REFLE X casts None seen /lpf none seen Not Available [facility] ([facility]) [address] [facility], [place], [address], 10/19/2024 01:06:25 10/16/19 25 10/17/2024 UA WITH CULTU RE REFLE X cast type 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 Not Available [facility] ([facility]) [address] [facility], [place], [address], 10/19/2024 01:06:25 10/16/19 25 10/17/2024 UA WITH CULTU RE REFLE X crystals 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 Not Available [facility] ([facility]) [address] [facility], [place], [address], 10/19/2024 01:06:25 10/16/19 25 10/17/2024 UA WITH CULTU RE REFLE X trichomonas 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 Not Available [facility] ([facility]) [address] [facility], [place], [address], 10/19/2024 01:06:25 10/16/19 25 10/19/2024 UA WITH CULTU RE REFLE X urine culture, routine Final report abnormal Not Available [facility] ([facility]) [address] [facility], [place], [address], 10/19/2024 01:06:25 10/16/1910/19/2024 UA WITH CULTU RE REFLE X result 1 Escher ichia coli abnormal Cefaz jeannie with an CHAR <=16 predi cts susce ptibi lity to the oral agent s cefac bandar, cefdi mamadou, cefpo doxim e, cefpr ozil, cefur oxime , cepha lexin , and lorac arbef when used for thera py of uncom plica kat urina ry tract infec tions due to E. coli, Klebs iella pneum oniae , and Prote us mirab ilis. Great er than 100,0 00 colon y formi ng units per mL Not Available [facility] ([facility]) [address] [facility], [place], [address], 10/19/2024 01:06:25 10/16/1910/19/2024 UA WITH CULTU RE REFLE X antimicrobia l susceptibili ty Commen t S = Susce ptibl e; I = Inter media te; R = Resis tant P = Posit carline; N = Negat carline MICS are expre ssed in micro grams per mL Antib iotic RSLT# 1 RSLT# 2 RSLT# 3 RSLT# 4 Amoxi cilli n/Cla vulan ic Acid S Ampic illin I Cefaz jeannie S Cefep danie S Cefox itin S Cefpo doxim e S Ceftr iaxon e S Cipro floxa sierra S Ertap enem S Genta micin S Levof loxac in S Merop enem S Nitro furan toin S Piper acill in/Ta zobac menezes S Tetra cycli ne R Tobra mycin S Trime thopr im/Giron lfa S Not Available [facility] ([facility]) [address] [place], [address], 10/19/2024 01:06:25 10/16/19 25 10/17/2024 LIPID PANEL cholesterol, total 160 mg/dL 100-19 9 normal Not Available [facility] ([facility]) [address] [place], [address], 10/19/2024 01:06:25 10/16/19 25 10/17/2024 LIPID PANEL triglyceride s 92 mg/dL 0-149 normal Not Available [facility] ([facility]) [address] [place], [address], 10/19/2024 01:06:25 10/16/19 25 10/17/2024 LIPID PANEL HDL cholesterol 71 mg/dL >39 normal Not Available [facility] ([facility]) [address] [place], [address], 10/19/2024 01:06:25 10/16/19 25 10/17/2024 LIPID PANEL VLDL cholesterol jessica 17 mg/dL 5-40 Not Available [facility] ([facility]) [address] [place], [address], 10/19/2024 01:06:25 10/16/19 25 10/17/2024 LIPID PANEL LDL chol calc ([facility]) 72 mg/dL 0-99 Not Available [facility] ([facility]) [address] [place], [address], 10/19/2024 01:06:25 10/16/19 25 10/17/2024 LIPID PANEL LDL calc 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 The Endoc rine Socie ty went on to furth er defin e vitam in D insuf ficie ncy as a level betwe en 21 and 29 ng/mL (2). 1. IOM (Inst itute of Medic ine). 2009. Ajita ry refer ence intak es for calci um and D. Erin chapa [place]: The Natio nal [facility] Press . 2. Grecia mendoza [place], Janeth hopkins [place], Gayathri off-F errar i AREVALO, et al. Evalu ation , treat ment, and preve ntion of vitam in D defic iency : an Endoc rine Socie ty clini jessica pract ice guide line. JCEM. 2010; 96(7) :1911 -30. Not Available [facility] ([facility]) [address] [facility], [place], [address], 10/19/2024 01:06:26 10/16/19 25 10/16/2024 HbA1c (hemo globi n A1c), blood HbA1c 5.8 Not Available [address], [address], 10/16/2024 08:31:40 02/15/20 25 02/15/2025 TSH+F REE T4 TSH 0.038 uIU/m L 0.450- 4.500 below low normal Not Available [facility] ([facility]) [address] [facility], [place], [address], 02/15/2025 08:12:13 02/15/2002/15/2025 TSH+F REE T4 T4,free(dire ct) 1.60 NG/dL 0.82-1 .77 normal Not Available [facility] ([facility]) [address] [facility], [place], [address], 02/15/2025 08:12:13 02/15/20 25 02/14/2025 HbA1c (hemo globi n A1c), blood HbA1c 5.4 Not Available [address], [address], 02/14/2025 08:05:24 05/31/20 25 05/31/2025 rapid SARS CoV 2 Ag, QL, [place], upper respi rator y speci men SARS CoV Ag negati ve Not Available [address], [address], 05/31/2025 11:32:24 05/31/20 25 05/31/2025 rapid flu (A+B) Flu A negati ve Not Available [address], [address], 05/31/2025 11:32:29 05/31/20 25 05/31/2025 rapid flu (A+B) Flu B negati ve Not Available [address], [address], 05/31/2025 11:32:29 06/06/20 25 06/06/2025 HbA1c (hemo globi n A1c), blood HbA1c 5.3 Not Available [address], [address], 06/06/2025 08:07:52 11/12/19 25 11/11/2024 US, doppl er echoc ardio gram No observ ation record ed. [email or web address] [facility] [place], [address], 11/11/2024 16:44:35 Result Notes None recorded. Problems Name Problem SNOMED Code Status Onset Date Resolution Date Notes Provider Name and Address Organization Details Recorded Time Urinary tract infectio us disease 92460994 Completed 201805/23/2022 Problem Code: N39.0; Problem Code Type: ICD-10; RAVINDER MYNEAR null, [employer] 2 17:30:59 Urinary tract infectio us disease 00870679 Completed 201902/25/2020 Problem Code: N39.0; Problem Code Type: ICD-10; RAVINDER MYNEAR null, [employer] 2 17:30:59 Disorder of upper respirat ory system 288205541 Completed 201902/25/2020 Problem Code: J06.9; Problem Code Type: ICD-10; Not Available [facility] 2 21:22:54 Hypothyr oidism 96483796 Active 2019 Not Available [facility] 2 21:22:53 Hyperten sive disorder 49075375 Active 2019 Problem Code: I10; Problem Code Type: ICD-10; Not Available [facility] 2 21:22:53 Undiffer entiated inflamma tory polyarth ritis 989097693 Completed 201905/23/2022 Problem Code: M13.0; Problem Code Type: ICD-10; RAVINDER MYNEAR null, [employer] 2 17:30:59 Finding of body mass index 664616263 Completed 201909/17/2020 Problem Code: Z68.41; Problem Code Type: ICD-10; Not Available [facility] 2 21:22:57 Acute maxillar y sinusiti s 26026154 Completed 201902/25/2020 Problem Code: J01.00; Problem Code Type: ICD-10; Not Available [facility] 2 21:22:53 Dysuria 31392520 Completed 201902/25/2020 Problem Code: R30.0; Problem Code Type: ICD-10; Karen Darling, TRANSITIONAL NURSE [address] [place], [address] , [employer] 5 08:46:29 Vitamin D deficien 70520072 Completed 201905/23/2022 Problem Code: E55.9; Problem Code Type: ICD-10; Karen Darling, TRANSITIONAL NURSE [address] [place], [address] , [employer]. 5 08:58:38 Low back pain 400276107 Completed 201905/23/2022 Problem Code: M54.5; Problem Code Type: ICD-10; RAVINDER pedro, [employer]. 2 17:30:59 General examinat ion of patient Completed 201905/23/2022 RAVINDER pedro, [employer]. 2 17:30:59 Screenin g mammogra phy Completed 201905/31/2020 Problem Code: Z12.31; Problem Code Type: ICD-10; Not Available [facility] 2 21:22:55 Finding of body mass index 863285686 Active 2019 Problem Code: Z68.41; Problem Code Type: ICD-10; Not Available [facility] 2 21:22:56 Sampling of vagina for Papanico laou smear Completed 201909/17/2020 Problem Code: Z01.419; Problem Code Type: ICD-10; Not Available [facility] 2 21:22:55 Herpes zoster auricula [facility] 31794998 Completed 201905/23/2022 Problem Code: B02.8; Problem Code Type: ICD-10; RAVINDER pedro, [employer] 2 17:30:59 Herpes zoster 3902964 Completed 201905/23/2022 Problem Code: B02.9; Problem Code Type: ICD-10; RAVINDER WOODY null, [employer] 2 17:30:59 Generali zed anxiety disorder 10959680 Completed 201905/23/2022 Problem Code: F41.1; Problem Code Type: ICD-10; RAVINDER WOODY null, [employer] 2 17:30:59 Autoimmu ne thyroidi tis 62187343 Active 2019 Problem Code: E06.3; Problem Code Type: ICD-10; Not Available [facility] 21:22:53 New daily persiste nt headache [id number] 9105 Completed 201905/23/2022 Problem Code: G44.52; Problem Code Type: ICD-10; RAVINDER pedro, [employer] 2 17:30:59 Localize d edema 483607633 Completed 201905/23/2022 Problem Code: R60.0; Problem Code Type: ICD-10; RAVINDER pedro, [employer] 2 17:30:59 Acute sinusiti s 03522544 Completed 202005/23/2022 Problem Code: J01.90; Problem Code Type: ICD-10; Karen Darling, DAFNE [address] [place], [address] , [employer] 5 08:54:52 Acute serous otitis media of bilatera l ears 50674594077 71268 Completed 202005/23/2022 Problem Code: H65.03; Problem Code Type: ICD-10; RAVINDER WOODY null, [employer] 2 17:30:59 Acute sinusiti s 74643097 Completed 202006/03/2021 Problem Code: J01.90; Problem Code Type: ICD-10; Karen Darling APRN [address] [facility], [place], [address] , [employer] 5 08:54:52 Acute sinusiti s 84936837 Completed 202006/03/2021 Problem Code: J01.90; Problem Code Type: ICD-10; Karen Darling APRN [address] [facility], [place], [address] , [employer] 5 08:54:52 Acute sinusiti s 82748878 Completed 202006/03/2021 Problem Code: J01.90; Problem Code Type: ICD-10; Karen Darling APRN [address] [facility], [place], [address] , [employer] 5 08:54:52 Dysuria 05586197 Completed 202005/23/2022 Problem Code: R30.0; Problem Code Type: ICD-10; Karen Darling APRN [address] [place], [address] , [employer] 5 08:46:29 Negative dysphoto psia 810252690 Completed 202005/23/2022 Problem Code: H53.8; Problem Code Type: ICD-10; RAVINDER pedro, [employer] 2 17:30:59 History of sexually transmit kat disease 599835355 Completed 202105/23/2022 Problem Code: Z86.19; Problem Code Type: ICD-10; RAVINDER pedro, [employer]. 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 5 08:51:21 Body mass index 30+ - obesity 789728772 Active 2024 Karen Darling APRN [address] [place] [address], [address] [place] [address] , [employer] 5 14:09:04 Acute sinusiti s 51941733 Active 2024 Problem Code: J01.90; Problem Code Type: ICD-10; Karen Darling APRN [address] [place] [address], [address] [place] [address] , [employer] 5 08:54:52 Nasal sinus pressure sensatio n Active 2024 ORTEGA Jett [address] [place] [address], [address] [place] [address] , [employer] 5 11:43:29 Vitamin D deficien cy 43225224 Active 2024 Problem Code: E55.9; Problem Code Type: ICD-10; Karen Darling APRN [address] [place] [address], [address] [place] [address] , [employer] 5 08:58:38 Motion sickness 57893562 Active 2024 Karen Darling APRN [address] [place] [address], [address] [place] [address] , [employer] 5 14:09:04 Notes:*Problem Name: Vaginit is, vulvitis and vulvovaginitis in diseases classified elsewhere *Problem Status: Acute *Comments: *Problem Code: N77.1 *Problem Code Type: ICD-10 *Note Date: 01/24/2020 *Problem Name: Insect bite (nonvenomous) of unspecified shoulder, initial encounter *Problem Status: Chronic *Comments: *Problem Code: S40.269A *Problem Code Type: ICD-10 *Note Date: 07/07/2021 Problem Notes None recorded. Procedures Surgical History Date Name Laterality Status Provider Name and Address Organization Details Recorded Time 04/30/20 24 Most Recent Mammogram completed RAVINDER WOODY [employer]. 07/17/2024 09:39:13 07/27/20 19 appendectomy completed Not Available [facility] 05/10/2022 22:56:06 07/27/20 19 cholecystectomy completed Not Available [facility] 05/10/2022 22:56:07 07/27/20 19 hysterectomy completed Not Available [facility] 05/10/2022 22:56:08 hand repair completed [facility] [employer] 01/20/2023 16:53:58 foot repair completed [facility] [employer] 01/20/2023 16:54:07 repair of shoulder completed [facility] [employer] 01/20/2023 16:54:13 Imaging Results None recorded. Procedure Notes None recorded. Medical Equipment None Reported. Allergies Allergen ID Allergen Name Allergen Category Reaction Reaction Severity Criticality Documentation Date Start Date Code Code System Note Provider Name and Address Organization Details Recorded Time 53185 Ceclor medicatio n Not available Not available Not available 05/10/202287968 5 RxNorm Not Available [facility] 22:54:21 15236 Paxlovid medicatio n vomiting mild low 10/11/2022 Karen Darling, TRANSITIONAL NURSE [address] [place] [address], [phone] , [facility] [employer] 17:27:49 Medications Name Sig Start Date Stop Date Status Note LastModified by Organization Details LastModified Time Prescriptio n - Renewal 06/22 completed Not Available Not Available Not Available amoxicillin 500 mg capsule TAKE 1 CAPSULE EVERY 8 HOURS FOR 10 DAYS 09/28 completed Not Available Not Available Not Available levothyroxi ne 137 mcg tablet TAKE ONE TABLET BY MOUTH EVERY DAY IN THE MORNING FOR thyroid 10/21 completed Not Available Not Available Not Available albuterol sulfate 2.5 mg/3 mL (0.083 %) solution for nebulizatio n Inhale 3 mL 3 times a day by nebulizat ion route as needed. active Not Available Not Available No t Available cetirizine 10 mg tablet TAKE 1 TABLET BY MOUTH EVERY DAY FOR 30 DAYS active Not Available Not Available No t Available azithromyci n 250 mg tablet TAKE 2 TABLETS BY MOUTH ON DAY 1, THEN TAKE 1 TABLET DAILY ON DAYS 2-5 active Not Available Not Available No t Available benzonatate 200 mg capsule Take 1 capsule 3 times a day by oral route as needed. 11/30 completed Not Available Not Available Not Available valacyclovi r 1 gram tablet take 1 tablet (1,000 mg) by oral route 3 times per day for 7 days 07/07 completed Not Available Not Available Not Available meloxicam 15 mg tablet TAKE ONE TABLET BY MOUTH EVERY DAY NEEDED FOR arthritis 10/16 completed Not Available Not Available Not Available phenazopyri dine 200 mg tablet TAKE ONE TABLET BY MOUTH THREE TIMES DAILY NEEDED FOR urinary pain 07/17 completed Not Available Not Available Not Available prednisone 20 mg tablet Take 1 tablet 3 times a day by oral route for 3 days. 09/08 completed Not Available Not Available Not Available pseudoephed rine-guaife nesin ER 60 mg-600 mg tablet,exte nd release 12hr Take 2 tablets by mouth every 12 hours as needed, for congestio n. 07/17 completed Not Available Not Available Not Available meclizine 12.5 mg tablet take 2 tablets (25 mg) by oral route 3 times per day as needed for dizzyness 06/03 completed Not Available Not Available Not Available metronidazo le 500 mg tablet take 1 tablet (500 mg) by oral route 2 times per day 02/18 completed Not Available Not Available Not Available valacyclovi r 500 mg tablet 01/20 completed Not Available Not Available Not Available ciprofloxac in 500 mg tablet TAKE ONE TABLET BY MOUTH EVERY TWELVE HOURS FOR 7 DAYS FOR uti 02/14 completed Not Available Not Available Not Available omeprazole 40 mg capsule,del ayed release TAKE ONE CAPSULE BY MOUTH EVERY DAY 09/15 completed Not Available Not Available Not Available liothyronin e 5 mcg tablet TAKE ONE TABLET BY MOUTH TWICE DAILY active Not Available Not Available No t Available levothyroxi ne 100 mcg tablet 08/17 completed Not Available Not Available Not Available levothyroxi ne 88 mcg tablet take 1 tablet (88 mcg) by oral route once daily 11/12 completed Not Available Not Available Not Available meclizine 25 mg tablet TAKE ONE TABLET BY MOUTH EVERY 8 HOURS 07/17 completed Not Available Not Available Not Available phenazopyri dine 100 mg tablet TAKE ONE TABLET BY MOUTH THREE TIMES DAILY FOR TWO DAYS 04/10 completed Not Available Not Available Not Available benzonatate 100 mg capsule TAKE 1 CAPSULE 3 TIMES EACH DAY NEEDED FOR COUGH 09/28 completed Not Available Not Available Not Available doxycycline monohydrate 100 mg capsule Take 1 capsule twice a day by oral route with meal(s) for 10 days. 04/15 completed Not Available Not Available Not Available triamcinolo ne acetonide 40 mg/mL suspension for injection Take 1 mL by injection route. 07/17 completed Not Available Not Available Not Available pantoprazol e 40 mg tablet,merline yed release TAKE ONE TABLET BY MOUTH ONCE DAILY FOR reflux active Not Available Not Available No t Available levothyroxi ne 125 mcg tablet TAKE ONE TABLET BY MOUTH EVERY DAY IN THE MORNING active Not Available Not Available No t Available buspirone 10 mg tablet TAKE ONE TABLET BY MOUTH THREE TIMES DAILY FOR ANXIETY active Not Available Not Available No t Available losartan 25 mg tablet TAKE ONE TABLET BY MOUTH ONCE DAILY active Not Available Not Available No t Available fluoxetine 10 mg capsule TAKE ONE CAPSULE BY MOUTH EVERY DAY active Not Available Not Available No t Available gabapentin 300 mg capsule take 1 capsule (300 mg) by oral route 3 times per day prn shingles pain 05/23 completed Not Available Not Available Not Available omeprazole 20 mg capsule,del ayed release take 1 capsule (20 mg) by oral route 2 times a day 05/23 completed Not Available Not Available Not Available diclofenac sodium 75 mg tablet,merline yed release take 1 tablet (75 mg) by oral route 2 times per day 11/12 completed Not Available Not Available Not Available furosemide 20 mg tablet TAKE ONE TABLET BY MOUTH DAILY NEEDED FOR swelling active Not Available Not Available No t Available levofloxaci n 500 mg tablet Take 1 tablet every 24 hours by oral route for 10 days. 10/11 completed Not Available Not Available Not Available estradiol 0.01% (0.1 mg/gram) vaginal cream Insert 1 applicato rful twice a week by vaginal route, for UTI preventio n. active Not Available Not Available No t Available scopolamine 1 mg over 3 days transdermal patch Apply 1 patch every 72 hours by transderm al route as needed, for motion sickness. active Not Available Not Available No t Available methylpredn isolone 4 mg tablets in a dose pack take by mouth as directed per package instructi ons 07/17 completed Not Available Not Available Not Available albuterol sulfate HFA 90 mcg/actuati on aerosol inhaler INHALE 1 PUFF BY MOUTH EVERY 6 HOURS NEEDED FOR SHORTNESS OF BREATH FOR WHEEZING active Not Available Not Available No t Available Vitamin D2 1,250 mcg (50,000 unit) capsule TAKE ONE CAPSULE BY MOUTH ONCE WEEKLY 06/06 completed Not Available Not Available Not Available ondansetron 4 mg disintegrat ing tablet DISSOLVE ONE TABLET ON THE TONGUE every SIX hours as needed FOR nausea 10/16 completed Not Available Not Available Not Available fluoxetine 20 mg capsule TAKE 1 CAPSULE EVERY OTHER DAY. ALTERNATE WITH 10 MG CAPSULE. 04/10 completed Not Available Not Available Not Available fluticasone propionate 50 mcg/actuati on nasal spray,suspe nsion [place] 1 spray into each nostril every day as directed for 30 days. active Not Available Not Available No t Available metformin ER 500 mg tablet,exte nded release 24 hr TAKE ONE TABLET BY MOUTH ONCE DAILY active Not Available Not Available No t Available diazepam 5 mg tablet take 1 tablet by mouth 1 hour prior to MRI for claustrop hobia. 11/30 completed Not Available Not Available Not Available levothyroxi ne 112 mcg tablet TAKE ONE TABLET BY MOUTH EVERY DAY in THE morning 12/03 completed Not Available Not Available Not Available amoxicillin 875 mg-potassiu m clavulanate 125 mg tablet TAKE ONE TABLET BY MOUTH TWICE DAILY FOR 10 DAYS 07/12 completed Not Available Not Available Not Available Bactrim DS 800 mg-160 mg tablet take 1 tablet by oral route every 12 hours for 5 days 10/10 completed Not Available Not Available Not Available nitrofurant oin monohydrate /macrocryst als 100 mg capsule TAKE ONE CAPSULE BY MOUTH EVERY TWELVE HOURS FOR 10 DAYS FOR uti 07/17 completed Not Available Not Available Not Available buspirone 25mg po bid 02/24 completed Not Available Not Available Not Available Invanz 1 gram intravenous solution Inject by intraveno us route. 08/17 completed Not Available Not Available Not Available Mucinex D Maximum Strength 120 mg-1,200 mg tablet,exte nded release Take 1 tablet every 12 hours by oral route as needed, for congestio n. 07/17 completed Not Available Not Available Not Available Voltaren 1 % topical gel apply 2 grams to the affected area(s) by topical route 4 times per day 05/23 completed Not Available Not Available Not Available cholecalcif bernardo (vitamin D3) 50 mcg (2,000 unit) capsule TAKE 1 CAPSULE BY MOUTH EVERY DAY active Not Available Not Available No t Available BD Ultra-Fine Latoya Pen Needle 32 gauge x 5/32 USE TO INJECT SAXENDA 1 TIME EACH DAY 04/10 completed Not Available Not Available Not Available sodium,pota ssium,mag sulfates 17.5 gram-3.13 gram-1.6 gram oral soln DRINK 1 CONTAINER OF PREP FOLLOWED BY 960 ML OF WATER THE EVENING BEFORE THE PROCEDURE . REPEAT THE NEXT MORNING, AT LEAST 2 HOURS BEFORE PROCEDURE . 09/28 completed Not Available Not Available Not Available Saxenda 3 mg/0.5 mL (18 mg/3 mL) subcutaneou s pen injector Inject 0.6 mg every day by subcutane ous route in the evening. 04/10 completed Not Available Not Available Not Available Wegovy 2.4 mg/0.75 mL subcutaneou s pen injector Inject 2.4 mg every week by subcutane ous route. 2024 active Not Available Not Available Not Avai lable Wegovy 1.7 mg/0.75 mL subcutaneou s pen injector Inject 1.7 mg every week by subcutane ous route. 2024 active Not Available Not Available Not Avai lable Wegovy 1 mg/0.5 mL subcutaneou s pen injector INJECT ONE MG WEEKLY SUBCUTANE OUSLY 10/16 completed Not Available Not Available Not Available Wegovy 0.25 mg/0.5 mL subcutaneou s pen injector Inject 0.5 mL every week by subcutane ous route. 01/09 completed Not Available Not Available Not Available Wegovy 0.5 mg/0.5 mL subcutaneou s pen injector INJECT 0.5 MG WEEKLY SUBCUTANE OUSLY 07/17 completed Not Available Not Available Not Available Paxlovid 300 mg (150 mg x 2)-100 mg tablets in a dose pack Take 1 dose pk by oral route as directed. 10/11 completed Not Available Not Available Not Available Lagevrio 200 mg capsule (EUA) Take 4 capsules every 12 hours by oral route for 5 days. 04/15 completed Not Available Not Available Not Available Vitals Date Recorded Body height Body mass index (BMI) Body weight Heart rate Oxygen saturation Oxygen saturation in Arterial blood by Pulse oximetry Systolic And Diastolic Provider Name and Address Organization Details Last Updated DateTime 5 165.1 cm 35.6 kg/m2 29631.7 7 g 72 /min 96 % 96 % 126/75 mm[Hg] Jaci Perrin [employer] 5 08:39:25 Date Recorded Body height Body mass index (BMI) Body weight Body temperature Heart rate Oxygen saturation Oxygen saturation in Arterial blood by Pulse oximetry Systolic And Diastolic Provider Name and Address Organization Details Last Updated DateTime 5 165.1 cm 33.8 kg/m2 76826.6 9 g 98 [degF] 75 /min 93 % 93 % 106/62 mm[Hg] RAVINDER WOODY [employer] 5 08:22:14 Date Recorded Body height Body mass index (BMI) Body weight Heart rate Oxygen saturation Oxygen saturation in Arterial blood by Pulse oximetry Systolic And Diastolic Provider Name and Address Organization Details Last Updated DateTime 5 165.1 cm 32.3 kg/m2 55786.0 2 g 63 /min 96 % 96 % 112/80 mm[Hg] Kalyn Ly [employer] 5 11:24:56 Date Recorded Body height Body mass index (BMI) Body weight Body temperature Heart rate Oxygen saturation Oxygen saturation in Arterial blood by Pulse oximetry Systolic And Diastolic Provider Name and Address Organization Details Last Updated DateTime 5 165.1 cm 32.4 kg/m2 44359.7 9 g 98 [degF] 66 /min 93 % 93 % 107/69 mm[Hg] RAVINDER [email or web address] 5 08:28:33 Date Recorded Body height Body mass index (BMI) Body weight Body temperature Heart rate Oxygen saturation Oxygen saturation in Arterial blood by Pulse oximetry Systolic And Diastolic Provider Name and Address Organization Details Last Updated DateTime 4 165.1 cm 38.3 kg/m2 246262. 96 g 98 [degF] 62 /min 96 % 96 % 116/65 mm[Hg] RAVINDER [email or web address] 4 09:38:30 Social History Question Answer Notes LastModified by Organizat ion Details LastModified Time Tobacco Smoking Status Never Smoker Irma pedro [employer] 10/10/2022 13:50:13 Is Your Home Air Conditioned? Yes Information not available 05/23/2022 Do You Wear A Helmet When Biking? No Information not available 05/23/2022 Are You Blind Or Do You Have Difficulty Seeing? No Information n ot available 05/23/2022 Are You A Caregiver? No Information not available 05/23/2022 In The 14 Days Before Symptom Onset, Have You Had Close Contact With A Laboratory-confirm ed COVID-19 While That Case Was Ill? No [email or web address] Information n ot available 07/12/2023 In The 14 Days Before Symptom Onset, Have You Had Close Contact With A Person Who Is Under Investigation For COVID-19 While That Person Was Ill? No [email or web address] Information not available 07/12/2023 Have You Been To An Area Known To Be High Risk For COVID-19? No [email or web address] Information not available 07/12/2023 Are You Deaf Or Do You Have Serious Difficulty Hearing? No Information not available 05/23/2022 What Type Of Diet Are You Following? REGULAR Information n ot available 05/23/2022 What Is The Highest Grade Or Level Of School You Have Completed Or The Highest Degree You Have Received? [id number] Information not available 05/23/2022 Who Is Your Employer? [employer] [email or web address] Information not available 06/22/2023 Have There Been Any Changes To Your Family Or Social Situation? No Information no t available 05/23/2022 Are There Any Guns Present In Your Home? No Information not available 05/23/2022 How Many Times In The Past Year Have You Used An Illegal Drug Or Used A Prescription Medication For Nonmedical Reasons? 0 [email or web address] Information not available 06/22/2023 Do You Have A Medical Power Of Bagel Maker? No Information not available 05/23/2022 What Was The Date Of Your Most Recent Tobacco Screening? 06/06/2025 Information not available 06/06/2025 Do You Have Any Pets? Yes Information not available 05/23/2022 What Is Your Relationship Status? Information not available 05/23/2022 Do You Use Your Seat Belt Or Car Seat Routinely? Yes Information not available 05/23/2022 Are You Sexually Active? No Information not available 06/01/2024 Do You Have Smoke And Carbon Monoxide Detectors In Your Home? Yes Information not available 05/23/2022 Are You Passively Exposed To Smoke? Yes [email or web address] Information no t available 01/20/2023 Are There Any Smokers In Your House? Yes [email or web address] Information not available 01/20/2023 Do You Participate In Social Media? Yes Information not available 05/23/2022 Do You Use Sunscreen Routinely? No Information not available 05/23/2022 Has Tobacco Cessation Counseling Been Provided? No Information not available 05/23/2022 Have You Recently Traveled Abroad? No Information not available 05/23/2022 Do You Have Difficulty Walking Or Climbing Stairs? No Information not available 05/23/2022 Are You Currently In School? No Information not available 05/23/2022 Do You Have Any Dietary Restrictions? No Information not available 05/23/2022 Sex: Female Functional Status Question Answer Note LastModified by Organizat ion Details LastModified Time Do you use any illicit or recreational drugs? No Information not available 05/23/2022 Do you or have you ever used any other forms of tobacco or nicotine? No Information not available 05/23/2022 What is your level of alcohol consumption? None Information not available 01/20/2023 Are you currently employed? Yes [email or web address] Information not available 06/22/2023 Do you have transportation difficulties? No Information not available 05/23/2022 Are you able to walk independently without assistance or assistive devices? [email or web address] Information not available 05/23/2022 Do you have difficulty doing errands alone? No Information not available 05/23/2022 Are you able to care for yourself independently? Yes Information not available 05/23/2022 Do you have difficulty dressing, bathing, grooming, or toileting? No Information not available 05/23/2022 Mental Status Question Answer Note LastModified by Organizat ion Details LastModified Time Do you feel stressed (tense, restless, nervous, or anxious, or unable to sleep at night)? [id number] Information not available 06/01/2024 Do you have difficulty concentrating, remembering or making decisions? No Information no t available 05/23/2022 Family History Relationship Description Onset Age of this Age Resolved Age Notes LastModified by Organization Details LastModified Time Mother Family history of Polycystic kidney [id number] Not available 13:33:39 Father Family history of malignant neoplasm [email or web address] Not available 13:34:23 Brother Family history of malignant neoplasm [id number] Not available 13:34:23 Medical History Condition Response Other Y Emergency room visit since last appointm ent. N Lung Disease Y Hypothyroidism Y Obesity Y Acid Reflux (GERD) Y Hospitalizations N Hypertension Y Gynecological History Statement/Question Response Date of Last Pap Smear Most Recent Mammogram 04/30/2024 Obstetrics History GPAL:G 0 P 0 0 0 0 Immunizations Vaccine Type Date Status Note Provider Nam e and Address Organization Details Recorded Time RSV, recombinant, protein subunit RSVpreF, adjuvant reconstituted, 0.5 mL, PF 4 completed RAVINDER pedro [facility]. 04/15/2024 09:56:58 COVID-19, mRNA, LNP-S, PF, 100 mcg/0.5mL dose or 50 mcg/0.25mL dose 1 completed RAVINDER MYNEAR null, [employer] 09/28/2022 17:25:51 COVID-19, mRNA, LNP-S, PF, 100 mcg/0.5mL dose or 50 mcg/0.25mL dose 1 completed RAVINDER MYNEAR null, [employer] 09/28/2022 17:25:51 zoster recombinant 2 completed Not Available [facility] 05/10/2022 23:39:19 zoster recombinant 2 completed Not Available [facility] 05/10/2022 23:39:19 Influenza, split virus, trivalent, PF 4 completed Karen Darling APRN [address] [place] [address], [phone], [facility] [employer] 07/21/2024 17:06:28 Influenza, split virus, quadrivalent, PF 0 completed RAVINDER MYNEAR null, [employer] 09/28/2022 17:25:51 Past Encounters Encounter ID Performer Location Encounter Start Date Encounter Closed Date Diagnosis/Indication Diagnosis SNOMED-CT Code Diagnosis ICD10 Code Diagnosis IMO Codes Diagnosis Note [id number] Karen Darling [address] [address] 05/16/2022 15:32:20 05/16/2022 16:17:48 Acute maxillary sinusitis 81651874 J01.00 Acute uppe r respiratory infection 11373114 J06.9 [id number] Karen Darling TRANSITIONAL NURSE [address] [address] 05/23/2022 17:10:55 05/24/2022 13:48:12 Obesity 577410814 E66.9 [id number] Karen Darling [address] [address] 06/24/2022 16:40:46 06/27/2022 11:41:12 Diverticulitis 539877509 K57.80 Continue to follow with general surgery as scheduled with follow-up CT appointmen t noted. Adhere to diverticul ar diet, continue IV Invanz daily as ordered per general surgery. Begin daily bowel regimen of MiraLAX and Metamucil daily. She will be scheduled for colonoscop y in the near future if her perforatio n heals and her symptoms resolve. [id number] [place] [address] 08/17/2022 14:09:21 08/17/2022 15:37:30 Acute upper respiratory infection 27009427 J06.9 Acute maxi llary sinusitis 51702005 J01.00 Patient likely has an acute bacterial sinusitis. Will treat as below. No signs of preseptal or orbital cellulitis , meningismu s, or neurologic changes concerning for intracrani al process. Instructed family to monitor patient closely and call office for any of these symptoms. Supportive care reviewed: raising HOB, humidifier use, saline nasal spray, rest, encourage PO fluids and monitor hydration status, infection control measures. Recommende d acetaminop hen/ibupro fen PRN pain, fever; reviewed appropriat e doses. Follow-up as below. [id number] [place] [address] 09/28/2022 16:52:23 09/28/2022 17:51:31 Acute upper respiratory infection 11188306 J06.9 COVID-19 529482960 U07.1 Patient presented with symptoms of upper respirator y infection. Advised to drink plenty of fluids, run a cool-mist humidifier in room at night, gargle salt water for sore throat, and get plenty of rest. Patient should avoid over-exert ion and reduce exposure to irritants such as smoke, cold, dry air, and dust. Treatment currently involves symptomati c relief. Patient may take acetaminop hen or ibuprofen as directed to reduce fever and body aches. Antihistam ine and decongesta nt usage was discussed and recommenda tions made. Patient understood these instructio ns and will follow up in the office in 10 days to 2 weeks if symptoms not improving. [id number] Karen Darling [place] [address] 10/11/2022 16:57:12 10/11/2022 17:42:53 Body mass index 40+ - severely obese 925175228 Z68.41 USe of saxenda and dosing schedule explained. Low carb low fat 1200 jessica/day diet, 36 oz water daily, 30 min aerobic exercise 5 days per week recommende d. Hypothyroidism 71361341 E03.9 [id number] IBETH DANIEL [place] [address] 01/20/2023 16:48:29 01/20/2023 17:49:33 Dysuria 54437520 R30.0 Body mass index 30+ - obesity 331064982 Z68.41 [id number] Karen Darling [place] [address] 04/10/2023 10:48:48 04/10/2023 11:59:48 Autoimmune thyroiditis 68586808 E06.3 Hypertensive disorder 38 819521 I10 DASH diet, exercise and weight loss encouraged . Vitamin D deficiency 347 79691 E55.9 Adult heal th examination 052357938 Z00.00 BSE reviewed and recommende d . Reviewed calcium needs, exercise, and prevention of osteoporos is . Periodic colonoscop y screening recommende d . Reviewed normal menopause and menopausal symptoms . Mammogram recommende d yearly . Body mass index 40+ - severely obese 412214892 Z68.41 Diabetes m ellitus screening 504340343 Z13.1 Hyperlipid emia screening 238269483 Z13.220 Dysthymia 92554658 F34.1 Generalize d anxiety disorder 07829440 F41.1 Essential hypertension 67986220 I10 Osteoarthritis 465102061 M19.90 Gastroesop hageal reflux disease without esophagitis 647266389 K21.9 Dyspnea 516387721 R06.00 [id number] Karen Darling [place] [address] 0 05/01/2023 16:38:34 05/02/2023 08:12:01 Acute upper respiratory infection 31006186 J06.9 Acute sinusitis 29312539 J01.90 Patient likely has an acute bacterial sinusitis. Will treat as below.No signs of preseptal or orbital cellulitis , meningismu s, or neurologic changes concerning for intracrani al process. Instructed family to monitor patient closely and call office for any of these symptoms.S upportive care reviewed: raising HOB, humidifier use, saline nasal spray, rest, encourage PO fluids and monitor hydration status, infection control measures.R ecommended acetaminop hen/ibupro fen PRN pain, fever; reviewed appropriat e doses.Foll ow-up as below. [id number] IBETH DANIEL, [place] [address] 0 06/22/2023 13:29:40 06/22/2023 14:45:27 Generalized anxiety disorder 70716392 F41.1 Major depr essive disorder 255028572 F32.9 Viral screening 18015648 4 Z11.59 Dysuria 71375149 R30.0 Dizziness 179758209 R42 [id number] [place] [address] 06/24/2023 10:31:16 06/24/2023 11:23:49 Acute sinusitis 12431700 J01.90 Body mass index 40+ - severely obese 609195492 Z68.41 [id number] [place] [address] 07/12/2023 16:35:20 07/12/2023 17:26:36 Prediabetes 077234556 R73.03 Dysuria 58344289 R30.0 Body mass index 40+ - severely obese 878030116 Z68.41 Low carb diet plan with aerobic exercise and adequate water intake explained. Use of carb and calorie counter explained. Vitamin D deficiency 347 73422 E55.9 [id number] [place] [address] 08/07/2023 13:50:58 08/07/2023 17:03:45 Acute upper respiratory infection 45605195 J06.9 Acute bronchitis 3854474 2 J20.9 Use of inhaler explained. Push fluids, cool mist vaporizer, and mucinex BID to aid in expectorat ion. [id number] [place] [address] 08/26/2023 11:50:55 08/26/2023 12:28:03 Cough 91299539 R05.9 Body mass index 40+ - severely obese 050558498 Z68.41 Acute bronchitis 0564988 2 J20.9 [id number] [place] [address] 09/08/2023 13:47:28 09/08/2023 15:01:18 Nodule of lung 013875217 R91.1 RUL perihilar nodule/mas s noted on CXR in ER last week. Lower resp iratory tract infection 38403606 J22 RUL, Start Levaquin and add trial of Breztri samples and prn Duonebs. Dyspnea on exertion 6084 5006 R06.09 Persistent SOA with orthopnea. Obtain echo to r/o CHF and valvular disease. [id number] Karen Darling [place] [address] 0 09/15/2023 14:18:20 09/15/2023 15:31:37 Gastroesophageal reflux disease without esophagitis 733765727 K21.9 Stop Prilosec, start Protonix. GERD dietary and lifestyle measures discussed. [id number] Karen Darling [place] [address] 10/11/2023 15:48:42 10/11/2023 16:57:53 Prediabetes 046553413 R73.03 Continue metformin, low carb diet, exercise, and weight loss. [id number] Karen Darling [address] [place] [address] 12/01/2023 14:21:39 12/01/2023 14:57:56 Fatigue 42023672 R53.83 Start MVI daily, obtain labs. Ensure adequate nutrition, hydration, and rest. Hold metformin until I get Labs back. Vitamin D deficiency 347 49309 E55.9 [id number] Karen Darling APRN [address] 0 01/10/2024 16:37:25 01/11/2024 08:03:06 Prediabetes 337083013 R73.03 Continue metformin, low carb diet, exercise, and weight loss. Body mass index 40+ - severely obese 981361700 Z68.41 Low carb diet plan with aerobic exercise and adequate water intake explained. Use of carb and calorie counter explained. Tendinitis of right psoas tendon 3615427898 56536 M76.11 RICE, ibu prn pain, [id number] [place] [address] 03/29/2024 14:19:48 03/29/2024 15:31:10 Acute upper respiratory infection 34997558 J06.9 COVID-19 770727956 U07.1 Patient presented with symptoms of upper respirator y infection. Advised to drink plenty of fluids, run a cool-mist humidifier in room at night, gargle salt water for sore throat, and get plenty of rest. Patient should avoid over-exert ion and reduce exposure to irritants such as smoke, cold, dry air, and dust. Treatment currently involves symptomati c relief. Patient may take acetaminop hen or ibuprofen as directed to reduce fever and body aches. Antihistam ine and decongesta nt usage was discussed and recommenda tions made. Patient understood these instructio ns and will follow up in the office in 10 days to 2 weeks if symptoms not improving. Will tx with antitiobic s due to her hx of lung disease and previous pneumonias . Body mass index 40+ - severely obese 244155365 Z68.41 Low carb diet plan with aerobic exercise and adequate water intake explained. Use of carb and calorie counter explained. [id number] Karen Darling APRN [place] [id number] 04/15/2024 08:49:11 04/15/2024 09:32:57 Autoimmune thyroiditis 13060963 E06.3 Hypertensive disorder 38 961710 I10 DASH diet, exercise and weight loss encouraged . Prediabetes 212176593 R7 3.03 Continue metformin, low carb diet, exercise, and weight loss. Adult heal th examination 365850896 Z00.00 BSE reviewed and recommende d . Reviewed calcium needs, exercise, and prevention of osteoporos is . Periodic colonoscop y screening recommende d . Reviewed normal menopause and menopausal symptoms . Mammogram recommende d yearly . Body mass index 30+ - obesity 964869985 Z68.39 Continue Wegovy. Active or passive immunization 173128732 Z23 Screening mammography of bilateral breasts 3351139520 53901 Z12.31 [id number] Nery Joiner NP [place] [address] 06/01/2024 10:26:50 06/01/2024 11:21:43 Dysuria 30679539 R30.0 Congestion of nasal sinus 99653416 R09.81 Suprapubic pain 79630516 6 R10.30 Spasm of u rinary bladder 202966041 N32.89 [id number] Karen Darling [place] [address] 0 07/17/2024 09:15:23 07/17/2024 10:11:22 Administration of influenza vaccine 24840595 Z23 Prediabetes 998521681 R7 3.03 Continue metformin, low carb diet, exercise, and weight loss. Body mass index 30+ - obesity 091044437 Z68.39 Increase Wegovy 1.7 mg weekly. Has lost 32 pounds thus far with this medication . Hypothyroidism 33236397 E03.9 Check labs today. [id number] Karen Darling APRN [place] [id number] 10/16/2024 08:29:07 10/16/2024 09:18:28 Prediabetes 784612372 R73.03 Continue metformin, Wegovy,low carb diet, exercise, and weight loss. Hypertensive disorder 38 280462 I10 DASH diet, exercise and weight loss encouraged . Vitamin D below reference range 046513689 E55.9 Hyperlipid emia screening 897828084 Z13.220 Body mass index 30+ - obesity 105164652 Z68.39 Continue Wegovy at 1.7 mg weekly. She has lost 47 pounds. Hypothyroidism 19779123 E03.9 Check labs today. Malodorous urine 9241206 01 R82.862 [id number] Karen Darling [place] [address] 0 02/14/2025 07:54:40 02/14/2025 08:42:58 Prediabetes 284957397 R73.03 Continue metformin, Wegovy,low carb diet, exercise, and weight loss. Body mass index 30+ - obesity 735514024 E66.9 34955511 Continue Wegovy at 1.7 mg weekly. She has lost 58 pounds!!! Hypothyroidism 98243604 E03.9 Recheck lab today, Synthroid dose was decreased 3 months ago. [id number] Gertrudis Quiroga [employer] [place] [address] 05/31/2025 11:15:48 06/02/2025 16:16:22 Nasal sinus pressure sensation 4540820106 J34.89 [id number] POC testing negative. Start daily flonase and cetirizine . If symptoms worsen or you develop a fever, call Monday. Otherwise keep scheduled follow-up on Jun 06 with Karen. [id number] Karen Darling [place] [address] 0 06/06/2025 08:09:22 06/06/2025 12:29:30 Prediabetes 838317432 R73.03 Continue metformin, Wegovy,low carb diet, exercise, and weight loss. Screening mammography 24 514277 Z12.31 17624003 Body mass index 30+ - obesity 687412706 E66.9 Continue Wegovy at 1.7 mg weekly. Vitamin D deficiency 347 94447 E55.9 13197 Stop weekly ergocal and go to daily for maintenanc e. Motion sickness 76945888 T75.3XXA 731278 Going on a cruise and requested scop patches Health Concerns Section Related Observation LastModified by Organization Detai ls LastModified Time None Recorded Concern Status LastModified by Organization Details LastModified Time None Recorded Advance Directives Directive None Recorded Payers Insurance Date Sequence Insurance Name Policy Number Policy Doshi Covered Member ID Doshi Member ID Guarantor Name 06/04/2025 1 [place] [id number] Tiffani Alysia Ralph [id number] Tiffani Ralph 08/05/2024 SLIDING FEE SCHEDULE - DISCOUNT Tiffani Ralph Notes Date Note Type Note Provider Name and Address Organization Details Recorded Time 024 text/ht ml Hypertension F/UReported by PatientHPIFor medications, patient reportstaking medications as directedandno side effects from medication. For lifestyle, patient reportsregular exerciseandlimits sodium intake. For associated symptoms, patient reportsno dizziness,no lightheadedness,no chest pain,no shortness of breath,no palpitations,no edema,no calf pain with exertion, andno headache. HypothyroidReported by PatientHPIFor reason for visit, patient reportstsh check/labs. For duration, patient reports>12 months. For associated symptoms, patient reportsno weakness,no lightheadedness,no fatigue,no cold intolerance,no constipation,no weight gain,no involuntary weight loss,normal mood,no pain,no dry/coarse skin,no edema,no deepening of the voice,no hoarseness,no goiter,no mass detected,no chest pain, andno palpitations. For treatment, patient reportstaking medication as prescribed. Overweight/ObeseReported by PatientHPIFor co-morbidities, patient reportsimpaired fasting glucose,hypertension, andelevated cholesterol. For patient information, patient reportsinitial weight: 257 lbs,weight loss since last visit: 32 lbs, andclass iii obesity (bmi >40). For duration, patient reports6 months. For onset/timing, patient reportsgradual onset,longstanding, andlost weight but gained it back. For context, patient reportshypothyroidismandsedentary. For associated symptoms, patient reportsno depression,no chronic illness,no fatigue,no headache,no irritability,no excessive hunger,no constipation,no functional limitations, andno prader-willi syndrome. For lifestyle changes, patient reportsno changes in living situation,motivated to continue lifestyle changes,losing weight, andregularly checks weight at home. For nutrition, patient reportseats mostly healthy diet,good adherence to diet plan,eats low carbohydrate diet,counting and restricting calories,restricting concentrated sugars, andwhole grain foods. For physical activity, patient reportsreported frequency of moderate level of physical activity per week: sedentary. For medication education, patient reportsunderstands potential side effects,understands administration, andunderstands role of diet as primary therapy.ROS as noted in the [facility] Follow up on prediabetes. She is tolerating metformin well. Is trying to eat a healthier diet. Karen Darling, TRANSITIONAL NURSE [address] [place], [address], [facility] [employer] [facility]. 07/21/2024 17:10:36 025 text/ht ml Hypertension F/UReported by PatientHPIFor medications, patient reportstaking medications as directedandno side effects from medication. For lifestyle, patient reportsregular exerciseandlimits sodium intake. For associated symptoms, patient reportsno dizziness,no lightheadedness,no chest pain,no shortness of breath,no palpitations,no edema,no calf pain with exertion, andno headache. HypothyroidReported by PatientHPIFor reason for visit, patient reportstsh check/labs. For duration, patient reports>12 months. For associated symptoms, patient reportsno weakness,no lightheadedness,no fatigue,no cold intolerance,no constipation,no weight gain,no involuntary weight loss,normal mood,no pain,no dry/coarse skin,no edema,no deepening of the voice,no hoarseness,no goiter,no mass detected,no chest pain, andno palpitations. For treatment, patient reportstaking medication as prescribed. Overweight/ObeseReported by PatientHPIFor co-morbidities, patient reportsimpaired fasting glucose,hypertension, andelevated cholesterol. For patient information, patient reportsinitial weight: 257 lbs,weight loss since last visit: 47 lbs, andclass iii obesity (bmi >40). For duration, patient reports6 months. For onset/timing, patient reportsgradual onset,longstanding, andlost weight but gained it back. For context, patient reportshypothyroidismandsedentary. For associated symptoms, patient reportsno depression,no chronic illness,no fatigue,no headache,no irritability,no excessive hunger,no constipation,no functional limitations, andno prader-willi syndrome. For lifestyle changes, patient reportsno changes in living situation,motivated to continue lifestyle changes,losing weight, andregularly checks weight at home. For nutrition, patient reportseats mostly healthy diet,good adherence to diet plan,eats low carbohydrate diet,counting and restricting calories,restricting concentrated sugars, andwhole grain foods. For physical activity, patient reportsreported frequency of moderate level of physical activity per week: sedentary. For medication education, patient reportsunderstands potential side effects,understands administration, andunderstands role of diet as primary therapy.Doing well on Wegovy. Has lost 47 pounds.ROS as noted in the [facility] Follow up on prediabetes. She is tolerating metformin well. Is trying to eat a healthier diet. C/o malodorous urine, but no dysuria. Karen Darling APRN [address] [place] [address], [phone], [facility] [employer] 10/16/2024 15:57:54 025 text/ht ml HypothyroidReported by PatientHPIFor reason for visit, patient reportstsh check/labs. For duration, patient reports>12 months. For associated symptoms, patient reportsno weakness,no lightheadedness,no fatigue,no cold intolerance,no constipation,no weight gain,no involuntary weight loss,normal mood,no pain,no dry/coarse skin,no edema,no deepening of the voice,no hoarseness,no goiter,no mass detected,no chest pain, andno palpitations. For treatment, patient reportstaking medication as prescribed.Synthroid was lowered 3 months ago. Overweight/ObeseReported by PatientHPIFor co-morbidities, patient reportsimpaired fasting glucose,hypertension, andelevated cholesterol. For patient information, patient reportsinitial weight: 257 lbs,weight loss since last visit: 47 lbs, andclass iii obesity (bmi >40). For duration, patient reports6 months. For onset/timing, patient reportsgradual onset,longstanding, andlost weight but gained it back. For context, patient reportshypothyroidismandsedentary. For associated symptoms, patient reportsno depression,no chronic illness,no fatigue,no headache,no irritability,no excessive hunger,no constipation,no functional limitations, andno prader-willi syndrome. For lifestyle changes, patient reportsno changes in living situation,motivated to continue lifestyle changes,losing weight, andregularly checks weight at home. For nutrition, patient reportseats mostly healthy diet,good adherence to diet plan,eats low carbohydrate diet,counting and restricting calories,restricting concentrated sugars, andwhole grain foods. For physical activity, patient reportsreported frequency of moderate level of physical activity per week: sedentary. For medication education, patient reportsunderstands potential side effects,understands administration, andunderstands role of diet as primary therapy.Doing well on Wegovy. Has lost 47 pounds.ROS as noted in the HPI F/up on prediabetes - she has lost 58 total pounds with Wegovy and metformin. Feels great. Karen Darling APRN [address] [place], [address], [employer] 02/14/2025 11:06:48 025 text/ht ml Patient presents with a 3 day history of sneezing, sinus congestion and pressure, body aches and chills. Denies fever. Has taken Benadryl and Claritin. ORTEGA Jett [address] [place], [address], [employer] 05/31/2025 11:56:54 025 text/ht ml Overweight/ObeseReported by PatientHPIFor co-morbidities, patient reportsimpaired fasting glucose,hypertension, andelevated cholesterol. For patient information, patient reportsinitial weight: 257 lbs,weight loss since last visit: 47 lbs, andclass iii obesity (bmi >40). For duration, patient reports6 months. For onset/timing, patient reportsgradual onset,longstanding, andlost weight but gained it back. For context, patient reportshypothyroidismandsedentary. For associated symptoms, patient reportsno depression,no chronic illness,no fatigue,no headache,no irritability,no excessive hunger,no constipation,no functional limitations, andno prader-willi syndrome. For lifestyle changes, patient reportsno changes in living situation,motivated to continue lifestyle changes,losing weight, andregularly checks weight at home. For nutrition, patient reportseats mostly healthy diet,good adherence to diet plan,eats low carbohydrate diet,counting and restricting calories,restricting concentrated sugars, andwhole grain foods. For physical activity, patient reportsreported frequency of moderate level of physical activity per week: sedentary. For medication education, patient reportsunderstands potential side effects,understands administration, andunderstands role of diet as primary therapy.Doing well on Wegovy.ROS as noted in the HPI F/up on prediabetes - she has lost 69 total pounds with Wegovy and metformin. Feels great. Karen Darling, TRANSITIONAL NURSE [address] [facility], [place], [address], [facility] [email or web address] 06/06/2025 14:09:27 OBGyn Episode No OBEpisode recorded.
--- OUTSIDE RECORDS SUMMARY | 2025-06-24 16:18 | XMS_ITS | Continuity of Care Document ---
Author Organization [facility] Address [address] [place] [address] Assessment No assessment recorded. Plan of Treatment Reminders Order Date Submit Date Provider Last Modified By Organization Details Last Modified Time Details Appointments FOLLOW UP 30 2025 08:00A M Karolina Darling APRN Not available Not available Not available Lab rapid SARS CoV 2 Ag, QL, IA, upper respirato ry specimen [address], [address], 05/31/2025 11:54:22 rapid flu (A+B) [address], [address], 05/31/2025 11:54:22 Referral None recorded. Procedures None recorded. Surgeries None recorded. Imaging None recorded. Medication Orders fluticaso ne propionat e 50 mcg/actua tion nasal spray,earl pension 2024 025 [facility], [address] [place] [address], [id number], 05/31/2025 12:08:42 cetirizin e 10 mg tablet 2024 025 [facility], [address] [place] [address], [id number], 05/31/2025 12:08:41 Patient TargetsNo targets recorded. Patient InstructionsNo instructions recorded. Reason for Referral None Reported. Results Created Date Observation Date Name Description Value Unit Range Abnormal Flag Note LastModifiedBy Organization Detail LastModifiedTime 05/31/2005/31/2025 rapid SARS CoV 2 Ag, QL, IA, upper respi rator y speci men SARS CoV Ag negati ve Not Available [address], [address], 05/31/2025 11:32:24 05/31/2005/31/2025 rapid flu (A+B) Flu A negati ve Not Available [address], [address], 05/31/2025 11:32:29 05/31/2005/31/2025 rapid flu (A+B) Flu B negati ve Not Available [address], [address], 05/31/2025 11:32:29 Result Notes None recorded. Problems Name Problem SNOMED Code Status Onset Date Resolution Date Notes Provider Name and Address Organization Details Recorded Time Urinary tract infectio us disease 90806560 Completed 201805/23/2022 Problem Code: N39.0; Problem Code Type: ICD-10; RAVINDER pedro, [employer] 2 17:30:59 Urinary tract infectio us disease 78277145 Completed 201902/25/2020 Problem Code: N39.0; Problem Code Type: ICD-10; RAVINDER pedro, [employer] 2 17:30:59 Disorder of upper respirat ory system 832350191 Completed 201902/25/2020 Problem Code: J06.9; Problem Code Type: ICD-10; Not Available [facility] 2 21:22:54 Hypothyr oidism 51745714 Active 2019 Not Available [facility] 21:22:53 Hyperten sive disorder 00994529 Active 2019 Problem Code: I10; Problem Code Type: ICD-10; Not Available [facility] 21:22:53 Undiffer entiated inflamma tory polyarth ritis 618974945 Completed 201905/23/2022 Problem Code: M13.0; Problem Code Type: ICD-10; RAVINDER WOODY null, [employer] 2 17:30:59 Finding of body mass index 400374977 Completed 201909/17/2020 Problem Code: Z68.41; Problem Code Type: ICD-10; Not Available [facility] 21:22:57 Acute maxillar y sinusiti s 64926460 Completed 201902/25/2020 Problem Code: J01.00; Problem Code Type: ICD-10; Not Available [facility] 21:22:53 Dysuria 63366571 Completed 201902/25/2020 Problem Code: R30.0; Problem Code Type: ICD-10; Karen Darling APRN [address] [place], [address] , [employer] 5 08:46:29 Vitamin D deficien cy 77211180 Completed 201905/23/2022 Problem Code: E55.9; Problem Code Type: ICD-10; Karen Darling APRN [address] [place], [address] , [employer] 5 08:58:38 Low back pain 515037575 Completed 201905/23/2022 Problem Code: M54.5; Problem Code Type: ICD-10; RAVINDER WOODY null, [employer] 2 17:30:59 General examinat ion of patient Completed 201905/23/2022 RAVINDER WOODY null, [employer] 2 17:30:59 Screenin g mammogra phy Completed 201905/31/2020 Problem Code: Z12.31; Problem Code Type: ICD-10; Not Available [facility] 2 21:22:55 Finding of body mass index 282330915 Active 2019 Problem Code: Z68.41; Problem Code Type: ICD-10; Not Available [facility] 2 21:22:56 Sampling of vagina for Papanico laou smear Completed 201909/17/2020 Problem Code: Z01.419; Problem Code Type: ICD-10; Not Available [facility] 21:22:55 Herpes zoster auricula ris 65998463 Completed 201905/23/2022 Problem Code: B02.8; Problem Code Type: ICD-10; RAVINDER SERAFINNEAR null, [employer] 2 17:30:59 Herpes zoster 7116650 Completed 201905/23/2022 Problem Code: B02.9; Problem Code Type: ICD-10; RAVINDER SERAFINNEAR null, [employer] 2 17:30:59 Generali zed anxiety disorder 60369679 Completed 201905/23/2022 Problem Code: F41.1; Problem Code Type: ICD-10; RAVINDER SERAFINNEAR null, [employer] 2 17:30:59 Autoimmu ne thyroidi tis 25465015 Active 2019 Problem Code: E06.3; Problem Code Type: ICD-10; Not Available [facility] 2 21:22:53 New daily persiste nt headache 76530730235 9105 Completed 201905/23/2022 Problem Code: G44.52; Problem Code Type: ICD-10; RAVINDER SERAFINNEAR null, [employer] 2 17:30:59 Localize d edema 001879690 Completed 201905/23/2022 Problem Code: R60.0; Problem Code Type: ICD-10; RAVINDER BETANCOURTKIERRADiana pedro, [employer] 2 17:30:59 Acute sinusiti s 98622609 Completed 202005/23/2022 Problem Code: J01.90; Problem Code Type: ICD-10; Karen Darling APRN [address] [place] [address], [address] , [employer] 5 08:54:52 Acute serous otitis media of bilatera l ears 09934665021 34084 Completed 202005/23/2022 Problem Code: H65.03; Problem Code Type: ICD-10; RAVINDER BETANCOURTSONJA mayela, [employer] 2 17:30:59 Acute sinusiti s 02198491 Completed 202006/03/2021 Problem Code: J01.90; Problem Code Type: ICD-10; Karen Darling APRN [address] [place], [address] , [employer] 5 08:54:52 Acute sinusiti s 91901814 Completed 202006/03/2021 Problem Code: J01.90; Problem Code Type: ICD-10; Karen Darling APRN [address] [place] [address], [address] , [employer] 5 08:54:52 Acute sinusiti s 18321126 Completed 202006/03/2021 Problem Code: J01.90; Problem Code Type: ICD-10; Karen Darling APRN [address] [place], [address] , [employer] 5 08:54:52 Dysuria 22010849 Completed 202005/23/2022 Problem Code: R30.0; Problem Code Type: ICD-10; Karen Darling APRN [address] [place], [address] , [employer] 5 08:46:29 Negative dysphoto psia 266184701 Completed 202005/23/2022 Problem Code: H53.8; Problem Code Type: ICD-10; RAVINDER pedro, [employer] 2 17:30:59 History of sexually transmit kat disease 101532595 Completed 202105/23/2022 Problem Code: Z86.19; Problem Code Type: ICD-10; RAVINDER pedro, [employer] 2 17:30:59 Prediabe cassie 897005994 Active 2023 Karen Darling APRN [address] [place] [address], [address] , [employer] 5 08:51:21 Body mass index 30+ - obesity 886795343 Active 2024 Karen Darling APRN [address] [place] [address], [address] , [employer] 5 14:09:04 Acute sinusiti s 66051107 Active 2024 Problem Code: J01.90; Problem Code Type: ICD-10; Karen Darling APRN [address] [place] [address], [address] , [employer] 5 08:54:52 Nasal sinus pressure sensatio n Active 2024 ORTEGA Jett [address] [place] [address], [address] , [employer] 5 11:43:29 Vitamin D deficien cy 10142172 Active 2024 Problem Code: E55.9; Problem Code Type: ICD-10; Karen Darling APRN [address] [place] [address], [address] , [employer] 5 08:58:38 Motion sickness 39959660 Active 2024 Karen Darling APRN [address] [place], [address] , [employer] 14:09:04 Notes:*Problem Name: Vaginit is, vulvitis and [...] 04/30/20 24 Most Recent Mammogram completed RAVINDER SERAFINSONJA [address] [employer] 07/17/2024 09:39:13 07/27/20 19 appendectomy completed Not Available [facility] 05/10/2022 22:56:06 07/27/20 19 cholecystectomy completed Not Available [facility] 05/10/2022 22:56:07 07/27/20 19 hysterectomy completed Not Available [facility] 05/10/2022 22:56:08 hand repair completed [facility] [employer] 01/20/2023 16:53:58 foot repair completed [employer] 01/20/2023 16:54:07 repair of shoulder completed [employer] [employer] 01/20/2023 16:54:13 Imaging Results None recorded. Procedure Notes None recorded. Medical Equipment None Reported. Allergies Allergen ID Allergen Name Allergen Category Reaction Reaction Severity Criticality Documentation Date Start Date Code Code System Note Provider Name and Address Organization Details Recorded Time 29347 Ceclor medicatio n Not available Not available Not available 05/10/202200303 5 RxNorm Not Available [facility] 22:54:21 32437 Paxlovid medicatio n vomiting mild low 10/11/2022 Karen Darling APRN [address] [place], [address], [place] [employer], [facility]. 17:27:49 Medications Name Sig Start Date Stop [...] propionate 50 mcg/actuati on nasal spray,suspe nsion [place] 1 spray into each nostril every day [...] Updated DateTime 5 165.1 cm 32.3 kg/m2 75292.0 2 g 63 /min 96 % 96 % 112/80 mm[Hg] Kalyn Ly [employer] 5 11:24:56 Social History Question Answer Notes LastModified by Organizat ion Details LastModified Time Tobacco Smoking Status Never Smoker Irma pedro [employer] 10/10/2022 13:50:13 Is Your Home Air Conditioned? [...] Or The Highest Degree You Have Received? [id number] Information not available 05/23/2022 Who Is Your Employer? [employer] [email or web address] Information not available 06/22/2023 Have There Been Any Changes To Your Family Or Social Situation? No Information no t available 05/23/2022 Are There Any Guns Present In Your Home? No Information not available 05/23/2022 How Many Times In The Past Year Have You Used An Illegal Drug Or Used A Prescription Medication For Nonmedical Reasons? 0 Information not available 06/22/2023 Do You Have A Medical Power Of Tamale Maker? No Information not available 05/23/2022 What Was The Date Of Your Most Recent Tobacco Screening? 06/06/2025 Information not available 06/06/2025 Do You Have Any Pets? Yes Information not available 05/23/2022 What Is Your Relationship Status? Information not available 05/23/2022 Do You Use Your Seat Belt Or Car Seat Routinely? Yes Information not available 05/23/2022 Are You Sexually Active? No [email or web address] Information not available 06/01/2024 Do You Have Smoke And Carbon Monoxide Detectors In Your Home? Yes Information not available 05/23/2022 Are You Passively Exposed To Smoke? Yes [email or web address] Information no t available 01/20/2023 Are There Any Smokers In Your House? Yes [email or web address] Information not available 01/20/2023 Do You Participate [...] Functional Status Question Answer Note LastModified by [employer] Details LastModified Time Do you use any illicit or recreational drugs? No Information not available 05/23/2022 Do you or have you ever used any other forms of tobacco or nicotine? No Information not available 05/23/2022 What is your level of alcohol consumption? None [email or web address] Information not available 01/20/2023 Are you currently employed? Yes [email or web address] Information not available 06/22/2023 Do you have [...] Mental Status Question Answer Note LastModified by [employer] Details LastModified Time Do you feel stressed (tense, restless, nervous, or anxious, or unable to sleep at night)? [id number] [email or web address] Information not available 06/01/2024 Do you have difficulty concentrating, remembering or making decisions? No Information no t available 05/23/2022 Family History Relationship Description Onset Age of this Age Resolved Age Notes LastModified by Organization Details LastModified Time Mother Family history of Polycystic kidney [email or web address] Not available 13:33:39 Father Family history of malignant neoplasm [email or web address] Not available 13:34:23 Brother Family history of malignant neoplasm [email or web address] Not available 13:34:23 Medical History Condition Response Other Y Hospitalizations N Emergency room visit since last appointm ent. N Lung Disease Y Hypothyroidism Y Obesity Y Acid Reflux (GERD) Y Hypertension Y Gynecological History Statement/Question Response Date of Last Pap Smear Most Recent Mammogram 04/30/2024 Obstetrics History GPAL:G 0 P 0 0 0 0 Immunizations Vaccine Type Date Status Note Provider Nam e and Address Organization Details Recorded Time RSV, recombinant, protein subunit RSVpreF, adjuvant reconstituted, 0.5 mL, PF 4 completed RAVINDER MYNEAR null, [employer] 04/15/2024 09:56:58 COVID-19, mRNA, LNP-S, PF, 100 mcg/0.5mL dose or 50 mcg/0.25mL dose 1 completed RAVINDER MYNEAR null, [employer] 09/28/2022 17:25:51 COVID-19, mRNA, LNP-S, PF, 100 mcg/0.5mL dose or 50 mcg/0.25mL dose 1 completed RAVINDER MYNEAR null, [employer] 09/28/2022 17:25:51 zoster recombinant 2 completed Not Available [facility] 05/10/2022 23:39:19 zoster recombinant 2 completed Not Available [facility] 05/10/2022 23:39:19 Influenza, split virus, trivalent, PF 4 completed Karen Darling APRN [address] [place], [address], [employer] 07/21/2024 17:06:28 Influenza, split virus, quadrivalent, PF 0 completed RAVINDER SERAFINSONJA pedro, [place] [employer] 09/28/2022 17:25:51 Past Encounters Encounter ID Performer Location Encounter Start Date Encounter Closed Date Diagnosis/Indication Diagnosis SNOMED-CT Code Diagnosis ICD10 Code Diagnosis IMO Codes Diagnosis Note [id number] ORTEGA Jett [address] [address] 05/31/2025 11:15:48 06/02/2025 16:16:22 Nasal sinus pressure sensation 1992469238 J34.89 310116 POC testing negative. Start daily flonase and cetirizine . If symptoms worsen or you develop a fever, call Monday. Otherwise keep scheduled follow-up on Jun 06 with Karen. Health Concerns Section Related Observation LastModified by Organization Detai ls LastModified Time None Recorded Concern Status LastModified by Organization Details LastModified Time None Recorded Payers Encounter Date Sequence Insurance Name Policy Number Policy Doshi Covered Member ID Doshi Member ID Guarantor Name 05/31/2025 1 [employer]: NOLAN CHAUDHRY [facility] [id number] Tiffani Ralph [id number] Tiffani Ralph Notes Date Note Type Note Provider Name and Address Organization Details Recorded Time 05/31/2025 text/html Patient presents with a 3 day history of sneezing, sinus congestion and pressure, body aches and chills. Denies fever. Has taken Benadryl and Claritin. ORTEGA Jett [address] [place], [address], [employer] [facility] 05/31/2025 11:56:54 OBGyn Episode No OBEpisode recorded.
--- OUTSIDE RECORDS SUMMARY | 2025-06-24 16:18 | XMS_ITS | Clinical Summary ---
Author Organization [facility] Address [address] [place] [address] Care Team Providers Care Scheduling Manager Name Role Phone Karen Darling APRN Primary Care Provider [phone] Allergies Active Allergy Reactions Criticality Noted Date Comments Cefaclor Other (See Comments) High 10/10/2023 Blacked out Codeine Nausea And Vomiting Low 2014 Nirmatrelvir-Ritonavir Nausea And Vomiting Low 02/2024 Medications albuterol (PROVENTIL) (2.5 MG/3ML) 0.083% nebulizer solution Inhale 3 mL 3 times a day by nebulization route as needed. Active FLUoxetine (PROzac) 10 MG capsule Take 1 capsule by mouth Daily. 06/22/20 23 Active liothyronine (CYTOMEL) 5 MCG tablet Take 1 tablet by mouth 2 (Two) Times a Day. 04/10/20 23 Active losartan (COZAAR) 25 MG tablet Take 1 tablet by mouth Daily. Active meclizine (ANTIVERT) 25 MG tablet Take 1 tablet by mouth Every 8 (Eight) Hours. Active busPIRone (BUSPAR) 10 MG tablet TAKE ONE TABLET BY MOUTH THREE TIMES DAILY for anxiety 10/09/19 24 Active metFORMIN ER (GLUCOPHAGE-XR) 500 MG 24 hr tablet Take 1 tablet by mouth Daily. 10/09/19 24 Active vitamin D (ERGOCALCIFEROL) 1.25 MG (26529 UT) capsule capsule Take 1 capsule by mouth Every 7 (Seven) Days. 10/25/19 24 Active pantoprazole (PROTONIX) 40 MG EC tablet Take 1 tablet by mouth Daily. 12/08/19 24 Active estradiol (ESTRACE) 0.1 MG/GM vaginal cream Insert 1 applicatorful twice a week by vaginal route, for UTI prevention. Active ondansetron ODT (ZOFRAN-ODT) 4 MG disintegrating tablet DISSOLVE ONE TABLET ON THE TONGUE every SIX hours as needed FOR nausea Active levothyroxine (SYNTHROID, LEVOTHROID) 125 MCG tablet Take 1 tablet by mouth Every Morning. 10/21/19 25 Active Wegovy 1.7 MG/0.75ML solution auto-injector INJECT 1.7 MG SUBCUTANEOUSLY every week 10/18/19 25 Active furosemide (LASIX) 20 MG tabletIndications: Swelling of lower extremity Take 1 tablet by mouth Daily As Needed (swelling). 30 tablet 11 01/10/20 25 Active Active Problems Problem Noted Date Diagnosed Date Pulmonary sarcoidosis 01/30/2024 Right ventricular dysfunction by TTE 10/17/2023 Assessment & Plan (11/22/2023 3:20 PM EDT): Echocardiogram shows right ventricular dysfunction of unclear etiology. Repeat echocardiogram today showed mildly reduced right ventricular systolic function. Discussed with Dr Vazquez, she would like to talk to pulmonology first to determine next step, RHC vs Bronchoscopy? ROMELIA on CPAP 10/17/2023 Obesity, Class III, BMI 40-49.9 (morbid obesity) 10/17/2023 Multiple pulmonary nodules (Max 7mm) 10/17/2023 Mediastinal lymphadenopathy 10/17/2023 Non-smoker 10/17/2023 JUSTICE (dyspnea on exertion) 10/11/2023 Assessment & Plan (11/22/2023 3:16 PM EDT): She completed a CT angio of chest on 10/10/2023 that revealed no evidence of PE or dissection. Bilateral upper lobe tree-in-bud nodularity, likely infectious or inflammatory. Moderate mediastinal and hilar lymphadenopathy. Differential diagnosis includes sarcoidosis, reactive lymphadenopathy or metastatic disease. She was evaluated by pulmonology, Dr. Schrader on 10/17/2023. He is considering a bronchoscopy with biopsies to rule out Sarcoidosis. Dr Vazquez has been communicating with Dr Schrader and will reach out to him to determine if she should proceed with a Bronchoscopy. Assessment & Plan (10/11/2023 11:52 AM EST): Unusual since she has no smoking history to have COPD. Wonder about her weight gain as a cause but it seems more sudden onset. CT PE protocol today JADEN. Also lymph node enlargement is abnormal. Will contact pulmonary to see if they can get her in for sooner appointment. Coronary disease is a possibility still will get a stress test to rule out significant stenosis. She does have a normal EKG and visually I do not see any coronary calcifications on her CT scan that has been uploaded in food[employer]de so I think this is less likely. But she does have a strong family history of coronary disease. Hypothyroidism (acquired) 10/10/2023 Diverticulitis 10/10/2023 GERD (gastroesophageal reflux disease) Encounters Date Type Department Care Team Description 05/19/2025 10:30 AM EDT Office Visit [facility] [address] [place] [address] Charis Vazquez MD Sarcoidosis of lung (Primary Dx); Class 3 obesity with alveolar hypoventilation, serious comorbidity, and body mass index (BMI) of 45.0 to 49.9 in adult; Hypertension, essential 05/19/2025 Travel from Last 3 Months Immunizations Immunization Administration Dates Next Due Fluzone (or Fluarix & Flulav al for VFC) >6mos 11/27/2019 Influenza, Unspecified 06/18/2018(Deferred: Gia ent decision) Shingrix 03/04/2022,10/20/2021 Family History Medical History Relation Name Comments Diabetes Brother 1 Diabetes Brother 2 Cancer Father Carson Wong Brother -cance r Diabetes Mother Rose Jaffe Brother Abhinav Wong Heart failure Mother Rose Jaffe Hypertension Mother Rose Jaffe Heart failure Sister Relation Name Status Comments Brother 1 Brother 2 Father Carson Wong Mother Rose Jaffe Sister Alive Social History Tobacco Use Types Packs/Day Years Used Date Smoking Tobacco: Never Passive Smoke Exposure: Never Smokeless Tobacco: Never Tobacco Cessation:Counseling Given: Yes Alcohol Use Standard Drinks/Week Comments Not Currently 0 (1 standard drink = 0.6 oz pur e alcohol) Once or twice a year Abuse Screen Answer Date Recorded Feels Unsafe at Home or Work/School no 12/07/2023 Feels Threatened by Someone no 0 12/2023 Does Anyone Try to Keep You From Having Contact with Others or Doing Things Outside Your Home? no 12/07/2023 Physical Signs of Abuse Present no 12/07/2023 Disabilities Answer Date Recorded Difficulty Concentrating, Remembering or Making Decisions no 12/07/2023 Difficulty Managing Errands Independently no 12/07/2023 Education Answer Date Recorded Help with school or training? Not on file Preferred Language Venezuelan 12/04/2023 Comments Unknown Sex and Gender Information Value Date Recorded Sex Assigned at Female 11/04/2024 9:33 AM EST Legal Sex Female 12:28 PM EDT Gender Identity Not on file Sexual Orientation Not on file Last Filed Vital Signs Vital Sign Reading Time Taken Comments Blood Pressure 110/68 05/19/2025 10:26 AM EDT Pulse 75 05/19/2025 10:26 AM EDT Temperature 36.7 C (98 F) 01/30/2024 3:09 PM EDT Respiratory Rate 18 01/30/2024 3:09 PM EDT Oxygen Saturation 97% 05/19/2025 10:26 AM EDT Inhaled Oxygen Concentration - - Weight 88 kg (194 lb) 05/19/2025 10:26 AM EDT Height 160 cm (5' 3 ) 05/19/2025 10:26 AM EDT Body Mass Index 34.37 05/19/2025 10:26 AM EDT Plan of Treatment Upcoming Encounters Date Type Department Care Team (Late st Contact Info) Description 07/23/2025 8:00 AM EST Office Visit [facility] [address] [place] [address] 07/23/2025 9:00 AM EST Office Visit [facility] [address] [place] [address] Kevin Schrader MD [address] [place] [address] 11/17/2025 9:30 AM EDT Ancillary Procedure [facility] [address] [place] [address] 11/17/2025 11:30 AM EDT Office Visit [facility] [address] [place] [address] Charis Vazquez MD [address] [facility] [place] [address] Health Maintenance Due Date Last Done Comments Annual Gynecologic Pelvic and Breast Exam 1960 TDAP/TD VACCINES (1 - Tdap) 11/14/1979 COLOGUARD 2005 COLON CANCER SCREENING 5 YEA R SIGMOIDOSCOPY 2005 COLONOSCOPY [address] SCREENING [address] COLONOGRAPHY 2005 FECAL OCCULT BLOOD TEST 2005 FIT Testing (1 year) 2005 Pneumococcal Vaccine 50+ (1 of 1 - PCV) 2010 ANNUAL PHYSICAL 09/25/2023 HEPATITIS C SCREENING 09/25/2023 MAMMOGRAM 02/24/2025 02/24/2023, 02/24/2023 INFLUENZA VACCINE 04/04/2025 07/17/2024, 11/27/2019 ZOSTER VACCINE Completed 03/04/2022, 10/20/2021 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
--- OUTSIDE RECORDS SUMMARY | 2025-06-24 16:19 | XMS_ITS | Continuity of Care Document ---
Author Organization [place] [employer] [facility] Address [address] [place] [id number] Assessment No assessment recorded. Plan of Treatment Reminders Order Date Submit Date Provider Last Modified By Organization Details Last Modified Time Details Appointments FOLLOW UP 30 2025 08:00A M Karolina Darling APRN Not available Not available Not available Lab HbA1c (hemoglob in A1c), blood 2024 025 [email or web address] [facility], [address] [place] [address], [phone], 06/06/2025 09:03:16 Referral None recorded. Procedures None recorded. Surgeries None recorded. Imaging MAMMO, screening , digital, bilateral - Late June please [address] (Counts Include [facility]), [address], [place], [address], 06/13/2025 09:15:17 Medication Orders Vitamin D3 50 mcg (2,000 unit) capsule 2024 025 [facility], [address] [place] [address], [id number], 06/10/2025 15:35:06 Wegovy 2.4 mg/0.75 mL subcutane ous pen injector 2024 025 [facility], [address] [place] [address], [id number], 06/06/2025 09:24:43 scopolami ne 1 mg over 3 days transderm al patch 2024 [facility], [address] [place] [address], [id number], 06/06/2025 14:41:52 Wegovy 1.7 mg/0.75 mL subcutane ous pen injector 2024 [facility], [address] [place] [address], [id number], 06/06/2025 09:24:42 Patient TargetsNo targets recorded. Patient InstructionsNo instructions recorded. Reason for Referral None Reported. Results Created Date Observation Date Name Description Value Unit Range Abnormal Flag Note LastModifiedBy Organization Detail LastModifiedTime 05/31/2005/31/2025 rapid SARS CoV 2 Ag, QL, IA, upper respi rator y speci men SARS CoV Ag negati ve Not Available [address], [address], 05/31/2025 11:32:24 05/31/2005/31/2025 rapid flu (A+B) Flu A negati ve Not Available [address], [address], 05/31/2025 11:32:29 05/31/2005/31/2025 rapid flu (A+B) Flu B negati ve Not Available [address], [address], 05/31/2025 11:32:29 06/06/2006/06/2025 HbA1c (hemo globi n A1c), blood HbA1c 5.3 Not Available [address], [address], 06/06/2025 08:07:52 Result Notes None recorded. Problems Name Problem SNOMED Code Status Onset Date Resolution Date Notes Provider Name and Address Organization Details Recorded Time Urinary tract infectio us disease 88863386 Completed 201805/23/2022 Problem Code: N39.0; Problem Code Type: ICD-10; RAVINDER pedro, [employer] 2 17:30:59 Urinary tract infectio us disease 71492388 Completed 201902/25/2020 Problem Code: N39.0; Problem Code Type: ICD-10; RAVINDER WOODY null, [employer] 2 17:30:59 Disorder of upper respirat ory system 342995776 Completed 201902/25/2020 Problem Code: J06.9; Problem Code Type: ICD-10; Not Available [facility] 2 21:22:54 Hypothyr oidism 33751062 Active 2019 Not Available [facility] 2 21:22:53 Hyperten sive disorder 00799966 Active 2019 Problem Code: I10; Problem Code Type: ICD-10; Not Available [facility] 2 21:22:53 Undiffer entiated inflamma tory polyarth ritis 720272649 Completed 201905/23/2022 Problem Code: M13.0; Problem Code Type: ICD-10; RAVINDER WOODY null, [employer] 2 17:30:59 Finding of body mass index 484097482 Completed 201909/17/2020 Problem Code: Z68.41; Problem Code Type: ICD-10; Not Available [facility] 2 21:22:57 Acute maxillar y sinusiti s 34588077 Completed 201902/25/2020 Problem Code: J01.00; Problem Code Type: ICD-10; Not Available [facility] 2 21:22:53 Dysuria 66839660 Completed 201902/25/2020 Problem Code: R30.0; Problem Code Type: ICD-10; Karen Rashider, [employer] [address] [facility], [place], [address] , [employer] 5 08:46:29 Vitamin D deficien 67613267 Completed 201905/23/2022 Problem Code: E55.9; Problem Code Type: ICD-10; Karen Darling, [employer] RECEIVED [address] [facility], [place], [address] , [employer] 5 08:58:38 Low back pain 578883246 Completed 201905/23/2022 Problem Code: M54.5; Problem Code Type: ICD-10; RAVINDER MYNEAR null, [employer] 2 17:30:59 General examinat ion of patient Completed 201905/23/2022 RAVINDER MYNEAR null, [employer] 2 17:30:59 Screenin g mammogra phy Completed 201905/31/2020 Problem Code: Z12.31; Problem Code Type: ICD-10; Not Available [facility] 21:22:55 Finding of body mass index 524645329 Active 2019 Problem Code: Z68.41; Problem Code Type: ICD-10; Not Available [facility] 21:22:56 Sampling of vagina for Papanico laou smear Completed 201909/17/2020 Problem Code: Z01.419; Problem Code Type: ICD-10; Not Available [facility] 2 21:22:55 Herpes zoster auricula ris 87402107 Completed 201905/23/2022 Problem Code: B02.8; Problem Code Type: ICD-10; RAVINDER MYNEAR null, [employer] 2 17:30:59 Herpes zoster 6547710 Completed 201905/23/2022 Problem Code: B02.9; Problem Code Type: ICD-10; RAVINDER MYNEAR null, [employer] 2 17:30:59 Generali zed anxiety disorder 79638334 Completed 201905/23/2022 Problem Code: F41.1; Problem Code Type: ICD-10; RAVINDER WOODY null, [employer] 2 17:30:59 Autoimmu ne thyroidi tis 31226269 Active 2019 Problem Code: E06.3; Problem Code Type: ICD-10; Not Available [facility] 2 21:22:53 New daily persiste nt headache 00704275639 9105 Completed 201905/23/2022 Problem Code: G44.52; Problem Code Type: ICD-10; RAVINDER WOODY null, [employer] 2 17:30:59 Localize d edema 250011420 Completed 201905/23/2022 Problem Code: R60.0; Problem Code Type: ICD-10; RAVINDER BONDSR null, [employer] 2 17:30:59 Acute sinusiti s 86232150 Completed 202005/23/2022 Problem Code: J01.90; Problem Code Type: ICD-10; Karen Darling APRN [address] [place] [address], [address] , [employer] 5 08:54:52 Acute serous otitis media of bilatera l ears 49280860562 14253 Completed 202005/23/2022 Problem Code: H65.03; Problem Code Type: ICD-10; RAVINDER BONDSR null, [employer] 2 17:30:59 Acute sinusiti s 87166320 Completed 202006/03/2021 Problem Code: J01.90; Problem Code Type: ICD-10; Karen Darling APRN [address] [place], [address] , [employer] 5 08:54:52 Acute sinusiti s 82169297 Completed 202006/03/2021 Problem Code: J01.90; Problem Code Type: ICD-10; Karen Darling APRN [address] [place] [address], [address] , [employer] 5 08:54:52 Acute sinusiti s 38515562 Completed 202006/03/2021 Problem Code: J01.90; Problem Code Type: ICD-10; Karen Darling APRN [address] [place] [address], [address] , [employer] 5 08:54:52 Dysuria 70736520 Completed 202005/23/2022 Problem Code: R30.0; Problem Code Type: ICD-10; Karen Darling APRN [address] [place] [address], [address] , [employer] 5 08:46:29 Negative dysphoto psia 489498166 Completed 202005/23/2022 Problem Code: H53.8; Problem Code Type: ICD-10; RAVINDER pedro, [employer] 2 17:30:59 History of sexually transmit kat disease 074702315 Completed 202105/23/2022 Problem Code: Z86.19; Problem Code Type: ICD-10; RAVINDER SERAFINSONJA pedro, [employer] 2 17:30:59 Prediabe cassie 518323259 Active 2023 Karen Darling APRN [address] [place] [address], [address] , [employer] 5 08:51:21 Body mass index 30+ - obesity 123886529 Active 2024 Karen Darling APRN [address] [place] [address], [address] , [employer] 5 14:09:04 Acute sinusiti s 23805570 Active 2024 Problem Code: J01.90; Problem Code Type: ICD-10; Karen Darling APRN [address] [place] [address], [address] [place] [address] , [employer] 5 08:54:52 Nasal sinus pressure sensatio n Active 2024 ORTEGA Jett [address] [place] [address], [address] [place] [address] , [employer] 5 11:43:29 Vitamin D deficien cy 80970718 Active 2024 Problem Code: E55.9; Problem Code Type: ICD-10; Karen Darling APRN [address] [place] [address], [address] [place] [address] , [employer] 5 08:58:38 Motion sickness 92195749 Active 2024 Karen Darling APRN [address] [place] [address], [address] [place] [address] , [employer] 5 14:09:04 Notes:*Problem Name: Vaginit is, vulvitis [...] 24 Most Recent Mammogram completed RAVINDER WOODY [employer] 07/17/2024 09:39:13 07/27/20 19 appendectomy completed Not Available [facility] 05/10/2022 22:56:06 07/27/20 19 cholecystectomy completed Not Available [facility] 05/10/2022 22:56:07 07/27/20 19 hysterectomy completed Not Available [facility] 05/10/2022 22:56:08 hand repair completed NIESHA [place] [employer] [facility] 01/20/2023 16:53:58 foot repair [facility] 01/20/2023 16:54:07 repair of shoulder completed BASIM MADRIGAL [facility] 01/20/2023 16:54:13 Imaging Results None recorded. Procedure Notes None recorded. Medical Equipment None Reported. Allergies Allergen ID Allergen Name Allergen Category Reaction Reaction Severity Criticality Documentation Date Start Date Code Code System Note Provider Name and Address Organization Details Recorded Time 02630 Ceclor medicatio n Not available Not available Not available 05/10/202240216 5 RxNorm Not Available [facility] 22:54:21 53827 Paxlovid medicatio n vomiting mild low 10/11/2022 Karen Darling, DAFNE [address] [place] [address], [address] [place] [address] [employer] 17:27:49 Medications Name Sig Start Date [...] propionate 50 mcg/actuati on nasal spray,suspe nsion [place] 1 spray into each nostril every day [...] Updated DateTime 5 165.1 cm 32.4 kg/m2 31910.7 9 g 98 [degF] 66 /min 93 % 93 % 107/69 mm[Hg] RAVINDER WOODY [employer] 5 08:28:33 Social History Question Answer Notes LastModified by Organizat ion Details LastModified Time Tobacco Smoking Status Never Smoker Irma pedro, [employer] 10/10/2022 13:50:13 Is Your Home Air [...] Or The Highest Degree You Have Received? [id number] Information not available 05/23/2022 Who Is Your Employer? [employer] [email or web address] Information not available 06/22/2023 Have There Been Any Changes To Your Family Or Social Situation? No Information no t available 05/23/2022 Are There Any Guns Present In Your Home? No Information not available 05/23/2022 How Many Times In The Past Year Have You Used An Illegal Drug Or Used A Prescription Medication For Nonmedical Reasons? 0 [email or web address] Information not available 06/22/2023 Do You Have A Medical Power Of Street Car Inspector? No Information not available 05/23/2022 What Was The Date Of Your Most Recent Tobacco Screening? 06/06/2025 Information not available 06/06/2025 Do You Have Any Pets? Yes Information not available 05/23/2022 What Is Your Relationship Status? Information not available 05/23/2022 Do You Use Your Seat Belt Or Car Seat Routinely? Yes Information not available 05/23/2022 Are You Sexually Active? No [email or web address] Information not available 06/01/2024 Do You Have Smoke And Carbon Monoxide Detectors In Your Home? Yes Information not available 05/23/2022 Are You Passively Exposed To Smoke? Yes [email or web address] Information no t available 01/20/2023 Are There Any Smokers In Your House? Yes [email or web address] Information not available 01/20/2023 Do You Participate [...] is your level of alcohol consumption? None [email or web address] Information not available 01/20/2023 Are you currently employed? Yes [email or web address] Information not available 06/22/2023 Do you have [...] anxious, or unable to sleep at night)? [id number] [email or web address] Information not available 06/01/2024 Do you have difficulty concentrating, remembering or making decisions? No Information no t available 05/23/2022 Family History Relationship Description Onset Age of this Age Resolved Age Notes LastModified by Organization Details LastModified Time Mother Family history of Polycystic kidney Not available 13:33:39 Father Family history of malignant neoplasm [email or web address] Not available 13:34:23 Brother Family history of malignant neoplasm [email or web address] Not available 13:34:23 Medical History Condition Response [...] reconstituted, 0.5 mL, PF 4 completed RAVINDER pedro, [employer] 04/15/2024 09:56:58 COVID-19, mRNA, LNP-S, PF, 100 mcg/0.5mL dose or 50 mcg/0.25mL dose 1 completed ARVINDER MYNEAR null, [employer] 09/28/2022 17:25:51 COVID-19, mRNA, LNP-S, PF, 100 mcg/0.5mL dose or 50 mcg/0.25mL dose 1 completed RAVINDER MYNEAR null, [employer] 09/28/2022 17:25:51 zoster recombinant 2 completed Not Available [facility] 05/10/2022 23:39:19 zoster recombinant 2 completed Not Available [facility] 05/10/2022 23:39:19 Influenza, split virus, trivalent, PF 4 completed Karen Darling APRN [address] [place] [address], [address], [employer] 07/21/2024 17:06:28 Influenza, split virus, quadrivalent, PF 0 completed RAVINDER SERAFINNEAR null, [employer] 09/28/2022 17:25:51 Past Encounters Encounter ID Performer Location Encounter Start Date Encounter Closed Date Diagnosis/Indication Diagnosis SNOMED-CT Code Diagnosis ICD10 Code Diagnosis IMO Codes Diagnosis Note [id number] ORTEGA Jett [address] [address] 05/31/2025 11:15:48 06/02/2025 16:16:22 Nasal sinus pressure sensation [id number] J34.89 096138 POC testing negative. Start daily flonase and cetirizine . If symptoms worsen or you develop a fever, call Monday. Otherwise keep scheduled follow-up on Jun 06 with Karen. [id number] Karen Darling APRN [address] [address] 06/06/2025 08:09:22 06/06/2025 12:29:30 Prediabetes 364583182 R73.03 Continue metformin, Wegovy,low carb diet, exercise, and weight loss. Screening mammography 24 579917 Z12.31 99457778 Body mass index 30+ - obesity 284987884 E66.9 Continue Wegovy at 1.7 mg weekly. Vitamin D deficiency 347 03431 E55.9 55756 Stop weekly ergocal and go to daily for maintenanc e. Motion sickness 74992487 T75.3XXA 786512 Going on a cruise and requested scop patches Health Concerns Section Related Observation LastModified by Organization Detai ls LastModified Time None Recorded Concern Status LastModified by Organization Details LastModified Time None Recorded Payers Encounter Date Sequence Insurance Name Policy Number Policy Doshi Covered Member ID Doshi Member ID Guarantor Name 06/06/2025 1 [place] [id number] Tiffani Ralph [id number] Tiffani Ralph Notes Date Note Type Note Provider Name and Address Organization Details Recorded Time 025 text/ht ml Overweight/ObeseReported by PatientHPIFor co-morbidities, [...] Wegovy and metformin. Feels great. Karen Darling, DAFNE [address] [facility], [place], [address], [facility] [employer] 06/06/2025 14:09:27 OBGyn Episode No OBEpisode recorded.
--- OUTSIDE RECORDS SUMMARY | 2025-06-24 16:19 | XMS_ITS | Data Portability ---
Author Organization [facility] Olivier MOREHEAD CLOSED Address [address] [place] [address] Care Team Providers Care French Comber Name Role Phone IMANI DARLINGY Primary Care Provider Assessment No assessment recorded. Plan of Treatment Reminders Order Date Submit Date Provider Last Modified By Organization Details Last Modified Time Details Appointments None recorded. Lab TSH, serum or plasma 2020 [facility], [address] [place] [address], [id number], 11:53:54 T4, free, serum 2020 [facility], [address] [place] [address], [id number], 11:53:59 T3, free, serum or plasma 2020 [facility], [address] [place] [address], [id number], 11:53:56 glycohemog lobin, total, blood 2020 [facility], [address] [place] [address], [id number], 11:11:35 BMP, serum or plasma 2020 [facility], [address] [place] [address], [id number], 11:48:13 TSH, serum or plasma 2019 [facility], [address] [place] [address], [id number], 09:51:23 T4, free, serum 2019 [facility], [address] [place] [address], [id number], 09:49:44 T3, free, serum or plasma 2019 [facility], [address] [place] [address], [id number], 09:49:45 Referral medical nutrition therapy referral 2020 [facility] Not available 10:17:46 Procedures None recorded. Surgeries None recorded. Imaging None recorded. Medication Orders phentermin e 37.5 mg capsule 2020 [facility], [address] [place] [address], [id number], 09:54:50 liothyroni ne 5 mcg tablet 2020 [facility], [address] [place] [address], [id number], 09:00:15 phentermin e 37.5 mg capsule 2020 [facility], [address] [place] [address], [id number], 09:54:50 levothyrox ine 100 mcg tablet 2020 [facility], [address] [place] [address], [id number], 2 13:52:59 liothyroni ne 5 mcg tablet 2020 021 [facility]OV[facility], [address] [place] [address], [id number], 1 10:25:18 phentermin e 15 mg capsule 2020 021 zainab [facility], [address] [place] [address], [id number], 1 10:25:01 liothyroni ne 5 mcg tablet 2020 021 CHRISTY [facility], [address] [place] [address], [id number], 1 09:17:32 levothyrox ine 100 mcg tablet 2020 021 zainab [facility], [address] [place] [address], [id number], 2 13:52:59 liothyroni ne 5 mcg tablet 2019 020 [facility], [address] [place] [address], [id number], 0 14:40:18 levothyrox ine 100 mcg tablet 2019 020 zainab [facility], [address] [place] [address], [id number], 2 13:52:59 Patient TargetsNo targets recorded. Patient Instructions Encounter Date Encounter Id Patient Instructions Last Modified By Organization Details Last Modified Time 07/13/2020 [id number] When You Want to Lose Weight: Care Instructions [email or web address] Not available 07/13/2020 14:20:11 Reason for Referral Medical Nutrition Therapy Re ferral for Morbid obesity Referring Physician: Prudence Taylor, Endocrinology, Encounter Date: 07/15/2021 Results Created Date Observation Date Name Description Value Unit Range Abnormal Flag Note LastModifiedBy Organization Detail LastModifiedTime 09/30/19 21 09/30/2020 T4, free, serum T4,free 1.15 NG/dL 0.93-1 .70 normal Not Available [facility] [address] [place] [address], [id number], 09/30/2020 09:49:43 09/30/19 21 09/30/2020 T3, free, serum or plasm a T3 free 3.72 pg/mL 2.00-4 .40 normal Not Available [facility] [address] [place] [address], [id number], 09/30/2020 09:49:45 09/30/1909/30/2020 TSH, serum or plasm a TSH 0.797 uIU/m L 0.290- 5.500 normal Not Available [facility] [address] [place] [address], [id number], 09/30/2020 09:51:23 07/15/20 21 07/15/2021 GLYCO HEMOG LOBIN A1C glyco HGB A1C 5.6 % 0.0-5. 6 normal Not Available [facility] [address] [place] [address], [id number], 07/15/2021 11:11:34 07/15/20 21 07/15/2021 GLYCO HEMOG LOBIN A1C estimated avg. glucose 114 mg/dL _(jessica c) normal A1c value s betwe en 5.7% to 6.4% indic ate predi abete s. Resul ts 6.5% or great er is diagn ostic of diabe cassie. Ameri can [employer]abe cassie [employer] iatio n (diab etes. org) Not Available [facility] [address] [place] [address], [id number], 07/15/2021 11:11:34 07/15/20 21 07/15/2021 BASIC METAB OLIC PANEL glucose 85 mg/dL 74-100 normal Not Available [facility] [address] [place] [address], [id number], 07/15/2021 11:48:12 07/15/20 21 07/15/2021 BASIC METAB OLIC PANEL blood urea nitrogen 17 mg/dL 6-20 normal Not Available [facility] [address] [place] [address], [address], 07/15/2021 11:48:12 07/15/20 21 07/15/2021 BASIC METAB OLIC PANEL creatinine 0.85 mg/dL 0.50-0 .95 normal Not Available [facility] [address] [place] [address], [address], 07/15/2021 11:48:12 07/15/20 21 07/15/2021 BASIC METAB OLIC PANEL BUN/creatini ne ratio 20 (calc ) 10-20 normal Not Available [facility] [address] [place] [address], [address], 07/15/2021 11:48:12 07/15/20 21 07/15/2021 BASIC METAB OLIC PANEL sodium 140 mmol/ L 136-14 5 normal Not Available [facility] [address] [place] [address], [address], 07/15/2021 11:48:12 07/15/20 21 07/15/2021 BASIC METAB OLIC PANEL potassium 4.3 mmol/ L 3.4-5. 0 normal Not Available [facility] [address] [place] [address], [address], 07/15/2021 11:48:12 07/15/20 21 07/15/2021 BASIC METAB OLIC PANEL chloride 104 mmol/ L 98-107 normal Not Available [facility] [address] [place] [address], [address], 07/15/2021 11:48:12 07/15/20 21 07/15/2021 BASIC METAB OLIC PANEL carbon dioxide 25 mmol/ L 22-31 normal Not Available [facility] [address] [place] [address], [address], 07/15/2021 11:48:12 07/15/20 21 07/15/2021 BASIC METAB OLIC PANEL anion gap 11 (calc ) 7-25 normal Not Available [facility] [address] [place] [address], [address], 07/15/2021 11:48:12 07/15/20 21 07/15/2021 BASIC METAB OLIC PANEL calcium 9.2 mg/dL 8.6-10 .2 normal Not Available [facility] [address] [place] [address], [address], 07/15/2021 11:48:12 07/15/20 21 07/15/2021 BASIC METAB OLIC PANEL GFR 86 >= 60 normal Not Available [facility] [address] [place] [address], [address], 07/15/2021 11:48:12 07/15/20 21 07/15/2021 BASIC METAB OLIC PANEL GFR non- 74 >= 60 normal NOT E Chron ic kidne y disea se is defin ed as kidne y damag e for more than 3 month s or a GFR less than 60 mL/mi n/1.7 3 m2 for great er than 3 month s. This calcu latio n has not been valid ated in pregn ant women . For pedia tric patie nts refer to [employer] [employer] ation https ://fabian boyer.deborah rg/pr jacinda ional s/KDO QI/gf r_cal culat orPed Not Available [facility] [address] [place] [address], [address], 07/15/2021 11:48:12 07/15/20 21 07/15/2021 TSH TSH 2.260 uIU/m L 0.270- 4.200 normal Not Available [facility] [address] [place] [address], [address], 07/15/2021 11:53:54 07/15/20 21 07/15/2021 T3 FREE T3 free 3.26 pg/mL 2.00-4 .40 normal Not Available [facility] [address] [place] [address], [address], 07/15/2021 11:53:56 07/15/20 21 07/15/2021 T4,FR EE T4,free 0.76 NG/dL 0.93-1 .70 low Not Available [facility] [address] [place] [address], [address], 07/15/2021 11:53:59 09/02/20 21 09/02/2021 T4,FR EE T4,free 1.12 NG/dL 0.93-1 .70 normal Not Available [facility] [address] [place] [address], [address], 09/02/2021 16:08:25 09/02/20 21 09/02/2021 T3 FREE T3 free 3.51 pg/mL 2.00-4 .40 normal Not Available [facility] [address] [place] [address], [address], 09/02/2021 16:08:26 09/02/20 21 09/02/2021 TSH TSH 0.400 uIU/m L 0.270- 4.200 normal Not Available [facility] [address] [place] [address], [address], 09/02/2021 16:08:27 Result Notes None recorded. Problems No Known Problems Procedures Surgical History Date Name Laterality Status Provider Name and Address Organization Details Recorded Time [place] [facility] [place] 15:10:58 [place] [facility] [place] 15:11:04 [place] [facility] [place] 15:11:09 Remove [place]ils and [place] [facility] [place] 15:11:13 Imaging Results None recorded. Procedure Notes None recorded. Medical Equipment None Reported. Allergies Allergen ID Allergen Name Allergen Category Reaction Reaction Severity Criticality Documentation Date Start Date Code Code System Note Provider Name and Address Organization Details Recorded Time [id number] codeine medicatio n Not available Not available Not available 07/28/20162014 2670 RxNorm Comme nt: Creat ed By: Marcell HartmannCrea kat Date: 2014 8:53: 12 AM; Not Available [facility] 6 13:51:57 [id number] Keflex medicatio n Not available Not available Not available 07/28/20162014 7 RxNorm Comme nt: Creat ed By: Troy Norwood ;Crea kat Date: 2014 8:52: 22 AM; Not Available [facility] 6 13:54:49 [id number] acetamino phen / oxycodone medicatio n Not available Not available Not available 06/21/201769169 3 [facility] 15:10:12 Medications Name Sig Start Date Stop Date Status Note LastModified by Organization Details LastModified Time azithromy sierra 250 mg tablet Daily 07/13 completed Frequenc y: daily;Me dication Descript ion: azithrom ycin; Dosage:1 ; Route:or al; refills: 0 Not Available Not Available Not Available Prilosec 20 mg capsule,d elayed release Every night at bedtime 07/13 completed Frequenc y: qhs;Medi cation Descript ion: omeprazo le; Dosage:1 ; Route:or al; refills: 5; Quantity :30 enteric coated capsule Not Available Not Available Not Available phentermi ne 15 mg capsule Take 1 capsule every day by oral route in the morning for 30 days. 12/30 completed Dose increase d Not Available Not Available Not Available liothyron ine 5 mcg tablet TAKE 1 TABLET 1 TIME EACH DAY IN THE MORNING WITH LEVOTHYR OXINE AND TAKE 1 TABLET AT BEDTIME active Not Available Not Available No t Available levothyro xine 100 mcg tablet TAKE 1 TABLET 1 TIME EACH DAY IN THE MORNING 09/06 completed 07/15/21 -03/24 Not Available Not Available Not Available venlafaxi ne 100 mg tablet Daily 07/13 completed Frequenc y: daily;Me dication Descript ion: venlafax ine; Dosage:1 ; Route:or al; refills: 0 Not Available Not Available Not Available buspirone 10 mg tablet Take 1 tablet 3 times a day by oral route. active Not Available Not Available No t Available Synthroid 75 mcg tablet Daily 07/13 completed Frequenc y: daily;Me dication Descript ion: levothyr oxine; Dosage:1 ; Route:or al; refills: 0; Quantity :30 tablet Not Available Not Available Not Available fluoxetin e 10 mg capsule Take 1 capsule every day by oral route. active Not Available Not Available No t Available estradiol 2 mg tablet Daily 07/13 completed Duration : 10 days;Vinny quency: daily;Me dication Descript ion: estradio l; Dosage:1 ; Route:or al; refills: 0; Quantity :30 tablet Not Available Not Available Not Available diclofena c sodium 75 mg tablet,de layed release Take 1 tablet twice a day by oral route for 30 days. 07/13 completed Not Available Not Available Not Available furosemid e 20 mg tablet Take 1 tablet every day by oral route. active Not Available Not Available No t Available fluoxetin e 20 mg capsule Take 1 capsule every day by oral route. active Not Available Not Available No t Available phentermi ne 37.5 mg capsule Take 1 capsule every day by oral route in the morning for 30 days. 07/15 completed Not Available Not Available Not Available levothyro xine 112 mcg tablet TAKE 1 TABLET ONCE A DAY IN THE MORNING ON AN EMPTY STOMACH. 2021 active Not Available Not Available Not Avai lable Vitals Date Recorded Body height Body mass index (BMI) Body weight Heart rate Systolic And Diastolic Provider Name and Address Organization Details Last Updated DateTime 10/14/2020 165.1 cm 41.8 kg/m2 655913.6 8 g 76 /min 126/64 mm[Hg] Flor Noriega [facility] 10/14/2020 09:07:15 Date Recorded Body height Body mass index (BMI) Body weight Heart rate Systolic And Diastolic Provider Name and Address Organization Details Last Updated DateTime 12/30/2020 165.1 cm 40.8 kg/m2 351527.1 3 g 72 /min 118/72 mm[Hg] Mercedes Yarbrough [facility] 12/30/2020 10:13:54 Date Recorded Body height Body mass index (BMI) Body weight Heart rate Systolic And Diastolic Provider Name and Address Organization Details Last Updated DateTime 03/30/2021 165.1 cm 39.6 kg/m2 781206.9 8 g 76 /min 120/68 mm[Hg] Flor Noriega [facility] 03/30/2021 08:37:10 Date Recorded Body height Body mass index (BMI) Body weight Heart rate Systolic And Diastolic Provider Name and Address Organization Details Last Updated DateTime 07/13/2020 165.1 cm 41.3 kg/m2 799831.9 1 g 76 /min 122/78 mm[Hg] Flor [facility] 07/13/2020 13:57:57 Date Recorded Body height Body mass index (BMI) Body weight Heart rate Systolic And Diastolic Provider Name and Address Organization Details Last Updated DateTime 07/15/2021 165.1 cm 42.6 kg/m2 919460.6 5 g 77 /min 130/70 mm[Hg] Sarah Angeles [facility] 07/15/2021 09:48:27 Social History Question Answer Notes LastModified by Organizat ion Details LastModified Time Tobacco Smoking Status Never Smoker [facility]2017 15:10:31 What Was The Date Of Your Most Recent Tobacco Screening? 06/21/2017 Information n ot available 10/22/2019 Sex: Unknown Functional Status None recorded. Mental Status None recorded. Family History Nothing Reported. Medical History Condition Response Diabetes N Blood Thinners N Arthritis Y Heart Conditions N Sleep Apnea Y Anesthesia Complications Y Liver Disease N Migraines N Kidney Disease N Gynecological HistoryNo gynecological history recorded. Obstetrics History GPAL:G 0 P 0 0 0 0 Past Encounters Encounter ID Performer Location Encounter Start Date Encounter Closed Date Diagnosis/Indication Diagnosis SNOMED-CT Code Diagnosis ICD10 Code Diagnosis IMO Codes Diagnosis Note [id number] MIKA RODRIGUEZ MD [facility] [address] [place] [address] 06/21/2017 14:05:29 06/22/2017 07:41:34 Osteoarthritis of knee 785236110 M17.12 Ms Loree appears to have exacerbate d previously asymptomat ic OA of the kneeThe knee is stable on examinatio n today and she does not appear to have an acute medial meniscus tear on examinatio n. I recommend a course of PT and NSAIDs [id number] TIEN WOLFF MD [facility] [address] [place] [address] 12/17/2019 07:54:53 12/17/2019 09:25:12 Anti-nuclear factor detected 818786216 R76.8 a very pleasant 59-year-ol d female seen today for evaluation of a positive ALLI screen. She is seen today on request of her primary care physician Dr. Fred Darling. She has a normal metabolic panel, normal TSH and normal ESR at 17 mm per hour. Rheumatoid factor was also negative Her clinical history, review of systems as well as limited examinatio n is without any clinical stigmata of connective tissue disease process. In particular I did not see any features to suggest systemic lupus, primary Sjogren's syndrome or mixed connective tissue disease process. Similarly she does not have any features to suggest rheumatoid arthritis. In my opinion, her ALLI screen is false positive and does not need any further investigat ions. This is discussed with the patient and she is reassured. Generalize d osteoarthritis 831728142 M15.9 her symptoms of diffuse joint pains are consistent with degenerati ve osteoarthr itis. She has typical involvemen t of the weightbear ing joints involving spine, hips, knees as well as ankles and feet. I discussed the diagnosis and the natural history of osteoarthr itis. I emphasized on lifestyle modificati ons especially weight loss and low impact exercise. I suggested her to go on strict low carbohydra te diet. I also suggested her 12 hours of fasting every night from 7 PM to 7 AM. She can maintain when necessary use of diclofenac topical gel as well as oral NSAIDs only as needed. Add fish oil 1000 mg twice a day. She is comfortabl e with the discussion . I will see her in 6 months sooner if needed. [id number] TIEN WOLFF MD [facility] [address] [place] [address] 04/29/2020 07:59:58 04/30/2020 13:38:33 Generalized osteoarthritis 304649038 M15.9 59-year-ol d female with generalize d osteoarthr itis. No evidence of rheumatoid arthritis or connective tissue disease process noted. X-rays of bilateral hip and knee joints were reviewed with degenerati ve changes but without any acute findings. Encouraged to maintain weight loss program and low impact exercise. I suggested her to go on strict low carbohydra te diet. I also suggested her 12 hours of fasting every night from 7 PM to 7 AM. She can maintain when necessary use of diclofenac only as needed. fish oil 1000 mg twice a day. reminded to follow up with the PCP once year including labs, CBC and CMP on account of taking NSAIDs. [id number] PRUDENCE TAYLOR MD ENDOCRINO [facility] [address] [place] [id number] 07/13/2020 13:38:56 07/13/2020 14:20:11 Hypothyroidism 86654916 E03.9 New office visit evaluation hypothyroi dism TSH of 41.85 on 2019 TSH of 3.34 [0.27 4 .2], free T3 of 1.99 pg per mL [2.2 4 .0], free T4 of 1.51 [0.93 1 .7], TPO antibody less than 15 and thyroglobu ronen antibody of 69 [normal less than 115] still complainin g of hypothyroi d symptoms. Suggested a trial of combine thyroid hormone replacemen t therapy She verbalized understand ing and agreed Started liothyroni ne 5 g every a.m. and 5 g every bedtime Continue levothyrox ine 100 g every am Thyroid function test before next visit after 3 months and further evaluation . Obesity 524146703 E66.9 BMI 41.3 Counseled about the importance of behavior lifestyle changes i.e. low-calori e diet and activity Qualifies criteria for pharmacolo gic therapy Consider pharmacolo gic therapy after 3 months of optimizing behavior lifestyle changes Patient verbalized understand ing and agreed with the above mentioned plan of care. I would like to thank August Darling for the opportunit y to participat e in the care of this patient. [id number] [place] [address] [place] [phone] 10/14/2020 09:01:16 10/14/2020 09:20:12 Hypothyroidism 91532664 E03.9 Follow-up visit evaluation hypothyroi dism TSH of 41.85 on 2019 TSH of 3.34 [0.27 4 .2], free T3 of 1.99 pg per mL [2.2 4 .0], free T4 of 1.51 [0.93 1 .7], TPO antibody less than 15 and thyroglobu ronen antibody of 69 [normal less than 115] Repeat laboratory workup on 09/30/2019 showed TSH of 0.7, free T4 1.15 and Free T3 of 3.7 Continue current combined thyroid hormone replacemen t therapyCon tinue liothyroni ne 5 g every a.m. and 5 g every bedtime Continue levothyrox ine 100 g every am Prescripti on Renewed Obesity 031775857 E66.9 BMI Is up to 41.8 from 41.3 Current weight of 251 from 259 Currently following 1200-calor ie diet Counseled about the importance of behavior lifestyle changes i.e. low-calori e diet and activity Qualifies criteria for pharmacolo gic therapy Start low-dose phentermin e 15 mg daily Benefits and side effects discussed with patient in detail. No history of hypertensi on or glaucoma. Blood pressure in the office of 126/64 Pulse of 76 Mika obtained and reviewed She verbalized an understand ing and agreed to start therapy Controlled substance agreement signed Patient verbalized understand ing and agreed with the above mentioned plan of care. [id number] PRUDENCE TAYLOR MD [facility] [address] [place] [address] 12/30/2020 09:58:48 12/30/2020 11:21:54 Hypothyroidism 24570905 E03.9 Follow-up visit evaluation hypothyroi dism TSH of 41.85 on 2019 TSH of 3.34 [0.27 4 .2], free T3 of 1.99 pg per mL [2.2 4 .0], free T4 of 1.51 [0.93 1 .7], TPO antibody less than 15 and thyroglobu ronen antibody of 69 [normal less than 115] Repeat laboratory workup on 09/30/2019 showed TSH of 0.7, free T4 1.15 and Free T3 of 3.7 Continue current combined thyroid hormone replacemen t therapyCon tinue liothyroni ne 5 g every a.m. and 5 g every bedtime Continue levothyrox ine 100 g every am Prescripti on Renewed Obesity 184979191 E66.9 BMI Is down to 40.8 from 41.8 from 41.3 Current weight of 245 pounds down from 251 from 259 Currently following 1200-calor ie diet Counseled about the importance of behavior lifestyle changes i.e. low-calori e diet and activity Qualifies criteria for pharmacolo gic therapy Further increase phentermin e 37.5 mg daily Benefits and side effects rediscusse d with patient in detail. No history of hypertensi on or glaucoma. Blood pressure in the office of 118/72 Pulse of 72 Mika obtained and reviewed She verbalized an understand ing and agreed to start therapy Patient verbalized understand ing and agreed with the above mentioned plan of care. [id number] PRUDENCE TAYLOR MD [facility] [address] [place] [id number] 03/30/2021 08:25:10 03/30/2021 09:08:59 Obesity 757163430 E66.9 BMI Is down to 39.6 from 40.8 from 41.8 from 41.3 Current weight of 238 from 245 pounds down from 251 from 259 Currently following 1200-calor ie diet Counseled about the importance of behavior lifestyle changes i.e. low-calori e diet and activity Qualifies criteria for pharmacolo gic therapy Contain phentermin e 37.5 mg daily Benefits and side effects rediscusse d with patient in detail. No history of hypertensi on or glaucoma. Blood pressure in the office of 120/68 Pulse of 76 Mika obtained and reviewed She verbalized an understand ing and agreed to start therapy Hypothyroidism 20800367 E03.9 Follow-up visit evaluation hypothyroi dism TSH of 0.797 on 09/30/2020 Free T4 1 0.15 and free T3 of 3.7 Continue current combined thyroid hormone replacemen t therapy Continue liothyroni ne 5 g every a.m. and 5 g every bedtime Continue levothyrox ine 100 g every am Patient verbalized understand ing and agreed with the above mentioned plan of care. [id number] PRUDENCE TAYLOR MD [facility] [address] [place] [phone] 07/15/2021 09:26:34 07/15/2021 09:59:58 Hypothyroidism 87649889 E03.9 Clinically still complainin g of weight loss Follow-up visit evaluation hypothyroi dism TSH of 0.797 on 09/30/2020 Free T4 1 0.15 and free T3 of 3.7Continu e current combined thyroid hormone replacemen t therapy Continue liothyroni ne 5 g every a.m. and 5 g every bedtime Continue levothyrox ine 100 g every am Patient verbalized understand ing and agreed with the above mentioned plan of care. Family his tory of diabetes mellitus [id number] Z83.3 Evaluate for diabetes given her family history Patient verbalized understand ing and agreed with the above mentioned plan of care. Morbid obesity [id number] E66.01 BMI Is up to 42.6 from 39.6 from 40.8 from 41.8 from 41.3 Current weight of 256 from 238 from 245 pounds down from 251 from 259 Currently following 1200-calor ie diet Counseled about the importance of behavior lifestyle changes i.e. low-calori e diet and activity Qualifies criteria for pharmacolo gic therapy She could not tolerate phentermin e 37.5 mg daily [ felt shaky and jittery] We discussed the option of GLP 1 therapy which is is still very extensive unfortunat kuldip. Health Concerns Section Related Observation LastModified by Organization Detai ls LastModified Time None Recorded Concern Status LastModified by Organization Details LastModified Time None Recorded Advance Directives Directive None Recorded Payers Insurance Date Sequence Insurance Name Policy Number Policy Doshi Covered Member ID Doshi Member ID Guarantor Name 10/10/2022 1 [id number] [id number] Tiffani Ralph [id number] Tiffani Ralph Notes Date Note Type Note Provider Name and Address Organization Details Recorded Time 07/13/2020 text/html 59-year-old female patient with a past medical history as detailed in the problem is significant for obesity, obstructive sleep apnea on CPAP, osteoarthritis,primar y hypothyroidism on thyroid hormone replacement therapy seen in the office today for hypothyroidism evaluation further management. Requesting provider: Fred Darling APRN Onset of hypothyroidism: Several years Current regimen: levothyroxine 100 g every a.m. Symptoms: Fatigue, diffuse myalgias, weight gain. Dry skin and hair loss Family history: Mother and father with hypothyroidism on thyroid hormone replacement therapy Currently uses CPAP for sleep apnea PRUDENCE TAYLOR MD [address] [place] [address], [phone], [facility] 07/13/2020 14:39:47 10/14/2020 text/html 59-year-old female patient with a past medical history as detailed in the problem is significant for obesity, obstructive sleep apnea on CPAP, osteoarthritis,primar y hypothyroidism on thyroid hormone replacement therapy seen in the office today for 3 months follow-up visit hyperthyroidism on combine thyroid hormone replacement therapy and obesity. Initially seen on 07/13/2020 for hypothyroidism evaluation further management. Requesting provider: Fred Darling APRN Onset of hypothyroidism: Several years Current regimen: levothyroxine 100 g every a.m. Symptoms: Fatigue, diffuse myalgias, weight gain. Dry skin and hair loss Family history: Mother and father with hypothyroidism on thyroid hormone replacement therapy Currently uses CPAP for sleep apnea Interval history: Started on Liothyronine 5 g every a.m. and 5 g every bedtime in addition to her current dose of levothyroxine 100 g Currently following 1200-calorie diet and still gaining weight PRUDENCE TAYLOR MD [address] [place] [address], [phone], [facility] 10/14/2020 09:33:03 12/30/2020 text/html 60-year-old female patient with a past medical history as detailed in the problem is significant for obesity, obstructive sleep apnea on CPAP, osteoarthritis,primar y hypothyroidism on thyroid hormone replacement therapy seen in the office today for 3 months follow-up visit hyperthyroidism on combine thyroid hormone replacement therapy and obesity on therapy. Summary of history: Initially seen on 07/13/2020 for hypothyroidism evaluation further management. Requesting provider: Fred Darling APRN Onset of hypothyroidism: Several years Current regimen: levothyroxine 100 g every a.m. Symptoms: Fatigue, diffuse myalgias, weight gain. Dry skin and hair loss Family history: Mother and father with hypothyroidism on thyroid hormone replacement therapy Currently uses CPAP for sleep apnea Interval history: Currently takes Liothyronine 5 g every a.m. and 5 g every bedtime in addition to her current dose of levothyroxine 100 g Currently following 1200-calorie diet and still gaining weight Last office visit she was a started on phentermine 15 mg PRUDENCE TAYLOR MD [address] [place] [address], [phone], [facility] 12/30/2020 10:25:11 03/30/2021 text/html 60-year-old female patient with a past medical history as detailed in the problem is significant for obesity, obstructive sleep apnea on CPAP, osteoarthritis,primar y hypothyroidism on thyroid hormone replacement therapy seen in the office today for 3 months follow-up visit hyperthyroidism on combine thyroid hormone replacement therapy and obesity on therapy. Summary of history: Initially seen on 07/13/2020 for hypothyroidism evaluation further management. Requesting provider: Fred Darling APRN Onset of hypothyroidism: Several years Current regimen: levothyroxine 100 g every a.m. Symptoms: Fatigue, diffuse myalgias, weight gain. Dry skin and hair loss Family history: Mother and father with hypothyroidism on thyroid hormone replacement therapy Currently uses CPAP for sleep apnea Interval history: Currently takes Liothyronine 5 g every a.m. and 5 g every bedtime in addition to her current dose of levothyroxine 100 g Currently following 1200-calorie diet a Last office visit phentermine 15 mg was increased to her current dose of 37.5 mg She denies any recent palpitations, shaking, heat intolerance, constipation or dry mouth. PRUDENCE TAYLOR MD [address] [place] [address], [phone], [facility] 03/30/2021 08:57:04 07/15/2021 text/html 60-year-old female patient with a past medical history as detailed in the problem is significant for obesity, obstructive sleep apnea on CPAP, osteoarthritis,primar y hypothyroidism on thyroid hormone replacement therapy seen in the office today for 3 months follow-up visit hyperthyroidism on combine thyroid hormone replacement therapy and obesity Summary of history: Initially seen on 07/13/2020 for hypothyroidism evaluation further management. Requesting provider: Fred Darling APRN Onset of hypothyroidism: Several years Current regimen: levothyroxine 100 g every a.m. Symptoms: Fatigue, diffuse myalgias, weight gain. Dry skin and hair loss Family history: Mother and father with hypothyroidism on thyroid hormone replacement therapy Currently uses CPAP for sleep apnea Interval history: Currently takes Liothyronine 5 g every a.m. and 5 g every bedtime in addition to her current dose of levothyroxine 100 g Currently following 1200-calorie diet a Last office visit phentermine 15 mg was increased to her current dose of 37.5 mg but she discontinued because she felt shaky and jittery. She denies any recent palpitations, shaking, heat intolerance, constipation or dry mouth. PRUDENCE TAYLOR MD [facility] [place], [phone], [facility] 07/15/2021 10:02:44 OBGyn Episode No OBEpisode recorded.
== END 2025-06-24 23:59 | disposition home or self-care (01) ==
LOC: RAD 16:16
PROVIDERS: PCP Nurse Practitioner Family; Visit Provider Nurse Practitioner Family
DX: Z12.31 Encounter for screening mammogram for malignant neoplasm of breast (principal); R92.323 Mammographic fibroglandular density, bilateral breasts
CPT/HCPCS: 77063; 77067